=== PATIENT | male | born 1950 | race Caucasian/White ===

== ENCOUNTER 2018-09-15 13:51 | Inpatient (IN) ==
[2018-09-15] MEDS ORDERED: Morphine Inj 4 MG/ML Vial ONE (14:00)
[2018-09-15] MEDS ORDERED: Diphtheria/Tetanus/Pertussis Vaccine Inj 0.5 ML Syringe IM ONE (14:02)
[2018-09-15] MEDS ORDERED: Lidocaine PF 1% Inj 30 ML Vial ONE (14:15)
[2018-09-15 14:16] LABS: Baso # (Auto) 0.1 th/mm3 (0.0-0.2); Baso % (Auto) 1.1 % (0.0-2.0); Eos # (Auto) 1.2 th/mm3 (0.0-0.4); Eos % (Auto) 11.5 % (0.0-4.0); Hematocrit 38.5 % (39.0-51.0); Hemoglobin 13.5 gm/dL (13.0-17.0); Lymph # (Auto) 0.6 th/mm3 (1.0-4.8); Lymph % (Auto) 6.3 % (9.0-44.0); Mean Corpuscular Volume 91.4 fL (80.0-100.0); Mean Platelet Volume 7.5 fL (7.0-11.0); Mono # (Auto) 0.8 th/mm3 (0.0-0.9); Mono % (Auto) 8.4 % (0.0-8.0); Neut # (Auto) 7.3 th/mm3 (1.8-7.7); Neut % (Auto) 72.7 % (16.0-70.0); Platelet Count 218 th/mm3 (150-450); Red Blood Count 4.22 mil/mm3 (4.50-5.90); Red Cell Distribution Width 13.3 % (11.6-17.2); White Blood Count 10.1 th/mm3 (4.0-11.0)
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
[2018-09-15 14:25] LABS: Activated Partial Thrombo Time 28.2 sec (23.4-31.7); Prothrombin Time 10.2 sec (9.8-11.6)
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
[2018-09-15] MEDS ORDERED: fentaNYL Citrate Inj 100 MCG/2 ML Ampul ONE (14:37)
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
--- NOTE | 2018-09-15 14:55 | XR ---
EXAM DATE: 09/15/2018 2:45 PM EST AGE/SEX: 68 years / Male INDICATIONS: Post left chest tube placement CLINICAL DATA: This is the patient's initial encounter. Patient reports that signs and symptoms have been present for 1 day and indicates a pain score of Nonresponsive. MEDICAL/SURGICAL HISTORY: Non-responsive. Non-responsive. COMPARISON: [facility] – [place], CHEST 1V SINGLE AP, 09/15/2018. . FINDINGS: A single AP view of the chest demonstrates interval placement of a left thoracostomy tube. No pneumot horax observed. Pneumomediastinum noted. Extensive subcutaneous emphysema again seen. No effusions. M ild left basilar atelectasis. Heart is normal in size. CONCLUSION: Interval left chest tube placement. No pneumothorax observed. Pneumomediastinum observed. Electronically signed by: River Lunsford MD 09/15/2018 2:54 PM EST
[2018-09-15] MEDS ORDERED: Morphine Sulfate Inj 2 MG/ML Vial IV.PUSH PRN (15:00)
[2018-09-15] MEDS ORDERED: Morphine Inj 4 MG/ML Vial IV.PUSH PRN (15:04)
[2018-09-15] MEDS ORDERED: Sodium Chloride 0.9% 2 ML Flush PRN IV.FLUSH (15:11)
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
--- NOTE | 2018-09-15 15:39 | P.OP ---
Preoperative Diagnosis: Left pneumothorax Postoperative Diagnosis: Left pneumothorax Date of procedure: 09/15/18 Procedure: Patient's left chest was sterilely prepped and draped.5th ICR level-transverse incision performed,blunt dissection was performed to the rib.Pleural space was entered at the upper margin of the rib.A [address] was inserted and secured to skin with 0-silk.CXR confirms good position of the chest tube. Surgeon: Armida Veliz MD
[2018-09-15] MEDS: Sodium Chloride 0.9% 2 ML Flush BID IV.FLUSH SCH (20:19)
[2018-09-15] MEDS: Docusate Sodium 100 MG Capsule PO SCH (21:05)
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
[2018-09-16] MEDS ORDERED: LORazepam 1 MG Tablet PO PRN (00:13)
[2018-09-16] MEDS ORDERED: Dexmedetomidine Inj 200 MCG in Sodium Chlor 0.9% Inj 48 ML IV.CONT PRN (00:35)
--- NOTE | 2018-09-16 00:51 | XR ---
EXAM DATE: 09/16/2018 12:41 AM EST AGE/SEX: 68 years / Male INDICATIONS: Respiratory failure. CLINICAL DATA: This is the patient's subsequent encounter. Patient reports that signs and symptoms h ave been present for 1 day and indicates a pain score of Nonresponsive. MEDICAL/SURGICAL HISTORY: None. Chest tube, left. [place] [facility] [place], [place]/15/2018. . FINDINGS: Single AP view the chest. Left-sided chest tube remains in place. Severe bilateral subcutaneous emphy sema again seen. New lateral left lower lobe consolidation versus loculated pleural effusion. No evid ence of pneumothorax. CONCLUSION: 1. Extensive bilateral subcutaneous emphysema again seen. 2. No pneumothorax identified. 3. New lateral left lung base confluent opacity indicating pulmonary consolidation or loculated pleu ral effusion. Electronically signed by: Jori Xavier MD 09/16/2018 12:49 AM EST
--- NOTE | 2018-09-16 01:39 | XR ---
EXAM DATE: 09/16/2018 1:31 AM EST AGE/SEX: 68 years / Male INDICATIONS: Left chest tube placement. CLINICAL DATA: This is the patient's subsequent encounter. Patient reports that signs and symptoms h ave been present for 1 day and indicates a pain score of Nonresponsive. MEDICAL/SURGICAL HISTORY: Non-responsive. . Chest tube, left. COMPARISON: [facility] [place]ST 1V SINGLE AP, 09/16/2018. . FINDINGS: Single AP view the chest. Endotracheal tube is now in place with the tip approximately 5 cm above the hue. Extensive bilateral subcutaneous emphysema is again seen along with left-sided chest tube. L ateral left lower hemithorax opacity has decreased. Lungs otherwise clear. No pneumothorax identified . Pneumomediastinum is again noted. CONCLUSION: 1. Endotracheal tube in place. 2. Decrease in lateral left lung base opacity. 3. Extensive bilateral subcutaneous emphysema again seen. Electronically signed by: Jori Xavier MD 09/16/2018 1:37 AM EST
[2018-09-16 01:54] LABS: ABG Base Excess -5.7 mmol/L (-2-2); ABG PCO2 57 mmHg (38-42); ABG PO2 394 mmHg (61-120)
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
--- NOTE | 2018-09-16 02:16 | P.PCN ---
Date of procedure: 09/16/18 Procedure: Endotracheal Intubation Diagnosis: Trauma with massive subcutaneous emphysema Indications: Acute hypoxic and hypercarbic respiratory failure secondary to massive subcutaneous emphysema Consent: Emergent Anesthesia: No anesthesia was required Description of the Procedure: The patient was positioned in the sniffing position. Pre-oxygenation was performed using a nonrebreather mask. No anesthesia was required. The patient was obtunded.. A Poole #2 was used for laryngoscopy and a Grade IIb view was obtained. There was significant edema of the hypopharynx and larynx which distorted the anatomy. This is likely secondary to his massive subcutaneous emphysema. A 8.5 cuffed endotracheal tube was inserted atraumatically through the vocal cords. Confirmation of correct endotracheal tube placement was made by equal and bilateral breath sounds and colorimetric CO2 detection. The endotracheal tube was secured at 25 cm at the teeth. There were no immediate complications noted. The patient remained hemodynamically stable throughout the procedure. A chest x-ray has been ordered. I personally performed the procedure.
--- NOTE | 2018-09-16 02:17 | P.PCN ---
Date of procedure: 09/16/18 Procedure: Procedure: Arterial Line Placement Left radial arterial line Diagnosis: Massive subcutaneous emphysema Indications: Need for beat to beat hemodynamic monitoring Consent: Emergent Description of the Procedure: The left wrist was prepped and draped sterilely. 1% lidocaine was used for local anesthesia. The pulse was located and a needle was advanced into the artery. A 20 gauge, 12 cm catheter was advanced into the artery using a modified Seldinger technique. The catheter was sutured to the skin and a sterile dressing was applied. The catheter was connected to a pressure transducer and an arterial waveform was noted. There were no immediate complications noted. There was minimal EBL. I personally performed the procedure.
[2018-09-16] MEDS ORDERED: fentaNYL 10 mcg/mL Premix Drip 2,500 MCG/250 ML BAG IV.SIG PRN (02:18)
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
[2018-09-16] MEDS ORDERED: Albumin Human 5% Inj 500 ML IV.SIG ONE (02:19)
[2018-09-16] MEDS ORDERED: Sod Chloride 0.9% Inj 2,000 ML IV.SIG ONE (02:30)
--- NOTE | 2018-09-16 02:43 | P.EN ---
Called by RN initially for DT-CIWA protocol ordered. Received a second call about 35 min later-indicating that the patient is in respiratory distress requiring 100 NRB-which sounded that patient will need to be intubated At this time I was about to start a laparotomy and asked 's assistance evaluated the patient-he proceeded with orotracheal intubation-he also felt that patient may benefit from a second chest tube on the left-and he proceeded with the procedure patient after intubation dropped BP was resuscitated by Dr.Green Hua's prompt assistance is appreciated by the trauma team
[2018-09-16] MEDS: fentaNYL 10 mcg/mL Premix Drip 2,500 MCG/250 ML BAG IV.SIG PRN (02:54)
[2018-09-16] MEDS ORDERED: Midazolam Inj 5 MG/ML 1 ML Vial ONE (03:17)
[2018-09-16] MEDS ORDERED: Propofol Inj 500 MG/50 ML Vial ONE (03:17)
[2018-09-16] MEDS: Chlorhexidine Gluconate 2% 1 Pack (2 Cloths) TOPICAL SCH (03:52)
[2018-09-16] MEDS ORDERED: Midazolam Inj 5 MG/ML 1 ML Vial IV.PUSH ONE ×2 (04:00→11:45)
[2018-09-16] MEDS ORDERED: Chlorhexidine Gluconate 2% 1 Pack (2 Cloths) TOPICAL PRN ×2 (04:00)
[2018-09-16] MEDS ORDERED: Chlorhexidine Gluconate 2% 1 Pack (2 Cloths) TOPICAL SCH (04:00)
--- NOTE | 2018-09-16 04:26 | XR ---
EXAM DATE: 09/16/2018 4:18 AM EST AGE/SEX: 68 years / Male INDICATIONS: Verify OG placement. Respiratory distress. CLINICAL DATA: This is the patient's subsequent encounter. Patient reports that signs and symptoms h ave been present for 2 days and indicates a pain score of Nonresponsive. MEDICAL/SURGICAL HISTORY: Chronic obstructive pulmonary disease. Chest tube, left. COMPARISON: [facility] – [place], CHEST 1V SINGLE AP, 09/16/2018. . FINDINGS: 2 AP views of the chest. Nasogastric tube is now seen with the tip below the [id number] of the rad iographs. Endotracheal tube remains in place. Left-sided chest tube also remains in place. Extensive bilateral subcutaneous emphysema is again seen. No pneumothorax identified. Mild patchy opa city of the left lung base unchanged. Pneumomediastinum is again seen. CONCLUSION: 1. Nasogastric tube now seen. 2. Extensive bilateral subcutaneous emphysema and pneumomediastinum again noted. 3. No pneumothorax is seen. 4. Mild patchy opacity left lung base unchanged. Electronically signed by: Jori Xavier MD 09/16/2018 4:25 AM EST
[2018-09-16] MEDS: Oral Hygiene Kit OROPHARYNG SCH ×3 (04:40→16:07)
[2018-09-16 06:23] LABS: Baso % (Auto) 0.2 % (0.0-2.0); Eos % (Auto) 0.3 % (0.0-4.0); Hemoglobin 8.5 gm/dL (13.0-17.0); Lymph # (Auto) 0.3 th/mm3 (1.0-4.8); Lymph % (Auto) 1.8 % (9.0-44.0); Mean Corpuscular Hemoglobin 31.2 pg (27.0-34.0); Mean Platelet Volume 7.8 fL (7.0-11.0); Mono # (Auto) 1.2 th/mm3 (0.0-0.9); Mono % (Auto) 8.7 % (0.0-8.0); Neut # (Auto) 12.3 th/mm3 (1.8-7.7); Platelet Count 175 th/mm3 (150-450); Red Blood Count 2.72 mil/mm3 (4.50-5.90); Red Cell Distribution Width 13.3 % (11.6-17.2); White Blood Count 13.8 th/mm3 (4.0-11.0)
[2018-09-16] MEDS ORDERED: Potassium Chloride 25 MEQ Effervescent Tablet PO PRN (06:48)
[2018-09-16] MEDS ORDERED: Magnesium Oxide 400 MG Tablet PO PRN (06:48)
[2018-09-16] MEDS ORDERED: Potassium Chlor 20 mEq Premix 20 MEQ/100 ML PIGGYBACK IV.SIG PRN ×2 (06:48)
[2018-09-16] MEDS ORDERED: Potassium Chlor 40 mEq Premix 40 MEQ/100 ML PIGGYBACK IV.SIG PRN ×2 (06:48)
[2018-09-16] MEDS ORDERED: Potassium Phosphate 500 MG Soluble Tablet PO PRN ×2 (06:48)
[2018-09-16] MEDS ORDERED: Potassium Phosphate Inj 30 MMOL in Sodium Chlor 0.9% Inj 250 ML IV.SIG PRN (06:48)
[2018-09-16] MEDS ORDERED: Magnesium Sulfate Inj 2 GM in Sodium Chlor 0.9% Inj 96 ML IV.SIG PRN (06:48)
[2018-09-16] MEDS ORDERED: Magnesium Sulfate Inj 4 GM in Sodium Chlor 0.9% Inj 92 ML IV.SIG PRN (06:48)
[2018-09-16] MEDS ORDERED: Sodium Phosphate Inj 30 MMOL in Sodium Chlor 0.9% Inj 250 ML IV.SIG PRN (06:48)
[2018-09-16 06:55] LABS: Calcium 7.7 mg/dL (8.5-10.1); Carbon Dioxide 18.8 meq/L (21.0-32.0); Potassium 4.4 meq/L (3.5-5.1)
[2018-09-16] MEDS ORDERED: Sodium Chlor 0.9% Inj 250 ML IV.SIG SCH (09:00)
[2018-09-16 09:32] LABS: ABG Base Excess -5.1 mmol/L (-2-2); ABG PCO2 27 mmHg (38-42); ABG PO2 196 mmHg (61-120)
[2018-09-16] MEDS: Famotidine PF Inj 20 MG/2 ML Vial IV.PUSH SCH ×2 (09:37→21:20)
[2018-09-16] MEDS: Propofol 1000 mg/100 ml Inj 1,000 MG/100 ML BOTTLE IV.CONT PRN ×2 (09:38→17:42)
[2018-09-16] MEDS: Docusate Sodium 100 MG Capsule PO SCH ×2 (09:40→21:19)
[2018-09-16] MEDS: Chlorhexidine 0.12% Oral Kit 15 ML UDC OROPHARYNG SCH ×2 (09:40→21:19)
[2018-09-16] MEDS: Sodium Chloride 0.9% 2 ML Flush BID IV.FLUSH SCH ×2 (09:40→21:20)
--- NOTE | 2018-09-16 11:10 | P.PNVS ---
Subjective Subjective/Hospital Course: intubated overnight Objective Vital Signs / I&O: Vital Signs 09/15/18 14:06 09/15/18 16:00 09/15/18 16:30 Temperature 98.7 F Pulse Rate 80 93 H Respiratory Rate 14 19 Blood Pressure 143/73 H 143/73 H Pulse Oximetry 100 100 100 09/15/18 17:00 09/15/18 17:30 09/15/18 17:51 Temperature Pulse Rate 88 84 97 H Respiratory Rate 19 13 16 Blood Pressure 145/69 H 132/70 Pulse Oximetry 100 100 09/15/18 18:00 09/15/18 19:00 09/15/18 19:30 Temperature Pulse Rate 85 79 78 Respiratory Rate 15 15 15 Blood Pressure 132/64 108/64 110/61 Pulse Oximetry 99 98 97 09/15/18 20:00 09/15/18 20:16 09/15/18 21:00 Temperature 97.8 F Pulse Rate 88 96 H 82 Respiratory Rate 18 17 15 Blood Pressure 119/71 125/70 Pulse Oximetry 100 99 09/15/18 22:00 09/15/18 22:30 09/15/18 23:00 Temperature Pulse Rate 84 85 79 Respiratory Rate 14 15 14 Blood Pressure 106/65 141/70 H 114/69 Pulse Oximetry 92 L 100 97 09/15/18 23:30 09/15/18 23:47 09/16/18 00:00 Temperature Pulse Rate 90 153 H 149 H Respiratory Rate 24 36 H 38 H Blood Pressure 153/99 H 215/125 H 139/87 Pulse Oximetry 100 93 L 99 09/16/18 00:27 09/16/18 00:30 09/16/18 00:35 Temperature Pulse Rate 140 H Respiratory Rate 21 Blood Pressure 145/86 H 140/79 Pulse Oximetry 97 98 98 09/16/18 00:44 09/16/18 00:48 09/16/18 00:58 Temperature Pulse Rate 141 H 137 H 133 H Respiratory Rate 23 Blood Pressure 97/60 L 96/55 L 77/52 L Pulse Oximetry 98 98 99 09/16/18 01:00 09/16/18 01:11 09/16/18 01:14 Temperature Pulse Rate 132 H 119 H 116 H Respiratory Rate 22 31 H 23 Blood Pressure 67/41 L 58/39 L Pulse Oximetry 99 99 09/16/18 01:16 09/16/18 01:18 09/16/18 01:20 Temperature Pulse Rate 116 H 115 H 112 H Respiratory Rate 18 18 Blood Pressure 58/41 L 64/46 L 66/39 L Pulse Oximetry 100 99 99 09/16/18 01:25 09/16/18 01:30 09/16/18 02:00 Temperature Pulse Rate 97 H 95 H 109 H Respiratory Rate 22 18 Blood Pressure 87/55 L 94/56 L 139/88 Pulse Oximetry 100 100 100 09/16/18 03:00 09/16/18 03:24 09/16/18 03:50 Temperature Pulse Rate 101 H 94 H Respiratory Rate 18 14 18 Blood Pressure Pulse Oximetry 100 100 09/16/18 04:00 09/16/18 05:00 09/16/18 06:00 Temperature 96.3 F L Pulse Rate 86 79 91 H Respiratory Rate 18 18 18 Blood Pressure 93/59 L Pulse Oximetry 100 100 100 09/16/18 09:39 Temperature Pulse Rate 79 Respiratory Rate 16 Blood Pressure Pulse Oximetry 100 Intake & Output 09/15/18 09/16/18 09/16/18 18:59 06:59 18:59 Intake Total 100 / 100 3000 / 3000 50 / 50 Output Total 280 / 280 850 / 850 244 / 244 Balance -180 / -180 2150 / 2150 -194 / -194 Weight 64.8 kg Intake: IV 100 / 100 3000 / 3000 50 / 50 Precedex Inj 200 MCG In NS Inj 50 / 50 48 ML @ 0.2 MCG/KG/HR 3.24 mls/ hr IV.CONT TITRATE PRN Rx#: [id number] LR 1000 mL Inj 1,000 ML @ 75 300 / 300 mls/hr IV.CONT .[id number] [facility] Rx# :[id number] Ofirmev Inj 1,000 mg In 100 ml 100 / 100 200 / 200 @ 400 mls/hr IV.SIG Q6H [facility] Rx# :[id number] Alburx 5% Inj 500 ML @ 250 mls/ 500 / 500 hr IV.SIG ONCE ONE Rx#:[id number] NS Inj 2,000 ML @ As Directed 1999 / 1999 IV.SIG .Q0M ONE Rx#:[id number] Output: Urine 250 / 250 350 / 350 Urine Amount (Catheter) 500 / 500 Indwelling Urethral Catheter 500 / 500 Chest Tube Drainage 30 / 30 244 / 244 #1 Left Upper 142 / 142 #2 Left Upper 102 / 102 Other: # Voids 1 Weight On Admission 64.8 kg Physical Exam: Left upper extremity with significant subcutaneous emphysema Palpable left radial pulse, no signs of venous congestion Laboratory Results - last 24 hr 09/15/18 09/15/18 09/15/18 13:59 13:59 13:59 WBC 10.1 RBC 4.22 L Hgb 13.5 POC Hgb (Calc) 13.6 Hct 38.5 L POC Hct 40.0 MCV 91.4 MCH 32.0 MCHC 35.0 RDW 13.3 Plt Count 218 MPV 7.5 Neut % (Auto) 72.7 H Lymph % (Auto) 6.3 L Richardson % (Auto) 8.4 H Eos % (Auto) 11.5 H Baso % (Auto) 1.1 Neut # (Auto) 7.3 Lymph # (Auto) 0.6 L Richardson # (Auto) 0.8 Eos # (Auto) 1.2 H Baso # (Auto) 0.1 WBC Differential . Differential Comment Auto diff final PT 10.2 INR 1.0 APTT 28.2 Puncture Site Patient Temperature O2 Saturation ABG pH ABG pCO2 ABG pO2 ABG HCO3 ABG O2 Content ABG Base Excess ABG Methemoglobin Hemoglobin Carboxyhemoglobin O2 Delivery Device Vent Setting Inspired O2 Critical Value POC Sodium 131 L Sodium POC Potassium 4.3 Potassium POC Chloride 91 L Chloride Carbon Dioxide Anion Gap POC BUN 13 BUN Creatinine POC Creatinine 0.8 Estimated GFR POC Glucose 82 Random Glucose Calcium Nasal Screen MRSA (PCR) Blood Type Antibody Screen MTS Gel Crossmatch 09/15/18 09/15/18 09/16/18 13:59 15:00 01:35 WBC RBC Hgb POC Hgb (Calc) Hct POC Hct MCV MCH MCHC RDW Plt Count MPV Neut % (Auto) Lymph % (Auto) Richardson % (Auto) Eos % (Auto) Baso % (Auto) Neut # (Auto) Lymph # (Auto) Richardson # (Auto) Eos # (Auto) Baso # (Auto) WBC Differential Differential Comment PT INR APTT Puncture Site Radha Patient Temperature 98.6 O2 Saturation 97 ABG pH 7.20 L* ABG pCO2 57 H* ABG pO2 394 H ABG HCO3 21 L ABG O2 Content 13.8 ABG Base Excess -5.7 L ABG Methemoglobin 1.2 Hemoglobin 9.4 L Carboxyhemoglobin 0.0 O2 Delivery Device Ventilator Vent Setting See comment Inspired O2 100 Critical Value Yes POC Sodium Sodium POC Potassium Potassium POC Chloride Chloride Carbon Dioxide Anion Gap POC BUN BUN Creatinine POC Creatinine Estimated GFR POC Glucose Random Glucose Calcium Nasal Screen MRSA (PCR) Not detected Blood Type O Positive Antibody Screen Negative MTS Gel Crossmatch 09/16/18 09/16/18 09/16/18 05:29 05:29 08:54 WBC 13.8 H RBC 2.72 L Hgb 8.5 L D POC Hgb (Calc) Hct 25.0 L POC Hct MCV 92.0 MCH 31.2 MCHC 34.0 RDW 13.3 Plt Count 175 MPV 7.8 Neut % (Auto) 89.0 H Lymph % (Auto) 1.8 L Richardson % (Auto) 8.7 H Eos % (Auto) 0.3 Baso % (Auto) 0.2 Neut # (Auto) 12.3 H Lymph # (Auto) 0.3 L Richardson # (Auto) 1.2 H Eos # (Auto) 0.0 Baso # (Auto) 0.0 WBC Differential . Differential Comment Auto diff final PT INR APTT Puncture Site Patient Temperature O2 Saturation ABG pH ABG pCO2 ABG pO2 ABG HCO3 ABG O2 Content ABG Base Excess ABG Methemoglobin Hemoglobin Carboxyhemoglobin O2 Delivery Device Vent Setting Inspired O2 Critical Value POC Sodium Sodium 134 L POC Potassium Potassium 4.4 POC Chloride Chloride 103 Carbon Dioxide 18.8 L Anion Gap 12 POC BUN BUN 16 Creatinine 1.00 POC Creatinine Estimated GFR 75 L POC Glucose Random Glucose 148 H Calcium 7.7 L Nasal Screen MRSA (PCR) Blood Type Antibody Screen MTS Gel Crossmatch See Detail 09/16/18 09:15 WBC RBC Hgb POC Hgb (Calc) Hct POC Hct MCV MCH MCHC RDW Plt Count MPV Neut % (Auto) Lymph % (Auto) Richardson % (Auto) Eos % (Auto) Baso % (Auto) Neut # (Auto) Lymph # (Auto) Richardson # (Auto) Eos # (Auto) Baso # (Auto) WBC Differential Differential Comment PT INR APTT Puncture Site Art line Patient Temperature 98.6 O2 Saturation 96 ABG pH 7.44 H ABG pCO2 27 L ABG pO2 196 H ABG HCO3 18 L ABG O2 Content 11.2 L ABG Base Excess -5.1 L ABG Methemoglobin 0.8 Hemoglobin 7.9 L* Carboxyhemoglobin 0.1 O2 Delivery Device Ventilator Vent Setting Inspired O2 40 Critical Value Yes POC Sodium Sodium POC Potassium Potassium POC Chloride Chloride Carbon Dioxide Anion Gap POC BUN BUN Creatinine POC Creatinine Estimated GFR POC Glucose Random Glucose Calcium Nasal Screen MRSA (PCR) Blood Type Antibody Screen MTS Gel Crossmatch Impressions Chest X-Ray 09/15/18 00:00 CONCLUSION: Interval left chest tube placement. No pneumothorax observed. Pneumomediastinum observed. Venous Doppler Study 09/15/18 00:00 CONCLUSION: Very limited venous Doppler examination of the left upper extremity. Internal jugular, axillary, and subclavian veins cannot be evaluated. Brachial, basilic, cephalic, radial, and ulnar veins show no evidence of thrombus. Chest X-Ray 09/15/18 13:54 CONCLUSION: 1. Limited study. 2. Subcutaneous air. 3. Possible pneumomediastinum. Pelvis X-Ray 09/15/18 13:54 CONCLUSION: No evidence of displaced fracture. Abdomen/Pelvis CT 09/15/18 14:02 CONCLUSION: 1. Small left pneumothorax, pneumomediastinum and subcutaneous emphysema along the chest wall. 2. Left lower lobe airspace disease. 3. Uncomplicated colonic diverticulosis. 4. No evidence of traumatic injury to the abdominal or pelvic soft tissues. Chest CT 09/15/18 14:02 CONCLUSION: 1. Traumatic injury to the upper left anterior chest wall with fractured first rib 2. Extensive subcutaneous emphysema throughout the neck, anterior chest wall and left lateral chest wall. 3. Pneumomediastinum 4. 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 5. Small left pneumothorax 6. Left lower lobe airspace disease 7. COPD with emphysematous changes Chest X-Ray 09/16/18 00:20 CONCLUSION: 1. Extensive bilateral subcutaneous emphysema again seen. 2. No pneumothorax identified. 3. New lateral left lung base confluent opacity indicating pulmonary consolidation or loculated pleural effusion. Chest X-Ray 09/16/18 01:00 CONCLUSION: 1. Endotracheal tube in place. 2. Decrease in lateral left lung base opacity. 3. Extensive bilateral subcutaneous emphysema again seen. Chest X-Ray 09/16/18 15:02 CONCLUSION: 1. Nasogastric tube now seen. 2. Extensive bilateral subcutaneous emphysema and pneumomediastinum again noted. 3. No pneumothorax is seen. 4. Mild patchy opacity left lung base unchanged. 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 Awaiting left upper extremity venous duplex. Omer Carrasquillo MD [facility] [phone]
[2018-09-16] MEDS: Multivitamin Inj 10 ML, Thiamine Inj 100 MG, Folic Acid Inj 1 MG in Sodium Chlor 0.9% I... IV.SIG SCH (11:17)
--- NOTE | 2018-09-16 11:23 | XR ---
EXAM DATE: 09/16/2018 11:16 AM EST AGE/SEX: 68 years / Male INDICATIONS: Pneumothorax, attempted left line placement. CLINICAL DATA: This is the patient's subsequent encounter. Patient reports that signs and symptoms h ave been present for 2 days and indicates a pain score of Nonresponsive. MEDICAL/SURGICAL HISTORY: Chronic obstructive pulmonary disease. . chest tube COMPARISON: [facility] – [place], CHEST 1V SINGLE AP, 09/16/2018. [facility] [place], CT CHEST W CONTRAST, 09/15/2018. . FINDINGS: The ET tube, NG tube and 2 left chest tubes appear well placed. There is extensive subcutaneous emphy sema seen throughout the neck and chest regions. This is unchanged. A pneumothorax is not clearly see n. This increased density at the left base. The right lung appears clear. CONCLUSION: Extensive subcutaneous emphysema. 2 Left-sided chest tubes in place. A pneumothorax is not clearly seen. Left base consolidation or atelectasis. Electronically signed by: Solo Starkey MD 09/16/2018 11:22 AM EST
--- NOTE | 2018-09-16 11:25 | XR ---
EXAM DATE: 09/16/2018 11:18 AM EST AGE/SEX: 68 years / Male INDICATIONS: LONG-TERM, left elbow swelling. CLINICAL DATA: This is the patient's subsequent encounter. Patient reports that signs and symptoms h ave been present for 2 days and indicates a pain score of Nonresponsive. MEDICAL/SURGICAL HISTORY: None. None. COMPARISON: No prior exams available for comparison. FINDINGS: A fracture is not seen. The elbow joint appears normally aligned. The does appear to be suspected IV tubing seen over the volar aspect of the midforearm. There is extensive subcutaneous emphysema. CONCLUSION: Subcutaneous emphysema. Electronically signed by: Solo Starkey MD 09/16/2018 11:23 AM EST
--- NOTE | 2018-09-16 12:07 | P.PNCC ---
Subjective Brief History: 68-year-old male with severe COPD status post [facility] presented with extensive subcu emphysema bilateral pneumothorax on the left side. Patient in the trauma bay awake alert GCS 15 his neck was cleared according to nexus criteria. I also deferred CT scan of the head as patient's GCS is 15 and I wanted to proceed with a stat CT of the chest to see the source of his subcu emphysema as this not be delineated on the plain chest x-ray. 24 Hour Review/Hospital Course: 09/16 Patient deteriorated overnight he required orotracheal intubation and insertion of a second chest tube He was also resuscitated with crystalloid and colloids, he was started on levophed drip Chest x-ray continues to show bilateral subcu emphysema Patient is on conventional settings Lateral chest tubes have air leak this however is decreasing Urine output is adequate, patient is sedated with propofol and fentanyl He has a left subclavian vein thrombosis vascular surgery has been consulted- duplex is inconclusive Objective Vital Signs / I&O: Vital Signs 09/15/18 14:06 09/15/18 16:00 09/15/18 16:30 Temperature 98.7 F Pulse Rate 80 93 H Respiratory Rate 14 19 Blood Pressure 143/73 H 143/73 H Pulse Oximetry 100 100 100 09/15/18 17:00 09/15/18 17:30 09/15/18 17:51 Temperature Pulse Rate 88 84 97 H Respiratory Rate 19 13 16 Blood Pressure 145/69 H 132/70 Pulse Oximetry 100 100 09/15/18 18:00 09/15/18 19:00 09/15/18 19:30 Temperature Pulse Rate 85 79 78 Respiratory Rate 15 15 15 Blood Pressure 132/64 108/64 110/61 Pulse Oximetry 99 98 97 09/15/18 20:00 09/15/18 20:16 09/15/18 21:00 Temperature 97.8 F Pulse Rate 88 96 H 82 Respiratory Rate 18 17 15 Blood Pressure 119/71 125/70 Pulse Oximetry 100 99 09/15/18 22:00 09/15/18 22:30 09/15/18 23:00 Temperature Pulse Rate 84 85 79 Respiratory Rate 14 15 14 Blood Pressure 106/65 141/70 H 114/69 Pulse Oximetry 92 L 100 97 09/15/18 23:30 09/15/18 23:47 09/16/18 00:00 Temperature Pulse Rate 90 153 H 149 H Respiratory Rate 24 36 H 38 H Blood Pressure 153/99 H 215/125 H 139/87 Pulse Oximetry 100 93 L 99 09/16/18 00:27 09/16/18 00:30 09/16/18 00:35 Temperature Pulse Rate 140 H Respiratory Rate 21 Blood Pressure 145/86 H 140/79 Pulse Oximetry 97 98 98 09/16/18 00:44 09/16/18 00:48 09/16/18 00:58 Temperature Pulse Rate 141 H 137 H 133 H Respiratory Rate 23 Blood Pressure 97/60 L 96/55 L 77/52 L Pulse Oximetry 98 98 99 09/16/18 01:00 09/16/18 01:11 09/16/18 01:14 Temperature Pulse Rate 132 H 119 H 116 H Respiratory Rate 22 31 H 23 Blood Pressure 67/41 L 58/39 L Pulse Oximetry 99 99 09/16/18 01:16 09/16/18 01:18 09/16/18 01:20 Temperature Pulse Rate 116 H 115 H 112 H Respiratory Rate 18 18 Blood Pressure 58/41 L 64/46 L 66/39 L Pulse Oximetry 100 99 99 09/16/18 01:25 09/16/18 01:30 09/16/18 02:00 Temperature Pulse Rate 97 H 95 H 109 H Respiratory Rate 22 18 Blood Pressure 87/55 L 94/56 L 139/88 Pulse Oximetry 100 100 100 09/16/18 03:00 09/16/18 03:24 09/16/18 03:50 Temperature Pulse Rate 101 H 94 H Respiratory Rate 18 14 18 Blood Pressure Pulse Oximetry 100 100 09/16/18 04:00 09/16/18 05:00 09/16/18 06:00 Temperature 96.3 F L Pulse Rate 86 79 91 H Respiratory Rate 18 18 18 Blood Pressure 93/59 L Pulse Oximetry 100 100 100 09/16/18 09:39 Temperature Pulse Rate 79 Respiratory Rate 16 Blood Pressure Pulse Oximetry 100 Intake & Output 09/15/18 09/16/18 09/16/18 18:59 06:59 18:59 Intake Total 100 / 100 3000 / 3000 150 / 150 Output Total 280 / 280 850 / 850 244 / 244 Balance -180 / -180 2150 / 2150 -94 / -94 Weight 64.8 kg Intake: IV 100 / 100 3000 / 3000 150 / 150 Precedex Inj 200 MCG In NS Inj 50 / 50 48 ML @ 0.2 MCG/KG/HR 3.24 mls/ hr IV.CONT TITRATE PRN Rx#: [id number] LR 1000 mL Inj 1,000 ML @ 75 300 / 300 mls/hr IV.CONT .[id number] [facility] Rx# :[id number] Ofirmev Inj 1,000 mg In 100 ml 100 / 100 200 / 200 100 / 100 @ 400 mls/hr IV.SIG Q6H [facility] Rx# :[id number] Alburx 5% Inj 500 ML @ 250 mls/ 500 / 500 hr IV.SIG ONCE ONE Rx#:[id number] NS Inj 2,000 ML @ As Directed 1999 / 1999 IV.SIG .Q0M ONE Rx#:[id number] Output: Urine 250 / 250 350 / 350 Urine Amount (Catheter) 500 / 500 Indwelling Urethral Catheter 500 / 500 Chest Tube Drainage 30 / 30 244 / 244 #1 Left Upper 30 / 30 142 / 142 #2 Left Upper 102 / 102 Other: # Voids 1 Weight On Admission 64.8 kg Result Diagrams: 09/16/18 05:29 09/16/18 05:29 Imaging: Impressions Chest X-Ray 09/15/18 00:00 CONCLUSION: Interval left chest tube placement. No pneumothorax observed. Pneumomediastinum observed. Venous Doppler Study 09/15/18 00:00 CONCLUSION: Very limited venous Doppler examination of the left upper extremity. Internal jugular, axillary, and subclavian veins cannot be evaluated. Brachial, basilic, cephalic, radial, and ulnar veins show no evidence of thrombus. Chest X-Ray 09/15/18 13:54 CONCLUSION: 1. Limited study. 2. Subcutaneous air. 3. Possible pneumomediastinum. Pelvis X-Ray 09/15/18 13:54 CONCLUSION: No evidence of displaced fracture. Abdomen/Pelvis CT 09/15/18 14:02 CONCLUSION: 1. Small left pneumothorax, pneumomediastinum and subcutaneous emphysema along the chest wall. 2. Left lower lobe airspace disease. 3. Uncomplicated colonic diverticulosis. 4. No evidence of traumatic injury to the abdominal or pelvic soft tissues. Chest CT 09/15/18 14:02 CONCLUSION: 1. Traumatic injury to the upper left anterior chest wall with fractured first rib 2. Extensive subcutaneous emphysema throughout the neck, anterior chest wall and left lateral chest wall. 3. Pneumomediastinum 4. 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 5. Small left pneumothorax 6. Left lower lobe airspace disease 7. COPD with emphysematous changes Elbow X-Ray 09/16/18 00:00 CONCLUSION: Subcutaneous emphysema. Chest X-Ray 09/16/18 00:20 CONCLUSION: 1. Extensive bilateral subcutaneous emphysema again seen. 2. No pneumothorax identified. 3. New lateral left lung base confluent opacity indicating pulmonary consolidation or loculated pleural effusion. Chest X-Ray 09/16/18 01:00 CONCLUSION: 1. Endotracheal tube in place. 2. Decrease in lateral left lung base opacity. 3. Extensive bilateral subcutaneous emphysema again seen. Chest X-Ray 09/16/18 10:34 CONCLUSION: Extensive subcutaneous emphysema. 2 Left-sided chest tubes in place. A pneumothorax is not clearly seen. Left base consolidation or atelectasis. Chest X-Ray 09/16/18 15:02 CONCLUSION: 1. Nasogastric tube now seen. 2. Extensive bilateral subcutaneous emphysema and pneumomediastinum again noted. 3. No pneumothorax is seen. 4. Mild patchy opacity left lung base unchanged. - Exam COUNTRY DIRECTOR: Burt Coma Score is 9 t Hemodynamic/Cardiac: She requires levo fed moderate dose to maintain an Map the range of 65-70 Pulmonary/Respiratory: Mechanical ventilation extensive subcu emphysema bilateral torso Abdomen/GI Nutrition: abdomen is soft and benign Hematologic: Globin is 8.5 and patient will require 2 units of blood Assessment and Plan Plan: Continue mechanical ventilation Central line was inserted femoral vein as the left subclavian vein is not accessible and I did not want to use the right side as the patient is high risk for pneumothorax at this site as well When patient more stable we will proceed with a PICC line We will start patient on tube feeds We will continue chest tubes to suction We will wean [facility] proxy was updated at the bed
--- NOTE | 2018-09-16 12:11 | P.PCN ---
Date of procedure: 09/16/18 Pre-op diagnosis: Pneumothorax left Post-op diagnosis: same Procedure: Right femoral area was sterilely prepped and draped using the usual technique. Secondary to massive subcu emphysema procedure is technically difficult After several attempts I was able to cannulate the femoral vein, using modified Seldinger technique a femoral triple-lumen catheter was inserted and secured to skin using 3-0 silk. Patient tolerated procedure well. There is good flush and blood return from the line Surgeon: Armida Veliz Pathology: none sent Condition: stable Disposition: ICU
[2018-09-16] MEDS: Heparin - SQ 10,000 UNITS/ML Vial SQ SCH ×2 (14:58→22:45)
[2018-09-16 17:33] LABS: Hematocrit 30.5 % (39.0-51.0); Hemoglobin 10.9 gm/dL (13.0-17.0)
[2018-09-17 04:21] LABS: Baso % (Auto) 0.5 % (0.0-2.0); Eos # (Auto) 0.6 th/mm3 (0.0-0.4); Eos % (Auto) 6.1 % (0.0-4.0); Hematocrit 28.2 % (39.0-51.0); Hemoglobin 9.8 gm/dL (13.0-17.0); Lymph # (Auto) 0.5 th/mm3 (1.0-4.8); Mean Corpuscular HGB Conc 34.6 % (32.0-36.0); Mean Corpuscular Hemoglobin 30.8 pg (27.0-34.0); Mean Platelet Volume 7.9 fL (7.0-11.0); Mono # (Auto) 1.1 th/mm3 (0.0-0.9); Mono % (Auto) 11.5 % (0.0-8.0); Neut % (Auto) 75.9 % (16.0-70.0); Platelet Count 128 th/mm3 (150-450); Red Blood Count 3.17 mil/mm3 (4.50-5.90); Red Cell Distribution Width 15.2 % (11.6-17.2); White Blood Count 9.2 th/mm3 (4.0-11.0)
--- NOTE | 2018-09-17 04:43 | XR ---
EXAM DATE: 09/17/2018 3:47 AM EST AGE/SEX: 68 years / Male INDICATIONS: Pneumothorax CLINICAL DATA: This is the patient's subsequent encounter. Patient reports that signs and symptoms h ave been present for 3 days and indicates a pain score of Nonresponsive. MEDICAL/SURGICAL HISTORY: . Chronic obstructive pulmonary disease. . Chest tube COMPARISON: [facility] – [place], CHEST 1V SINGLE AP, 09/16/2018. . FINDINGS: Endotracheal tube is in good position. NG enters stomach. Left chest tube without significant pneumot horax. Minimal basilar airspace disease. Extensive subcutaneous air in the chest and neck. CONCLUSION: Stable exam with extensive subcutaneous air. No definite pneumothorax. Left chest tube, endotracheal tube and nasogastric tube unchanged. Electronically signed by: Omar Zambrano MD 09/17/2018 4:42 AM EST
[2018-09-17] MEDS: Chlorhexidine Gluconate 2% 1 Pack (2 Cloths) TOPICAL SCH (04:44)
[2018-09-17] MEDS: Oral Hygiene Kit OROPHARYNG SCH ×4 (04:44→18:00)
[2018-09-17 04:48] LABS: Alanine Aminotransferase 15 U/L (12-78); Albumin 2.8 g/dL (3.4-5.0); Anion Gap 6 meq/L (5-15); Aspartate Aminotransferase 18 U/L (15-37); Blood Urea Nitrogen 14 mg/dL (7-18); Calcium 7.9 mg/dL (8.5-10.1); Chloride 103 meq/L (98-107); Glomerular Filtration Rate Greater Than 89 mL/min (>89); Glucose,Random 118 mg/dL (74-106); Sodium 135 meq/L (136-145)
[2018-09-17 04:50] LABS: Alkaline Phosphatase 46 U/L (45-117); Total Protein 5.2 g/dL (6.4-8.2)
[2018-09-17 05:24] LABS: ABG PCO2 37 mmHg (38-42); ABG PO2 157 mmHg (61-120)
[2018-09-17] MEDS: Heparin - SQ 10,000 UNITS/ML Vial SQ SCH ×3 (06:11→21:50)
[2018-09-17] MEDS: Propofol 1000 mg/100 ml Inj 1,000 MG/100 ML BOTTLE IV.CONT PRN ×3 (06:11→23:25)
[2018-09-17] MEDS: Multivitamin Inj 10 ML, Thiamine Inj 100 MG, Folic Acid Inj 1 MG in Sodium Chlor 0.9% I... IV.SIG SCH (08:17)
[2018-09-17] MEDS: Docusate Sodium 100 MG Capsule PO SCH ×2 (08:19→21:48)
[2018-09-17] MEDS: Sodium Chloride 0.9% 2 ML Flush BID IV.FLUSH SCH ×2 (08:19→21:49)
[2018-09-17] MEDS: Chlorhexidine 0.12% Oral Kit 15 ML UDC OROPHARYNG SCH ×2 (08:20→21:47)
[2018-09-17] MEDS ORDERED: Artificial Tears Opth Drops 15 ML Bottle EACH EYE PRN (10:00)
[2018-09-17] MEDS ORDERED: Albumin Human 5% Inj 500 ML IV.SIG ONE (10:00)
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
--- NOTE | 2018-09-17 11:33 | US ---
EXAM DATE: 09/17/2018 10:52 AM EST AGE/SEX: 68 years / Male INDICATIONS: Possible Left subclavian occlusion seen on CT. CLINICAL DATA: This is the patient's subsequent encounter. Patient reports that signs and symptoms h ave been present for 2 days and indicates a pain score of Nonresponsive. MEDICAL/SURGICAL HISTORY: . Left 1st rib fracture. Pneumothorax. . Left double chest tube. COMPARISON: [facility] – [place], US VENOUS DOPPLER ARM LEFT, 09/15/2018. . FINDINGS: Left jugular, subclavian and axillary veins remain obscured by subcutaneous emphysema. CONCLUSION: 1. Nonvisualization of the left jugular, subclavian and axillary veins. 2. Traumatic occlusion cannot be confirmed. Electronically signed by: Jimi Martinez MD 09/17/2018 11:32 AM EST
[2018-09-17] MEDS: Famotidine PF Inj 20 MG/2 ML Vial IV.PUSH SCH ×2 (13:24→21:50)
[2018-09-17] MEDS: fentaNYL 10 mcg/mL Premix Drip 2,500 MCG/250 ML BAG IV.SIG PRN (23:27)
[2018-09-18] MEDS: Oral Hygiene Kit OROPHARYNG SCH ×4 (00:16→16:41)
[2018-09-18 05:36] LABS: Baso % (Auto) 0.3 % (0.0-2.0); Eos # (Auto) 0.7 th/mm3 (0.0-0.4); Eos % (Auto) 9.6 % (0.0-4.0); Hematocrit 24.3 % (39.0-51.0); Hemoglobin 8.6 gm/dL (13.0-17.0); Lymph # (Auto) 0.6 th/mm3 (1.0-4.8); Mean Corpuscular HGB Conc 35.3 % (32.0-36.0); Mean Corpuscular Hemoglobin 31.1 pg (27.0-34.0); Mean Corpuscular Volume 87.9 fL (80.0-100.0); Mean Platelet Volume 7.4 fL (7.0-11.0); Mono # (Auto) 0.8 th/mm3 (0.0-0.9); Mono % (Auto) 11.4 % (0.0-8.0); Neut # (Auto) 4.9 th/mm3 (1.8-7.7); Neut % (Auto) 70.7 % (16.0-70.0); Platelet Count 119 th/mm3 (150-450); Red Blood Count 2.76 mil/mm3 (4.50-5.90)
[2018-09-18 05:46] LABS: ABG Base Excess 3.1 mmol/L (-2-2); ABG PCO2 46 mmHg (38-42); ABG PO2 123 mmHg (61-120)
[2018-09-18 05:51] LABS: Albumin 2.7 g/dL (3.4-5.0); Anion Gap 5 meq/L (5-15); Aspartate Aminotransferase 19 U/L (15-37); Blood Urea Nitrogen 9 mg/dL (7-18); Calcium 7.9 mg/dL (8.5-10.1); Chloride 103 meq/L (98-107); Glomerular Filtration Rate Greater Than 89 mL/min (>89); Glucose,Random 112 mg/dL (74-106); Sodium 138 meq/L (136-145)
[2018-09-18 05:52] LABS: Alanine Aminotransferase 14 U/L (12-78)
[2018-09-18 05:54] LABS: Alkaline Phosphatase 51 U/L (45-117); Total Protein 5.3 g/dL (6.4-8.2)
[2018-09-18] MEDS: Chlorhexidine Gluconate 2% 1 Pack (2 Cloths) TOPICAL SCH (06:15)
[2018-09-18] MEDS: Heparin - SQ 10,000 UNITS/ML Vial SQ SCH ×3 (06:15→21:39)
--- NOTE | 2018-09-18 06:18 | XR ---
EXAM DATE: 09/18/2018 5:19 AM EST AGE/SEX: 68 years / Male INDICATIONS: Shortness of breath, evaluate pneumothorax CLINICAL DATA: This is the patient's subsequent encounter. Patient reports that signs and symptoms h ave been present for 4 - 6 days and indicates a pain score of Nonresponsive. MEDICAL/SURGICAL HISTORY: Chronic obstructive pulmonary disease. . Chest [place] [facility] [place] S[place]17/[place]. . FINDINGS: A single AP view of the chest demonstrates endotracheal tube and nasogastric tube and left chest tube in good position. Extensive subcutaneous air. Patchy airspace disease in the lungs relatively stable . Heart size normal. CONCLUSION: Support apparatus in good position. No pneumothorax. Extensive subcutaneous air. Stable patchy airspa ce disease. Electronically signed by: Omar Zambrano MD 09/18/2018 6:16 AM EST
[2018-09-18] MEDS: Multivitamin Inj 10 ML, Thiamine Inj 100 MG, Folic Acid Inj 1 MG in Sodium Chlor 0.9% I... IV.SIG SCH (09:40)
[2018-09-18] MEDS ORDERED: Albumin Human 5% Inj 500 ML IV.SIG ONE (09:44)
[2018-09-18] MEDS: Sodium Chloride 0.9% 2 ML Flush BID IV.FLUSH SCH ×2 (09:45→21:40)
[2018-09-18] MEDS: Famotidine PF Inj 20 MG/2 ML Vial IV.PUSH SCH (09:45)
[2018-09-18] MEDS: Docusate Sodium 100 MG Capsule PO SCH (09:45)
[2018-09-18] MEDS ORDERED: Sodium Chlor 0.9% Inj 250 ML IV.SIG SCH (10:00)
[2018-09-18] MEDS: Chlorhexidine 0.12% Oral Kit 15 ML UDC OROPHARYNG SCH ×2 (10:51→21:39)
--- NOTE | 2018-09-18 10:59 | P.PNCC ---
Subjective Brief History: 68-year-old male with severe COPD status post NURSING HOME presented with extensive subcu emphysema bilateral pneumothorax on the left side. Patient in the trauma bay awake alert GCS 15 his neck was cleared according to nexus criteria. I also deferred CT scan of the head as patient's GCS is 15 and I wanted to proceed with a stat CT of the chest to see the source of his subcu emphysema as this not be delineated on the plain chest x-ray. 24 Hour Review/Hospital Course: 09/16 Patient deteriorated overnight he required orotracheal intubation and insertion of a second chest tube He was also resuscitated with crystalloid and colloids, he was started on levophed drip Chest x-ray continues to show bilateral subcu emphysema Patient is on conventional settings Lateral chest tubes have air leak this however is decreasing Urine output is adequate, patient is sedated with propofol and fentanyl He has a left subclavian vein thrombosis vascular surgery has been consulted- duplex is inconclusive 09/17 Patient is doing better today He is only on 2 mics of levophed-his oxygenation also improved he is on basic vent settings Tolerating his tube feeds Continues to have air leak from 1 of the chest tubes X-ray no pneumothorax or large amount of subcutaneous air Vascular surgery will repeat the ultrasound of the subclavian vein We will obtain a PICC line as patient has a femoral line-2 small access options we have She is tolerating his tube feeds 09/18 He-started back on levo fed now is 5 mics an hour ,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 He is making good urine output so I believe he is perfusing adequately he also has no base deficit on the ABG, he is certainly slightly third spacing secondary to Sirs His hemoglobin is 8.5 I will give him 1 unit of blood and also 500 cc of albumin He is following commands not able to open his eyes secondary to severe subcu emphysema He is tolerating his tube feeds Doing actually very well on the ventilator with adequate PF ratio on FiO2 of 35 Continues to have an air leak from chest tube #2, will have chest tube #1 2 waterseal Objective Vital Signs / I&O: Vital Signs 09/17/18 11:00 09/17/18 11:15 09/17/18 11:30 Temperature Pulse Rate 84 89 91 H Respiratory Rate 16 31 H 18 Blood Pressure Pulse Oximetry 100 100 100 09/17/18 11:45 09/17/18 12:00 09/17/18 12:11 Temperature Pulse Rate 92 H 104 H 98 H Respiratory Rate 19 18 19 Blood Pressure Pulse Oximetry 100 100 09/17/18 12:14 09/17/18 12:15 09/17/18 12:30 Temperature Pulse Rate 94 H 90 Respiratory Rate 19 18 19 Blood Pressure Pulse Oximetry 100 100 100 09/17/18 12:45 09/17/18 13:00 09/17/18 13:15 Temperature Pulse Rate 87 86 86 Respiratory Rate 18 16 13 Blood Pressure Pulse Oximetry 100 100 100 09/17/18 13:30 09/17/18 13:45 09/17/18 14:00 Temperature Pulse Rate 86 84 84 Respiratory Rate 17 13 16 Blood Pressure Pulse Oximetry 100 100 100 09/17/18 14:15 09/17/18 14:30 09/17/18 14:45 Temperature Pulse Rate 82 83 82 Respiratory Rate 17 16 16 Blood Pressure Pulse Oximetry 100 100 100 09/17/18 15:00 09/17/18 15:15 09/17/18 15:16 Temperature Pulse Rate 93 H 92 H 89 Respiratory Rate 15 25 H 17 Blood Pressure Pulse Oximetry 100 100 09/17/18 15:17 09/17/18 15:30 09/17/18 15:45 Temperature Pulse Rate 87 88 Respiratory Rate 17 17 15 Blood Pressure Pulse Oximetry 100 100 100 09/17/18 16:00 09/17/18 16:15 09/17/18 16:30 Temperature 98.7 F Pulse Rate 84 84 83 Respiratory Rate 13 12 12 Blood Pressure Pulse Oximetry 100 100 100 09/17/18 16:45 09/17/18 17:00 09/17/18 17:15 Temperature Pulse Rate 83 81 82 Respiratory Rate 13 13 15 Blood Pressure Pulse Oximetry 100 100 100 09/17/18 17:30 09/17/18 17:45 09/17/18 18:00 Temperature Pulse Rate 89 90 90 Respiratory Rate 16 18 18 Blood Pressure Pulse Oximetry 100 100 100 09/17/18 18:15 09/17/18 18:30 09/17/18 18:45 Temperature Pulse Rate 91 H 90 97 H Respiratory Rate 18 17 17 Blood Pressure Pulse Oximetry 100 100 100 09/17/18 19:00 09/17/18 19:15 09/17/18 19:30 Temperature Pulse Rate 88 89 87 Respiratory Rate 16 17 16 Blood Pressure 108/64 Pulse Oximetry 100 100 100 09/17/18 19:45 09/17/18 19:47 09/17/18 19:49 Temperature Pulse Rate 99 H 95 H Respiratory Rate 19 16 18 Blood Pressure Pulse Oximetry 100 100 09/17/18 20:00 09/17/18 20:15 09/17/18 20:30 Temperature Pulse Rate 96 H 100 H 96 H Respiratory Rate 17 16 16 Blood Pressure Pulse Oximetry 100 100 100 09/17/18 20:45 09/17/18 21:00 09/17/18 21:15 Temperature Pulse Rate 95 H 95 H 90 Respiratory Rate 16 16 16 Blood Pressure Pulse Oximetry 100 100 99 09/17/18 21:30 09/17/18 21:45 09/17/18 22:00 Temperature Pulse Rate 90 91 H 89 Respiratory Rate 16 16 16 Blood Pressure Pulse Oximetry 100 100 100 09/17/18 22:15 09/17/18 22:30 09/17/18 22:45 Temperature Pulse Rate 88 90 88 Respiratory Rate 16 16 16 Blood Pressure Pulse Oximetry 100 100 100 09/17/18 23:00 09/17/18 23:15 09/17/18 23:26 Temperature Pulse Rate 90 88 90 Respiratory Rate 16 16 16 Blood Pressure Pulse Oximetry 100 100 09/17/18 23:27 09/17/18 23:30 09/17/18 23:45 Temperature Pulse Rate 90 90 Respiratory Rate 16 16 16 Blood Pressure Pulse Oximetry 100 100 100 09/17/18 23:53 09/18/18 00:00 09/18/18 00:15 Temperature Pulse Rate 90 96 H 86 Respiratory Rate 16 16 16 Blood Pressure 91/50 L Pulse Oximetry 100 100 99 09/18/18 00:30 09/18/18 00:45 09/18/18 01:00 Temperature Pulse Rate 85 84 89 Respiratory Rate 16 16 16 Blood Pressure Pulse Oximetry 100 100 98 09/18/18 01:15 09/18/18 01:30 09/18/18 01:45 Temperature Pulse Rate 81 82 82 Respiratory Rate 16 16 16 Blood Pressure Pulse Oximetry 100 100 100 09/18/18 02:00 09/18/18 02:15 09/18/18 02:30 Temperature Pulse Rate 82 81 83 Respiratory Rate 16 16 16 Blood Pressure Pulse Oximetry 100 100 100 09/18/18 02:45 09/18/18 03:00 09/18/18 03:15 Temperature Pulse Rate 81 81 80 Respiratory Rate 16 16 16 Blood Pressure Pulse Oximetry 100 100 100 09/18/18 03:30 09/18/18 03:45 09/18/18 03:52 Temperature Pulse Rate 82 84 85 Respiratory Rate 16 16 16 Blood Pressure Pulse Oximetry 100 100 100 09/18/18 04:00 09/18/18 04:15 09/18/18 04:30 Temperature Pulse Rate 81 92 H 86 Respiratory Rate 16 16 16 Blood Pressure Pulse Oximetry 100 100 100 09/18/18 04:45 09/18/18 05:00 09/18/18 05:15 Temperature Pulse Rate 84 85 84 Respiratory Rate 16 16 16 Blood Pressure Pulse Oximetry 100 100 100 09/18/18 05:30 09/18/18 05:45 09/18/18 06:00 Temperature 98.4 F Pulse Rate 96 H 86 84 Respiratory Rate 17 16 16 Blood Pressure Pulse Oximetry 100 100 100 09/18/18 06:15 09/18/18 06:30 09/18/18 06:45 Temperature Pulse Rate 85 85 86 Respiratory Rate 16 16 16 Blood Pressure 101/62 Pulse Oximetry 100 100 100 09/18/18 07:00 09/18/18 07:15 09/18/18 07:30 Temperature Pulse Rate 89 86 90 Respiratory Rate 16 16 16 Blood Pressure 97/62 L Pulse Oximetry 100 100 100 09/18/18 07:45 09/18/18 08:00 09/18/18 08:15 Temperature 99.4 F Pulse Rate 84 87 82 Respiratory Rate 16 16 16 Blood Pressure Pulse Oximetry 100 100 100 09/18/18 08:23 09/18/18 08:30 09/18/18 08:35 Temperature Pulse Rate 91 H 77 75 Respiratory Rate 16 16 16 Blood Pressure 94/59 L Pulse Oximetry 100 100 100 09/18/18 08:45 09/18/18 09:00 09/18/18 09:15 Temperature Pulse Rate 60 82 81 Respiratory Rate 16 18 16 Blood Pressure 130/65 102/61 103/62 Pulse Oximetry 99 100 100 09/18/18 09:30 09/18/18 09:45 09/18/18 10:00 Temperature Pulse Rate 81 82 80 Respiratory Rate 16 16 16 Blood Pressure 102/64 100/63 102/64 Pulse Oximetry 100 100 100 09/18/18 10:15 Temperature Pulse Rate 85 Respiratory Rate 16 Blood Pressure 94/66 L Pulse Oximetry 100 Intake & Output 09/17/18 09/18/18 09/18/18 18:59 06:59 18:59 Intake Total 1831.2 / 1831.2 2695 / 2695 Output Total 1215 / 1215 450 / 450 Balance 616.2 / 616.2 2245 / 2245 Weight 72.5 kg Intake: IV 1111.2 / 1111.2 1600 / 1600 LR 1000 mL Inj 1,000 ML @ 50 1000 / 1000 mls/hr IV.CONT .Q20H AUDREY Rx#: [id number] Diprivan 1000 mg/100 ml Inj 1, 100 / 100 100 / 100 000 mg In 100 ml @ 5 MCG/KG/MIN 1.944 mls/hr IV.CONT TITRATE PRN Rx#:[id number] Alburx 5% Inj 500 ML @ 250 mls/ 500 / 500 hr IV.SIG ONCE ONE Rx#:[id number] MVI-12 Inj 10 ML Thiamine Inj 511.2 / 511.2 100 MG Folvite Inj 1 MG In NS Inj 500 ML @ 127.8 mls/hr IV. SIG DAILY AUDREY Rx#:[id number] Levophed-Dextrose 4 mg/250 ml 250 / 250 Drip 4 mg In 250 ml @ 2 MCG/MIN 7.5 mls/hr IV.SIG TITRATE PRN Rx#:[id number] fentaNYL 10 mcg/mL Premix Drip 250 / 250 2,500 mcg In 250 ml @ 50 MCG/HR 5 mls/hr IV.SIG TITRATE PRN Rx #:[id number] Tube Feeding 600 / 600 1065 / 1065 Tube Irrigant 120 / 120 30 / 30 Output: Urine Amount (Catheter) 1175 / 1175 450 / 450 Indwelling Urethral Catheter 1175 / 1175 450 / 450 Chest Tube Drainage 40 / 40 0 / 0 #1 Left Upper 40 / 40 0 / 0 #2 Left Upper 0 / 0 Result Diagrams: 09/18/18 05:15 09/18/18 05:15 Imaging: Impressions Upper Extremity Ultrasound 09/17/18 00:00 CONCLUSION: 1. Nonvisualization of the left jugular, subclavian and axillary veins. 2. Traumatic occlusion cannot be confirmed. Chest X-Ray 09/18/18 06:00 CONCLUSION: Support apparatus in good position. No pneumothorax. Extensive subcutaneous air. Stable patchy airspace disease. 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 T Hemodynamic/Cardiac: Patient is on levo fed at 5 mics per hour to maintain M AP more than 65 Pulmonary/Respiratory: Chest x-ray stable with bilateral subcu emphysema Abdomen/GI Nutrition: Abdomen is soft mildly distended tolerating tube feeds Renal/I&O: BUN to creatinine ratio maintained making good urine Assessment and Plan Plan: Continue mechanical ventilation we will proceed with a PICC line tube feeds We will continue one chest tube to suction, number#2 to water seal We will wean Levophed valproic acid acid to support propofol for alcohol withdrawal 1 unit of blood 500 cc of albumin Echocardiogram
[2018-09-18] MEDS: Propofol 1000 mg/100 ml Inj 1,000 MG/100 ML BOTTLE IV.CONT PRN ×2 (11:00→18:55)
--- NOTE | 2018-09-18 14:37 | P.PNVS ---
Subjective Subjective/Hospital Course: Intubated, sedated Follows commands bilaterally Objective Vital Signs / I&O: Vital Signs 09/17/18 14:45 09/17/18 15:00 09/17/18 15:15 Temperature Pulse Rate 82 93 H 92 H Respiratory Rate 16 15 25 H Blood Pressure Pulse Oximetry 100 100 100 09/17/18 15:16 09/17/18 15:17 09/17/18 15:30 Temperature Pulse Rate 89 87 Respiratory Rate 17 17 17 Blood Pressure Pulse Oximetry 100 100 09/17/18 15:45 09/17/18 16:00 09/17/18 16:15 Temperature 98.7 F Pulse Rate 88 84 84 Respiratory Rate 15 13 12 Blood Pressure Pulse Oximetry 100 100 100 09/17/18 16:30 09/17/18 16:45 09/17/18 17:00 Temperature Pulse Rate 83 83 81 Respiratory Rate 12 13 13 Blood Pressure Pulse Oximetry 100 100 100 09/17/18 17:15 09/17/18 17:30 09/17/18 17:45 Temperature Pulse Rate 82 89 90 Respiratory Rate 15 16 18 Blood Pressure Pulse Oximetry 100 100 100 09/17/18 18:00 09/17/18 18:15 09/17/18 18:30 Temperature Pulse Rate 90 91 H 90 Respiratory Rate 18 18 17 Blood Pressure Pulse Oximetry 100 100 100 09/17/18 18:45 09/17/18 19:00 09/17/18 19:15 Temperature Pulse Rate 97 H 88 89 Respiratory Rate 17 16 17 Blood Pressure Pulse Oximetry 100 100 100 09/17/18 19:30 09/17/18 19:45 09/17/18 19:47 Temperature Pulse Rate 87 99 H 95 H Respiratory Rate 16 19 16 Blood Pressure 108/64 Pulse Oximetry 100 100 09/17/18 19:49 09/17/18 20:00 09/17/18 20:15 Temperature Pulse Rate 96 H 100 H Respiratory Rate 18 17 16 Blood Pressure Pulse Oximetry 100 100 100 09/17/18 20:30 09/17/18 20:45 09/17/18 21:00 Temperature Pulse Rate 96 H 95 H 95 H Respiratory Rate 16 16 16 Blood Pressure Pulse Oximetry 100 100 100 09/17/18 21:15 09/17/18 21:30 09/17/18 21:45 Temperature Pulse Rate 90 90 91 H Respiratory Rate 16 16 16 Blood Pressure Pulse Oximetry 99 100 100 09/17/18 22:00 09/17/18 22:15 09/17/18 22:30 Temperature Pulse Rate 89 88 90 Respiratory Rate 16 16 16 Blood Pressure Pulse Oximetry 100 100 100 09/17/18 22:45 09/17/18 23:00 09/17/18 23:15 Temperature Pulse Rate 88 90 88 Respiratory Rate 16 16 16 Blood Pressure Pulse Oximetry 100 100 100 09/17/18 23:26 09/17/18 23:27 09/17/18 23:30 Temperature Pulse Rate 90 90 Respiratory Rate 16 16 16 Blood Pressure Pulse Oximetry 100 100 09/17/18 23:45 09/17/18 23:53 09/18/18 00:00 Temperature Pulse Rate 90 90 96 H Respiratory Rate 16 16 16 Blood Pressure 91/50 L Pulse Oximetry 100 100 100 09/18/18 00:15 09/18/18 00:30 09/18/18 00:45 Temperature Pulse Rate 86 85 84 Respiratory Rate 16 16 16 Blood Pressure Pulse Oximetry 99 100 100 09/18/18 01:00 09/18/18 01:15 09/18/18 01:30 Temperature Pulse Rate 89 81 82 Respiratory Rate 16 16 16 Blood Pressure Pulse Oximetry 98 100 100 09/18/18 01:45 09/18/18 02:00 09/18/18 02:15 Temperature Pulse Rate 82 82 81 Respiratory Rate 16 16 16 Blood Pressure Pulse Oximetry 100 100 100 09/18/18 02:30 09/18/18 02:45 09/18/18 03:00 Temperature Pulse Rate 83 81 81 Respiratory Rate 16 16 16 Blood Pressure Pulse Oximetry 100 100 100 09/18/18 03:15 09/18/18 03:30 09/18/18 03:45 Temperature Pulse Rate 80 82 84 Respiratory Rate 16 16 16 Blood Pressure Pulse Oximetry 100 100 100 09/18/18 03:52 09/18/18 04:00 09/18/18 04:15 Temperature Pulse Rate 85 81 92 H Respiratory Rate 16 16 16 Blood Pressure Pulse Oximetry 100 100 100 09/18/18 04:30 09/18/18 04:45 09/18/18 05:00 Temperature Pulse Rate 86 84 85 Respiratory Rate 16 16 16 Blood Pressure Pulse Oximetry 100 100 100 09/18/18 05:15 09/18/18 05:30 09/18/18 05:45 Temperature Pulse Rate 84 96 H 86 Respiratory Rate 16 17 16 Blood Pressure Pulse Oximetry 100 100 100 09/18/18 06:00 09/18/18 06:15 09/18/18 06:30 Temperature 98.4 F Pulse Rate 84 85 85 Respiratory Rate 16 16 16 Blood Pressure Pulse Oximetry 100 100 100 09/18/18 06:45 09/18/18 07:00 09/18/18 07:15 Temperature Pulse Rate 86 89 86 Respiratory Rate 16 16 16 Blood Pressure 101/62 97/62 L Pulse Oximetry 100 100 100 09/18/18 07:30 09/18/18 07:45 09/18/18 08:00 Temperature 99.4 F Pulse Rate 90 84 87 Respiratory Rate 16 16 16 Blood Pressure Pulse Oximetry 100 100 100 09/18/18 08:15 09/18/18 08:23 09/18/18 08:30 Temperature Pulse Rate 82 91 H 77 Respiratory Rate 16 16 16 Blood Pressure 94/59 L Pulse Oximetry 100 100 100 09/18/18 08:35 09/18/18 08:45 09/18/18 09:00 Temperature Pulse Rate 75 60 82 Respiratory Rate 16 16 18 Blood Pressure 130/65 102/61 Pulse Oximetry 100 99 100 09/18/18 09:15 09/18/18 09:30 09/18/18 09:45 Temperature Pulse Rate 81 81 82 Respiratory Rate 16 16 16 Blood Pressure 103/62 102/64 100/63 Pulse Oximetry 100 100 100 09/18/18 10:00 09/18/18 10:15 09/18/18 10:30 Temperature Pulse Rate 80 85 80 Respiratory Rate 16 16 16 Blood Pressure 102/64 94/66 L 103/64 Pulse Oximetry 100 100 100 09/18/18 10:45 09/18/18 11:00 09/18/18 11:15 Temperature Pulse Rate 96 H 78 79 Respiratory Rate 21 16 16 Blood Pressure 109/69 108/65 107/65 Pulse Oximetry 97 100 100 09/18/18 11:30 09/18/18 11:45 09/18/18 12:00 Temperature Pulse Rate 94 H 94 H 95 H Respiratory Rate 21 16 16 Blood Pressure 126/68 113/69 117/69 Pulse Oximetry 100 100 100 09/18/18 12:01 09/18/18 12:04 09/18/18 12:15 Temperature 99.7 F H 99.5 F Pulse Rate 93 H 96 H Respiratory Rate 16 16 16 Blood Pressure 112/69 Pulse Oximetry 99 99 99 09/18/18 12:30 09/18/18 12:45 09/18/18 13:00 Temperature Pulse Rate 105 H 104 H 100 H Respiratory Rate 16 16 18 Blood Pressure 131/64 Pulse Oximetry 93 L 98 99 09/18/18 13:08 09/18/18 13:09 Temperature Pulse Rate 96 H Respiratory Rate 17 Blood Pressure 118/63 Pulse Oximetry 99 Intake & Output 09/17/18 09/18/18 09/18/18 18:59 06:59 18:59 Intake Total 1831.2 / 1831.2 2695 / 2695 600 / 600 Output Total 1215 / 1215 450 / 450 Balance 616.2 / 616.2 2245 / 2245 600 / 600 Weight 72.5 kg Intake: IV 1111.2 / 1111.2 1600 / 1600 600 / 600 LR 1000 mL Inj 1,000 ML @ 50 1000 / 1000 mls/hr IV.CONT .Q20H AUDREY Rx#: [id number] Diprivan 1000 mg/100 ml Inj 1, 100 / 100 100 / 100 100 / 100 000 mg In 100 ml @ 5 MCG/KG/MIN 1.944 mls/hr IV.CONT TITRATE PRN Rx#:[id number] Alburx 5% Inj 500 ML @ 250 mls/ 500 / 500 500 / 500 hr IV.SIG ONCE ONE Rx#:[id number] MVI-12 Inj 10 ML Thiamine Inj 511.2 / 511.2 100 MG Folvite Inj 1 MG In NS Inj 500 ML @ 127.8 mls/hr IV. SIG DAILY AUDREY Rx#:[id number] Levophed-Dextrose 4 mg/250 ml 250 / 250 Drip 4 mg In 250 ml @ 2 MCG/MIN 7.5 mls/hr IV.SIG TITRATE PRN Rx#:[id number] fentaNYL 10 mcg/mL Premix Drip 250 / 250 2,500 mcg In 250 ml @ 50 MCG/HR 5 mls/hr IV.SIG TITRATE PRN Rx #:[id number] Tube Feeding 600 / 600 1065 / 1065 Tube Irrigant 120 / 120 30 / 30 Intake (Blood Product) Amt 0 / 0 Rbc As-3 Leukoreduced Unit 0 / 0 [id number] Output: Urine Amount (Catheter) 1175 / 1175 450 / 450 Indwelling Urethral Catheter 1175 / 1175 450 / 450 Chest Tube Drainage 40 / 40 0 / 0 #1 Left Upper 40 / 40 0 / 0 #2 Left Upper 0 / 0 Physical Exam: Persistent left upper extremity subcutaneous emphysema Palpable left upper extremity radial pulse Laboratory Results - last 24 hr 09/16/18 09/18/18 09/18/18 08:54 05:15 05:15 WBC 7.0 RBC 2.76 L Hgb 8.6 L Hct 24.3 L MCV 87.9 MCH 31.1 MCHC 35.3 RDW 15.0 Plt Count 119 L MPV 7.4 Neut % (Auto) 70.7 H Lymph % (Auto) 8.0 L [place] % (Auto) 11.4 H Eos % (Auto) 9.6 H Baso % (Auto) 0.3 Neut # (Auto) 4.9 Lymph # (Auto) 0.6 L [place] # (Auto) 0.8 Eos # (Auto) 0.7 H Baso # (Auto) 0.0 WBC Differential . Differential Comment Auto diff final Puncture Site Patient Temperature O2 Saturation ABG pH ABG pCO2 ABG pO2 ABG HCO3 ABG O2 Content ABG Base Excess ABG Methemoglobin Hemoglobin Carboxyhemoglobin O2 Delivery Device Vent Setting Inspired O2 Critical Value Sodium 138 Potassium 4.0 Chloride 103 Carbon Dioxide 30.0 Anion Gap 5 BUN 9 Creatinine 0.70 Estimated GFR Greater than 89 Random Glucose 112 H Calcium 7.9 L Total Bilirubin 0.7 AST 19 ALT 14 Alkaline Phosphatase 51 Total Protein 5.3 L Albumin 2.7 L Blood Type Antibody Screen MTS Gel Crossmatch See Detail 09/18/18 09/18/18 05:35 10:20 WBC RBC Hgb Hct MCV MCH MCHC RDW Plt Count MPV Neut % (Auto) Lymph % (Auto) [place] % (Auto) Eos % (Auto) Baso % (Auto) Neut # (Auto) Lymph # (Auto) [place] # (Auto) Eos # (Auto) Baso # (Auto) WBC Differential Differential Comment Puncture Site [place] Patient Temperature 98.6 O2 Saturation 96 ABG pH 7.40 ABG pCO2 46 H ABG pO2 123 H ABG HCO3 28 H ABG O2 Content 14.3 ABG Base Excess 3.1 H ABG Methemoglobin 1.4 Hemoglobin 10.4 L Carboxyhemoglobin 1.2 O2 Delivery Device Ventilator Vent Setting See comment Inspired O2 35 Critical Value No Sodium Potassium Chloride Carbon Dioxide Anion Gap BUN Creatinine Estimated GFR Random Glucose Calcium Total Bilirubin AST ALT Alkaline Phosphatase Total Protein Albumin Blood Type O Positive Antibody Screen Negative MTS Gel Crossmatch See Detail Impressions Upper Extremity Ultrasound 09/17/18 00:00 CONCLUSION: 1. Nonvisualization of the left jugular, subclavian and axillary veins. 2. Traumatic occlusion cannot be confirmed. Chest X-Ray 09/17/18 06:00 CONCLUSION: Stable exam with extensive subcutaneous air. No definite pneumothorax. Left chest tube, endotracheal tube and nasogastric tube unchanged. Chest X-Ray 09/18/18 06:00 CONCLUSION: Support apparatus in good position. No pneumothorax. Extensive subcutaneous air. Stable patchy airspace disease. 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 I repeated the left upper extreme duplex. It was very limited due to extensive subcutaneous emphysema. We will hold off anticoagulation since the diagnosis is questionable and not confirmed, patient without signs and symptoms of venous occlusion, and the low risk of pulmonary embolism with upper extremity DVT. We will repeat the left upper extremity duplex when the subcutaneous emphysema resolves. Omer Carrasquillo MD [facility] Hospitalifax [facility] [phone]
--- NOTE | 2018-09-18 16:08 | ECHRPT ---
Indication: SOB, BLUNT CHEST TRAUMA CONCLUSIONS No obvious visible pericardial effusion. The transthoracic study is normal by two-dimensional, color flow imaging and Doppler interrogation however imag quality is limited. BP: / HR: Rhythm: Sinus Technical Quality:Very technically difficult study FINDINGS PERICARDIUM No pericardial effusion. Huan Grey MD, FACC, [id number] (Electronically Signed) Final Date:18 September 2018 16:07
[2018-09-18] MEDS: Famotidine 20 MG Tablet PO SCH (21:39)
[2018-09-18] MEDS: Senna/Docusate Sodium 8.6/50 MG Tablet PO SCH (21:39)
[2018-09-18 22:15] LABS: Hematocrit 28.5 % (39.0-51.0); Hemoglobin 9.8 gm/dL (13.0-17.0)
[2018-09-19] MEDS: Oral Hygiene Kit OROPHARYNG SCH ×4 (00:12→16:25)
[2018-09-19] MEDS: Propofol 1000 mg/100 ml Inj 1,000 MG/100 ML BOTTLE IV.CONT PRN (02:35)
--- NOTE | 2018-09-19 03:40 | XR ---
EXAM DATE: 09/19/2018 3:17 AM EST AGE/SEX: 68 years / Male INDICATIONS: Follow up trauma, worsening shortness of breath. CLINICAL DATA: This is the patient's subsequent encounter. Patient reports that signs and symptoms h ave been present for 4 - 6 days and indicates a pain score of Nonresponsive. MEDICAL/SURGICAL HISTORY: Chronic obstructive pulmonary disease. . Chest tube COMPARISON: [facility], CHEST 1V SINGLE AP, 09/18/2018. . FINDINGS: Endotracheal tube in good position. Left chest tube. Extensive subcutaneous air. NG enters stomach. M ild basilar airspace disease. No significant effusion. No pneumothorax. CONCLUSION: Support apparatus in good position. Mild basilar airspace disease. Extensive subcutaneous air. No sig nificant pneumothorax identified. Electronically signed by: Omar Zambarno MD 09/19/2018 3:39 AM EST
[2018-09-19 03:47] LABS: Baso % (Auto) 0.5 % (0.0-2.0); Eos # (Auto) 0.7 th/mm3 (0.0-0.4); Eos % (Auto) 8.6 % (0.0-4.0); Hematocrit 28.3 % (39.0-51.0); Hemoglobin 9.7 gm/dL (13.0-17.0); Lymph # (Auto) 0.4 th/mm3 (1.0-4.8); Lymph % (Auto) 4.8 % (9.0-44.0); Mean Corpuscular HGB Conc 34.3 % (32.0-36.0); Mean Corpuscular Hemoglobin 30.5 pg (27.0-34.0); Mean Corpuscular Volume 88.8 fL (80.0-100.0); Mean Platelet Volume 7.3 fL (7.0-11.0); Mono # (Auto) 0.9 th/mm3 (0.0-0.9); Mono % (Auto) 10.6 % (0.0-8.0); Neut # (Auto) 6.1 th/mm3 (1.8-7.7); Neut % (Auto) 75.5 % (16.0-70.0); Platelet Count 138 th/mm3 (150-450); Red Blood Count 3.19 mil/mm3 (4.50-5.90); White Blood Count 8.1 th/mm3 (4.0-11.0)
[2018-09-19] MEDS: Chlorhexidine Gluconate 2% 1 Pack (2 Cloths) TOPICAL SCH (04:09)
[2018-09-19 04:10] LABS: Anion Gap 4 meq/L (5-15); Blood Urea Nitrogen 10 mg/dL (7-18); Calcium 7.9 mg/dL (8.5-10.1); Carbon Dioxide 28.8 meq/L (21.0-32.0); Chloride 105 meq/L (98-107); Glomerular Filtration Rate Greater Than 89 mL/min (>89); Glucose,Random 109 mg/dL (74-106); Potassium 4.3 meq/L (3.5-5.1); Sodium 138 meq/L (136-145)
[2018-09-19] MEDS: Heparin - SQ 10,000 UNITS/ML Vial SQ SCH ×3 (05:08→22:04)
[2018-09-19] MEDS: fentaNYL 10 mcg/mL Premix Drip 2,500 MCG/250 ML BAG IV.SIG PRN (05:12)
[2018-09-19 05:44] LABS: ABG Base Excess 4.1 mmol/L (-2-2); ABG PCO2 42 mmHg (38-42); ABG PO2 92 mmHg (61-120)
[2018-09-19] MEDS: Famotidine 20 MG Tablet PO SCH ×2 (08:27→20:00)
[2018-09-19] MEDS: Senna/Docusate Sodium 8.6/50 MG Tablet PO SCH ×2 (08:27→20:01)
[2018-09-19] MEDS: Sodium Chloride 0.9% 2 ML Flush BID IV.FLUSH SCH ×2 (08:27→20:01)
[2018-09-19] MEDS: Chlorhexidine 0.12% Oral Kit 15 ML UDC OROPHARYNG SCH ×2 (08:28→20:00)
[2018-09-19] MEDS: Midazolam 100 MG/100 ML Inj 100 MG/100 ML BAG IV.CONT PRN (10:11)
--- NOTE | 2018-09-19 11:55 | P.PNCC ---
Subjective Brief History: 68-year-old male with severe COPD status post FPC presented with extensive subcu emphysema bilateral pneumothorax on the left side. Patient in the trauma bay awake alert GCS 15 his neck was cleared according to nexus criteria. I also deferred CT scan of the head as patient's GCS is 15 and I wanted to proceed with a stat CT of the chest to see the source of his subcu emphysema as this not be delineated on the plain chest x-ray. 24 Hour Review/Hospital Course: 09/16 Patient deteriorated overnight he required orotracheal intubation and insertion of a second chest tube He was also resuscitated with crystalloid and colloids, he was started on levophed drip Chest x-ray continues to show bilateral subcu emphysema Patient is on conventional settings Lateral chest tubes have air leak this however is decreasing Urine output is adequate, patient is sedated with propofol and fentanyl He has a left subclavian vein thrombosis vascular surgery has been consulted- duplex is inconclusive 09/17 Patient is doing better today He is only on 2 mics of levophed-his oxygenation also improved he is on basic vent settings Tolerating his tube feeds Continues to have air leak from 1 of the chest tubes X-ray no pneumothorax or large amount of subcutaneous air Vascular surgery will repeat the ultrasound of the subclavian vein We will obtain a PICC line as patient has a femoral line-2 small access options we have She is tolerating his tube feeds 09/18 He-started back on levo fed now is 5 mics an hour ,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 He is making good urine output so I believe he is perfusing adequately he also has no base deficit on the ABG, he is certainly slightly third spacing secondary to Sirs His hemoglobin is 8.5 I will give him 1 unit of blood and also 500 cc of albumin He is following commands not able to open his eyes secondary to severe subcu emphysema He is tolerating his tube feeds Doing actually very well on the ventilator with adequate PF ratio on FiO2 of 35 Continues to have an air leak from chest tube #2, will have chest tube #1 2 waterseal 09/19/2018 Patient did not sustain neurologic injury but he remains intubated ventilated in the face of additional injuries On small dose propofol and on fentanyl for pain We will start administering some Roxicodone via the NG tube in order to decrease the fentanyl needs Hemodynamically patient is stable On initial arrival he was on small dose Levophed which in the meantime has been removed and patient maintains his blood pressure Bilateral breath sounds on assist control ventilation with decreasing level of FiO2 and excellent PO2 FiO2 gradient Both lungs are expanded and patient has 2 left-sided chest tubes 1 of which has a small air leak Still significant amount of subcutaneous air I believe patient's lung would get worse before it gets better because of the contusion and possible aspiration at the time of the accident Abdomen soft, enteral feeds tolerated Renal function preserved Plan We will patient's PO2 FiO2 gradient is improving he is by no means ready for extubation Cardiac echo pending Medical history not known and this also may be an obstacle to safe extubation Objective Vital Signs / I&O: Vital Signs 09/18/18 12:00 09/18/18 12:01 09/18/18 12:04 Temperature 99.7 F H Pulse Rate 95 H 93 H Respiratory Rate 16 16 16 Blood Pressure 117/69 Pulse Oximetry 100 99 99 09/18/18 12:15 09/18/18 12:30 09/18/18 12:45 Temperature 99.5 F Pulse Rate 96 H 105 H 104 H Respiratory Rate 16 16 16 Blood Pressure 112/69 Pulse Oximetry 99 93 L 98 09/18/18 13:00 09/18/18 13:08 09/18/18 13:09 Temperature Pulse Rate 100 H 96 H 96 H Respiratory Rate 18 17 16 Blood Pressure 131/64 118/63 Pulse Oximetry 99 99 100 09/18/18 13:15 09/18/18 13:30 09/18/18 13:39 Temperature Pulse Rate 94 H 91 H 93 H Respiratory Rate 16 16 16 Blood Pressure 104/62 Pulse Oximetry 100 100 100 09/18/18 13:45 09/18/18 14:00 09/18/18 14:09 Temperature Pulse Rate 93 H 87 86 Respiratory Rate 16 16 16 Blood Pressure 104/62 102/59 L Pulse Oximetry 100 100 100 09/18/18 14:15 09/18/18 14:30 09/18/18 14:39 Temperature Pulse Rate 85 88 85 Respiratory Rate 16 16 16 Blood Pressure 106/63 Pulse Oximetry 100 100 100 09/18/18 14:45 09/18/18 15:00 09/18/18 15:09 Temperature Pulse Rate 90 84 84 Respiratory Rate 16 16 18 Blood Pressure 108/62 Pulse Oximetry 100 100 99 09/18/18 15:15 09/18/18 15:30 09/18/18 15:39 Temperature Pulse Rate 82 85 81 Respiratory Rate 16 16 16 Blood Pressure 94/57 L Pulse Oximetry 100 100 100 09/18/18 15:45 09/18/18 16:00 09/18/18 16:15 Temperature Pulse Rate 80 77 78 Respiratory Rate 16 16 16 Blood Pressure 106/57 L Pulse Oximetry 100 100 100 09/18/18 16:30 09/18/18 16:39 09/18/18 16:45 Temperature Pulse Rate 77 88 85 Respiratory Rate 16 16 16 Blood Pressure 114/63 112/59 L Pulse Oximetry 100 100 100 09/18/18 17:00 09/18/18 17:11 09/18/18 17:15 Temperature 100.1 F H Pulse Rate 87 90 Respiratory Rate 16 16 16 Blood Pressure 110/58 L Pulse Oximetry 100 100 100 09/18/18 17:22 09/18/18 17:30 09/18/18 17:45 Temperature Pulse Rate 86 86 85 Respiratory Rate 16 16 Blood Pressure 100/58 L Pulse Oximetry 100 100 09/18/18 18:00 09/18/18 18:15 09/18/18 18:30 Temperature Pulse Rate 83 81 81 Respiratory Rate 16 16 16 Blood Pressure 122/64 135/72 Pulse Oximetry 100 100 100 09/18/18 18:45 09/18/18 19:00 09/18/18 19:15 Temperature Pulse Rate 84 103 H 108 H Respiratory Rate 16 16 18 Blood Pressure 135/64 Pulse Oximetry 100 98 98 09/18/18 19:30 09/18/18 19:45 09/18/18 20:00 Temperature 100.8 F H Pulse Rate 105 H 110 H 119 H Respiratory Rate 18 16 20 Blood Pressure 135/72 160/73 H Pulse Oximetry 99 99 98 09/18/18 20:15 09/18/18 20:25 09/18/18 20:30 Temperature Pulse Rate 121 H 116 H 117 H Respiratory Rate 17 17 16 Blood Pressure 134/73 Pulse Oximetry 99 100 100 09/18/18 20:45 09/18/18 21:00 09/18/18 21:15 Temperature Pulse Rate 116 H 110 H 114 H Respiratory Rate 18 17 17 Blood Pressure 129/61 Pulse Oximetry 100 100 100 09/18/18 21:30 09/18/18 21:45 09/18/18 22:00 Temperature Pulse Rate 117 H 112 H 114 H Respiratory Rate 17 17 18 Blood Pressure 130/60 129/63 Pulse Oximetry 99 99 92 L 09/18/18 22:15 09/18/18 22:25 09/18/18 22:30 Temperature Pulse Rate 106 H 101 H 100 H Respiratory Rate 16 16 16 Blood Pressure 110/56 L Pulse Oximetry 99 100 100 09/18/18 22:31 09/18/18 22:41 09/18/18 22:45 Temperature Pulse Rate 100 H 95 H 96 H Respiratory Rate 16 16 16 Blood Pressure 113/61 102/58 L Pulse Oximetry 100 99 99 09/18/18 22:46 09/18/18 22:53 09/18/18 23:00 Temperature Pulse Rate 96 H 89 86 Respiratory Rate 17 16 16 Blood Pressure 100/59 L 101/58 L Pulse Oximetry 99 98 98 09/18/18 23:01 09/18/18 23:15 09/18/18 23:16 Temperature Pulse Rate 84 76 76 Respiratory Rate 16 16 16 Blood Pressure 109/62 121/63 Pulse Oximetry 98 98 98 09/18/18 23:30 09/18/18 23:31 09/18/18 23:37 Temperature Pulse Rate 72 73 71 Respiratory Rate 16 16 16 Blood Pressure 129/70 Pulse Oximetry 98 98 09/18/18 23:45 09/18/18 23:46 09/19/18 00:00 Temperature 99 F Pulse Rate 76 68 74 Respiratory Rate 16 16 16 Blood Pressure 127/68 Pulse Oximetry 100 100 99 09/19/18 00:01 09/19/18 00:15 09/19/18 00:16 Temperature Pulse Rate 73 76 75 Respiratory Rate 16 16 16 Blood Pressure 139/73 136/71 Pulse Oximetry 99 99 99 09/19/18 00:30 09/19/18 00:31 09/19/18 00:45 Temperature Pulse Rate 73 73 80 Respiratory Rate 16 16 16 Blood Pressure 141/72 H Pulse Oximetry 99 99 100 09/19/18 00:46 09/19/18 01:00 09/19/18 01:01 Temperature Pulse Rate 80 79 81 Respiratory Rate 16 16 16 Blood Pressure 130/65 122/66 Pulse Oximetry 100 100 100 09/19/18 01:10 09/19/18 01:15 09/19/18 01:16 Temperature Pulse Rate 80 79 Respiratory Rate 16 16 16 Blood Pressure 122/63 Pulse Oximetry 100 100 100 09/19/18 01:30 09/19/18 01:31 09/19/18 01:40 Temperature Pulse Rate 81 80 79 Respiratory Rate 16 16 16 Blood Pressure 119/69 117/66 Pulse Oximetry 100 100 100 09/19/18 01:45 09/19/18 01:46 09/19/18 02:00 Temperature Pulse Rate 80 78 76 Respiratory Rate 16 16 16 Blood Pressure 116/67 Pulse Oximetry 100 100 100 09/19/18 02:01 09/19/18 02:15 09/19/18 02:16 Temperature Pulse Rate 75 98 H 93 H Respiratory Rate 16 26 H 16 Blood Pressure 120/64 121/72 Pulse Oximetry 100 94 L 94 L 09/19/18 02:30 09/19/18 02:31 09/19/18 02:40 Temperature Pulse Rate 116 H 114 H 124 H Respiratory Rate 37 H 27 H 24 Blood Pressure 119/67 175/81 H Pulse Oximetry 82 L 97 92 L 09/19/18 02:45 09/19/18 02:46 09/19/18 03:00 Temperature Pulse Rate 130 H 130 H 131 H Respiratory Rate 26 H 23 24 Blood Pressure 160/75 H Pulse Oximetry 92 L 100 100 09/19/18 03:01 09/19/18 03:09 09/19/18 03:15 Temperature Pulse Rate 131 H 126 H 117 H Respiratory Rate 25 H 21 18 Blood Pressure 205/72 H 137/67 Pulse Oximetry 100 98 97 09/19/18 03:16 09/19/18 03:23 09/19/18 03:30 Temperature Pulse Rate 116 H 108 H 102 H Respiratory Rate 21 16 16 Blood Pressure 106/62 Pulse Oximetry 97 100 09/19/18 03:31 09/19/18 03:40 09/19/18 03:45 Temperature Pulse Rate 101 H 95 H 93 H Respiratory Rate 16 16 16 Blood Pressure 99/57 L 105/63 Pulse Oximetry 100 100 98 09/19/18 03:46 09/19/18 04:00 09/19/18 04:01 Temperature 99.6 F Pulse Rate 93 H 99 H 96 H Respiratory Rate 16 16 16 Blood Pressure 120/57 L 126/62 Pulse Oximetry 97 96 96 09/19/18 04:03 09/19/18 04:15 09/19/18 04:16 Temperature Pulse Rate 88 88 Respiratory Rate 16 16 16 Blood Pressure 124/64 Pulse Oximetry 98 95 95 09/19/18 04:30 09/19/18 04:31 09/19/18 04:45 Temperature Pulse Rate 82 82 79 Respiratory Rate 16 16 16 Blood Pressure 136/63 Pulse Oximetry 96 97 96 09/19/18 04:46 09/19/18 05:00 09/19/18 05:01 Temperature Pulse Rate 79 75 75 Respiratory Rate 16 16 16 Blood Pressure 132/66 144/70 H Pulse Oximetry 96 97 97 09/19/18 05:15 09/19/18 05:16 09/19/18 05:30 Temperature Pulse Rate 74 74 75 Respiratory Rate 16 16 16 Blood Pressure 134/66 Pulse Oximetry 97 97 97 09/19/18 05:31 09/19/18 05:45 09/19/18 05:46 Temperature Pulse Rate 75 74 73 Respiratory Rate 16 16 16 Blood Pressure 126/64 126/65 Pulse Oximetry 97 97 96 09/19/18 06:00 09/19/18 06:01 09/19/18 06:15 Temperature Pulse Rate 68 68 70 Respiratory Rate 16 16 16 Blood Pressure 135/68 Pulse Oximetry 97 98 98 09/19/18 06:16 09/19/18 06:30 09/19/18 06:31 Temperature Pulse Rate 70 72 72 Respiratory Rate 16 16 16 Blood Pressure 130/66 126/65 Pulse Oximetry 98 98 98 09/19/18 06:45 09/19/18 06:46 09/19/18 07:00 Temperature Pulse Rate 70 69 68 Respiratory Rate 16 16 16 Blood Pressure 123/64 Pulse Oximetry 97 98 99 09/19/18 07:01 09/19/18 07:15 09/19/18 07:16 Temperature Pulse Rate 67 66 66 Respiratory Rate 16 16 16 Blood Pressure 129/67 138/74 Pulse Oximetry 99 100 100 09/19/18 07:30 09/19/18 07:31 09/19/18 07:45 Temperature Pulse Rate 66 67 68 Respiratory Rate 16 16 16 Blood Pressure 130/68 Pulse Oximetry 100 100 100 09/19/18 07:46 09/19/18 08:00 09/19/18 08:01 Temperature 99.0 F Pulse Rate 70 78 79 Respiratory Rate 16 26 H 12 Blood Pressure 143/74 H 128/63 Pulse Oximetry 100 100 100 09/19/18 08:15 09/19/18 08:16 09/19/18 08:30 Temperature Pulse Rate 85 82 81 Respiratory Rate 9 L 16 17 Blood Pressure 118/62 Pulse Oximetry 100 100 100 09/19/18 08:31 09/19/18 08:45 09/19/18 08:46 Temperature 99.0 F Pulse Rate 79 85 85 Respiratory Rate 16 16 16 Blood Pressure 116/68 125/72 Pulse Oximetry 100 100 100 09/19/18 09:00 09/19/18 09:01 09/19/18 09:10 Temperature Pulse Rate 88 86 91 H Respiratory Rate 16 16 20 Blood Pressure 121/65 Pulse Oximetry 100 100 100 09/19/18 09:15 09/19/18 09:16 09/19/18 09:30 Temperature Pulse Rate 93 H 93 H 95 H Respiratory Rate 17 20 18 Blood Pressure 117/65 Pulse Oximetry 100 100 99 09/19/18 09:31 09/19/18 09:45 09/19/18 09:46 Temperature Pulse Rate 94 H 92 H 93 H Respiratory Rate 18 17 16 Blood Pressure 119/63 120/64 Pulse Oximetry 99 98 98 09/19/18 10:00 09/19/18 10:01 09/19/18 10:15 Temperature Pulse Rate 117 H 113 H 106 H Respiratory Rate 16 23 18 Blood Pressure 145/71 H Pulse Oximetry 89 L 100 98 09/19/18 10:16 09/19/18 10:30 09/19/18 10:31 Temperature Pulse Rate 105 H 114 H 110 H Respiratory Rate 18 19 18 Blood Pressure 142/55 H 134/66 Pulse Oximetry 97 97 97 09/19/18 10:45 09/19/18 10:46 09/19/18 11:00 Temperature Pulse Rate 120 H 117 H 110 H Respiratory Rate 19 19 20 Blood Pressure 155/71 H Pulse Oximetry 97 97 98 09/19/18 11:01 09/19/18 11:15 09/19/18 11:16 Temperature Pulse Rate 111 H 111 H 109 H Respiratory Rate 17 20 16 Blood Pressure 144/68 H 128/61 Pulse Oximetry 98 97 96 09/19/18 11:39 Temperature Pulse Rate 112 H Respiratory Rate 18 Blood Pressure Pulse Oximetry 100 Intake & Output 09/18/18 09/19/18 09/19/18 18:59 06:59 18:59 Intake Total 4641.2 / 4641.2 1154 / 1154 865 / 865 Output Total 400 / 400 1265 / 1265 Balance 4241.2 / 4241.2 -111 / -111 865 / 865 Weight 75.7 kg Intake: IV 3461.2 / 3461.2 600 / 600 865 / 865 LR 1000 mL Inj 1,000 ML @ 50 1000 / 1000 800 / 800 mls/hr IV.CONT .Q20H [facility] Rx#: [id number] Diprivan 1000 mg/100 ml Inj 1, 200 / 200 100 / 100 65 / 65 000 mg In 100 ml @ 5 MCG/KG/MIN 1.944 mls/hr IV.CONT TITRATE PRN Rx#:[id number] Alburx 5% Inj 500 ML @ 250 mls/ 500 / 500 hr IV.SIG ONCE ONE Rx#:[id number] LR 1000 mL Inj 1,000 ML @ 999 1000 / 1000 mls/hr IV.SIG .Q1H1M [facility] Rx#: [id number] MVI-12 Inj 10 ML Thiamine Inj 511.2 / 511.2 100 MG Folvite Inj 1 MG In NS Inj 500 ML @ 127.8 mls/hr IV. SIG DAILY [facility] Rx#:[id number] Levophed-Dextrose 4 mg/250 ml 250 / 250 Drip 4 mg In 250 ml @ 2 MCG/MIN 7.5 mls/hr IV.SIG TITRATE PRN Rx#:[id number] NS Inj 250 ML @ 15 mls/hr IV. 250 / 250 SIG ONCE [facility] Rx#:[id number] fentaNYL 10 mcg/mL Premix Drip 250 / 250 2,500 mcg In 250 ml @ 50 MCG/HR 5 mls/hr IV.SIG TITRATE PRN Rx #:[id number] Tube Feeding 600 / 600 554 / 554 Tube Irrigant 180 / 180 Intake (Blood Product) Amt 400 / 400 Rbc As-3 Leukoreduced Unit 400 / 400 [id number] Output: Urine Amount (Catheter) 400 / 400 1225 / 1225 Indwelling Urethral Catheter 400 / 400 1225 / 1225 Chest Tube Drainage 40 / 40 #1 Left Upper 0 / 0 #2 Left Upper 40 / 40 Result Diagrams: 09/19/18 03:35 09/19/18 03:35 Imaging: Impressions Chest X-Ray 09/19/18 00:00 CONCLUSION: Support apparatus in good position. Mild basilar airspace disease. Extensive subcutaneous air. No significant pneumothorax identified. Disinhibition Score: 14.00 Aggression Score: 14.00 Lability Score: 14.00 Agitated Behavior Total Score: 14 - Exam CVT TECH: Patient did not sustain neurologic injury but he remains intubated ventilated in the face of additional injuries On small dose propofol and on fentanyl for pain We will start administering some Roxicodone via the NG tube in order to decrease the fentanyl needs Hemodynamic/Cardiac: Hemodynamically patient is stable On initial arrival he was on small dose Levophed which in the meantime has been removed and patient maintains his blood pressure Pulmonary/Respiratory: Bilateral breath sounds on assist control ventilation with decreasing level of FiO2 and excellent PO2 FiO2 gradient Both lungs are expanded and patient has 2 left-sided chest tubes 1 of which has a small air leak Still significant amount of subcutaneous air I believe patient's lung would get worse before it gets better because of the contusion and possible aspiration at the time of the accident Abdomen/GI Nutrition: Abdomen soft, enteral feeds tolerated Renal/I&O: Renal function preserved Assessment and Plan Plan: Continue mechanical ventilation we will proceed with a PICC line tube feeds We will continue one chest tube to suction, number#2 to water seal We will wean Levophed valproic acid acid to support propofol for alcohol withdrawal 1 unit of blood 500 cc of albumin Echocardiogram Attestation: Plan We will patient's PO2 FiO2 gradient is improving he is by no means ready for extubation Cardiac echo pending Medical history not known and this also may be an obstacle to safe extubation Critical care time 34 minutes
[2018-09-19 18:36] LABS: Hematocrit 27.9 % (39.0-51.0); Hemoglobin 10.1 gm/dL (13.0-17.0)
[2018-09-19] MEDS ORDERED: Albumin Human 5% Inj 500 ML IV.SIG ONE (20:00)
[2018-09-20] MEDS: Oral Hygiene Kit OROPHARYNG SCH ×5 (00:49→23:50)
[2018-09-20] MEDS: Chlorhexidine Gluconate 2% 1 Pack (2 Cloths) TOPICAL SCH (03:27)
[2018-09-20 05:02] LABS: Baso % (Auto) 0.3 % (0.0-2.0); Eos # (Auto) 0.6 th/mm3 (0.0-0.4); Eos % (Auto) 9.6 % (0.0-4.0); Hemoglobin 8.8 gm/dL (13.0-17.0); Lymph # (Auto) 0.3 th/mm3 (1.0-4.8); Lymph % (Auto) 4.5 % (9.0-44.0); Mean Corpuscular Hemoglobin 30.6 pg (27.0-34.0); Mean Corpuscular Volume 90.2 fL (80.0-100.0); Mean Platelet Volume 7.3 fL (7.0-11.0); Mono # (Auto) 1.1 th/mm3 (0.0-0.9); Mono % (Auto) 15.9 % (0.0-8.0); Neut # (Auto) 4.7 th/mm3 (1.8-7.7); Neut % (Auto) 69.7 % (16.0-70.0); Platelet Count 145 th/mm3 (150-450); Red Blood Count 2.89 mil/mm3 (4.50-5.90); Red Cell Distribution Width 14.9 % (11.6-17.2); White Blood Count 6.7 th/mm3 (4.0-11.0)
[2018-09-20 05:14] LABS: Anion Gap 5 meq/L (5-15); Blood Urea Nitrogen 13 mg/dL (7-18); Calcium 7.9 mg/dL (8.5-10.1); Carbon Dioxide 29.9 meq/L (21.0-32.0); Chloride 103 meq/L (98-107); Glomerular Filtration Rate Greater Than 89 mL/min (>89); Glucose,Random 102 mg/dL (74-106); Potassium 4.3 meq/L (3.5-5.1); Sodium 138 meq/L (136-145)
[2018-09-20 05:27] LABS: ABG Base Excess 4.7 mmol/L (-2-2); ABG PCO2 40 mmHg (38-42); ABG PO2 117 mmHg (61-120)
[2018-09-20] MEDS: Heparin - SQ 10,000 UNITS/ML Vial SQ SCH (05:59)
[2018-09-20] MEDS: Famotidine 20 MG Tablet PO SCH ×2 (08:57→20:05)
[2018-09-20] MEDS: Sodium Chloride 0.9% 2 ML Flush BID IV.FLUSH SCH ×2 (08:57→20:06)
[2018-09-20] MEDS: Senna/Docusate Sodium 8.6/50 MG Tablet PO SCH ×2 (08:57→20:05)
[2018-09-20] MEDS: Chlorhexidine 0.12% Oral Kit 15 ML UDC OROPHARYNG SCH ×2 (08:58→20:05)
[2018-09-20] MEDS ORDERED: Albumin Human 5% Inj 500 ML IV.SIG ONE ×2 (13:00→22:00)
--- NOTE | 2018-09-20 13:33 | ECHRPT ---
Indication: BLUNT CHEST TRAUMA CONCLUSIONS Technically difficult study. In limited images, the left ventricular systolic function is hyperdynamic with an estimated ejection fraction in the range of 65-70%. No pericardial effusion. BP: / HR: Rhythm: Sinus MEASUREMENTS (Male / Female) Normal Values Technical Quality:Technically difficult study 2D ECHO LV Diastolic Diameter PLAX 3.8 cm 4.2 - 5.9 / 3.9 - 5.3 cm LV Systolic Diameter PLAX 2.6 cm IVS Diastolic Thickness 0.7 cm 0.6 - 1.0 / 0.6 - 0.9 cm LVPW Diastolic Thickness 0.7 cm 0.6 - 1.0 / 0.6 - 0.9 cm LV Relative Wall Thickness 0.4 RV Internal Dim ED PLAX 1.7 cm DOPPLER AV Peak Velocity 127.0 cm/s AV Peak Gradient 6.5 mmHg AV Mean Gradient 4.0 mmHg AV Velocity Time Integral 21.4 cm LVOT Peak Velocity 129.0 cm/s LVOT Peak Gradient 6.7 mmHg LVOT Velocity Time Integral 24.7 cm Mitral E Point Velocity 72.6 cm/s Mitral A Point Velocity 87.4 cm/s Mitral E to A Ratio 0.8 TR Peak Velocity 187.0 cm/s TR Peak Gradient 14.0 mmHg Right Atrial Pressure 10.0 mmHg Pulmonary Artery Systolic Pressu 24.0 mmHg Right Ventricular Systolic Press 24.0 mmHg PV Peak Velocity 136.0 cm/s PV Peak Gradient 7.4 mmHg FINDINGS LEFT VENTRICLE Normal left ventricular size. Wall thickness is normal. In limited images, the left ventricular systolic function is hyperdynamic with an estimated ejection fraction in the range of 65-70%. RIGHT VENTRICLE Grossly normal LEFT ATRIUM The left atrial size is normal. RIGHT ATRIUM The right atrium is not well visualized. ATRIAL SEPTUM The interatrial septum not well visualized. AORTA The aortic root and proximal ascending aorta are not well visualized. MITRAL VALVE Grossly normal mitral valve. No mitral valve stenosis or regurgitation. AORTIC VALVE Trileaflet aortic valve. No aortic valve stenosis or regurgitation. TRICUSPID VALVE Grossly normal There is trace tricuspid valve regurgitation. PULMONARY VALVE The pulmonary valve is not well visualized. PERICARDIUM No pericardial effusion. Gurmeet Quinteros DO (Electronically Signed) Final Date:20 September 2018 13:32
[2018-09-20] MEDS: Enoxaparin Inj 40 MG/0.4 ML Syringe SQ SCH (14:55)
[2018-09-20] MEDS ORDERED: Sod Chloride 0.9% Inj 1,000 ML IV.SIG SCH (18:00)
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
[2018-09-20] MEDS: Sod Chloride 0.9% Inj 1,000 ML IV.SIG SCH (21:36)
[2018-09-20] MEDS: Midazolam 100 MG/100 ML Inj 100 MG/100 ML BAG IV.CONT PRN (23:32)
[2018-09-21] MEDS: fentaNYL 10 mcg/mL Premix Drip 2,500 MCG/250 ML BAG IV.SIG PRN (01:41)
[2018-09-21] MEDS: Oral Hygiene Kit OROPHARYNG SCH ×3 (04:59→15:50)
[2018-09-21 05:07] LABS: Baso % (Auto) 0.2 % (0.0-2.0); Eos # (Auto) 0.7 th/mm3 (0.0-0.4); Eos % (Auto) 10.1 % (0.0-4.0); Hematocrit 23.4 % (39.0-51.0); Hemoglobin 8.2 gm/dL (13.0-17.0); Lymph # (Auto) 0.2 th/mm3 (1.0-4.8); Lymph % (Auto) 3.5 % (9.0-44.0); Mean Corpuscular Hemoglobin 31.3 pg (27.0-34.0); Mean Corpuscular Volume 89.4 fL (80.0-100.0); Mean Platelet Volume 7.5 fL (7.0-11.0); Mono % (Auto) 15.6 % (0.0-8.0); Neut # (Auto) 4.6 th/mm3 (1.8-7.7); Neut % (Auto) 70.6 % (16.0-70.0); Platelet Count 134 th/mm3 (150-450); Red Blood Count 2.62 mil/mm3 (4.50-5.90); White Blood Count 6.6 th/mm3 (4.0-11.0)
[2018-09-21 05:18] LABS: Anion Gap 6 meq/L (5-15); Blood Urea Nitrogen 20 mg/dL (7-18); Calcium 8.1 mg/dL (8.5-10.1); Carbon Dioxide 26.5 meq/L (21.0-32.0); Chloride 107 meq/L (98-107); Glomerular Filtration Rate Greater Than 89 mL/min (>89); Glucose,Random 103 mg/dL (74-106); Potassium 4.2 meq/L (3.5-5.1); Sodium 139 meq/L (136-145)
[2018-09-21] MEDS: Enoxaparin Inj 40 MG/0.4 ML Syringe SQ SCH (08:41)
[2018-09-21] MEDS: Famotidine 20 MG Tablet PO SCH ×2 (08:43→20:57)
[2018-09-21] MEDS: Sodium Chloride 0.9% 2 ML Flush BID IV.FLUSH SCH ×2 (08:43→20:57)
[2018-09-21] MEDS: Senna/Docusate Sodium 8.6/50 MG Tablet PO SCH ×2 (08:43→20:58)
[2018-09-21] MEDS: Chlorhexidine 0.12% Oral Kit 15 ML UDC OROPHARYNG SCH ×2 (08:44→20:58)
--- NOTE | 2018-09-21 10:55 | XR ---
EXAM DATE: 09/21/2018 10:33 AM EST AGE/SEX: 68 years / Male INDICATIONS: Short of breath. CLINICAL DATA: This is the patient's initial encounter. Patient reports that signs and symptoms have been present for 1 week and indicates a pain score of Nonresponsive. MEDICAL/SURGICAL HISTORY: Chronic obstructive pulmonary disease. . chest tube, intubation COMPARISON: [facility] – [place], CHEST 1V SINGLE AP, 09/19/2018. . FINDINGS: Endotracheal tube tip is present several centimeters above the hue. Nasogastric tube descends into the stomach. Left thoracostomy tube is stable in good position. There is extensive subcutaneous emph ysema throughout grossly unchanged. Mild consolidative change at the left lung base. No definite pneu mothorax appreciated. Cardiac contours are stable. CONCLUSION: Stable chest appearance Electronically signed by: Solo Licona MD 09/21/2018 10:53 AM EST
[2018-09-21] MEDS: Sod Chloride 0.9% Inj 1,000 ML IV.SIG SCH ×2 (11:18→18:12)
[2018-09-21] MEDS ORDERED: Sod Chloride 0.9% Inj 1,000 ML IV.SIG SCH (11:24)
[2018-09-21] MEDS: Artificial Tears Opth Drops 15 ML Bottle EACH EYE SCH ×2 (18:12→20:58)
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
[2018-09-22] MEDS: Artificial Tears Opth Drops 15 ML Bottle EACH EYE SCH ×6 (00:39→21:00)
[2018-09-22] MEDS: Oral Hygiene Kit OROPHARYNG SCH ×4 (00:39→16:57)
[2018-09-22] MEDS: fentaNYL 10 mcg/mL Premix Drip 2,500 MCG/250 ML BAG IV.SIG PRN (03:18)
--- NOTE | 2018-09-22 04:54 | XR ---
EXAM DATE: 09/22/2018 4:47 AM EST AGE/SEX: 68 years / Male INDICATIONS: Shortness of breath. CLINICAL DATA: This is the patient's subsequent encounter. Patient reports that signs and symptoms h ave been present for 1 week and indicates a pain score of Nonresponsive. MEDICAL/SURGICAL HISTORY: Chronic obstructive pulmonary disease. None. COMPARISON: [facility], CHEST 1V SINGLE AP, 09/21/2018. . FINDINGS: Left-sided chest tube without significant pneumothorax. Endotracheal tube and nasogastric tube in goo d position. Extensive subcutaneous air. Mild basilar airspace disease is stable. No pneumothorax iden tified. CONCLUSION: Support apparatus in good position with left chest tube. No pneumothorax. Mild basilar airspace disea se. Electronically signed by: Omar Zambrano MD 09/22/2018 4:53 AM EST
[2018-09-22 05:23] LABS: Baso # (Auto) 0.1 th/mm3 (0.0-0.2); Baso % (Auto) 0.5 % (0.0-2.0); Eos # (Auto) 0.4 th/mm3 (0.0-0.4); Eos % (Auto) 4.4 % (0.0-4.0); Hematocrit 25.1 % (39.0-51.0); Hemoglobin 8.4 gm/dL (13.0-17.0); Lymph # (Auto) 0.1 th/mm3 (1.0-4.8); Mean Corpuscular HGB Conc 33.6 % (32.0-36.0); Mean Corpuscular Hemoglobin 30.8 pg (27.0-34.0); Mean Corpuscular Volume 91.7 fL (80.0-100.0); Mean Platelet Volume 7.2 fL (7.0-11.0); Mono # (Auto) 1.6 th/mm3 (0.0-0.9); Mono % (Auto) 17.4 % (0.0-8.0); Neut # (Auto) 7.3 th/mm3 (1.8-7.7); Neut % (Auto) 76.7 % (16.0-70.0); Platelet Count 184 th/mm3 (150-450); Red Blood Count 2.74 mil/mm3 (4.50-5.90); Red Cell Distribution Width 15.2 % (11.6-17.2); White Blood Count 9.5 th/mm3 (4.0-11.0)
[2018-09-22 05:35] LABS: ABG Base Excess -3.1 mmol/L (-2-2); ABG PCO2 44 mmHg (38-42); ABG PO2 133 mmHg (61-120)
[2018-09-22 05:52] LABS: Blood Urea Nitrogen 28 mg/dL (7-18); Calcium 8.1 mg/dL (8.5-10.1); Carbon Dioxide 24.4 meq/L (21.0-32.0); Glomerular Filtration Rate Greater Than 89 mL/min (>89); Glucose,Random 75 mg/dL (74-106)
[2018-09-22 06:28] LABS: Anion Gap 8 meq/L (5-15); Chloride 110 meq/L (98-107); Potassium 4.5 meq/L (3.5-5.1); Sodium 142 meq/L (136-145)
[2018-09-22] MEDS: Sod Chloride 0.9% Inj 1,000 ML IV.SIG SCH ×2 (06:33→16:56)
[2018-09-22] MEDS: Midazolam 100 MG/100 ML Inj 100 MG/100 ML BAG IV.CONT PRN (06:49)
[2018-09-22] MEDS ORDERED: Sod Chloride 0.9% Inj 1,000 ML IV.SIG ONE (07:00)
[2018-09-22] MEDS: Senna/Docusate Sodium 8.6/50 MG Tablet PO SCH ×2 (09:22→21:00)
[2018-09-22] MEDS: Enoxaparin Inj 40 MG/0.4 ML Syringe SQ SCH (09:22)
[2018-09-22] MEDS: Famotidine 20 MG Tablet PO SCH ×2 (09:22→21:00)
[2018-09-22] MEDS: Chlorhexidine 0.12% Oral Kit 15 ML UDC OROPHARYNG SCH ×2 (09:22→21:00)
[2018-09-22] MEDS: Sodium Chloride 0.9% 2 ML Flush BID IV.FLUSH SCH ×2 (09:23→21:00)
[2018-09-22 10:55] LABS: Sodium,Urine Random 9 meq/L
[2018-09-22 11:03] LABS: Creatinine,Urine Random 153 mg/dL (27-300)
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
[2018-09-22] MEDS ORDERED: Sod Chloride 0.9% Inj 1,000 ML IV.SIG SCH (22:30)
[2018-09-23] MEDS: Oral Hygiene Kit OROPHARYNG SCH ×4 (00:04→15:57)
[2018-09-23] MEDS: Artificial Tears Opth Drops 15 ML Bottle EACH EYE SCH ×6 (00:12→21:04)
[2018-09-23] MEDS: Sod Chloride 0.9% Inj 1,000 ML IV.SIG SCH ×2 (03:00→09:22)
[2018-09-23 06:27] LABS: ABG Base Excess -1.6 mmol/L (-2-2); ABG PCO2 50 mmHg (38-42); ABG PO2 104 mmHg (61-120)
[2018-09-23] MEDS: Chlorhexidine 0.12% Oral Kit 15 ML UDC OROPHARYNG SCH ×2 (09:19→21:03)
[2018-09-23] MEDS: Enoxaparin Inj 40 MG/0.4 ML Syringe SQ SCH (09:20)
[2018-09-23] MEDS: Sodium Chloride 0.9% 2 ML Flush BID IV.FLUSH SCH ×2 (09:20→21:03)
[2018-09-23] MEDS: Senna/Docusate Sodium 8.6/50 MG Tablet PO SCH ×2 (09:20→21:04)
[2018-09-23] MEDS: Famotidine 20 MG Tablet PO SCH ×2 (09:21→21:04)
[2018-09-23] MEDS: Hydrocortisone Sod Succinate 100 MG Vial IV.PUSH SCH ×2 (10:20→15:57)
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
[2018-09-23] MEDS: fentaNYL 10 mcg/mL Premix Drip 2,500 MCG/250 ML BAG IV.SIG PRN (18:36)
[2018-09-24] MEDS: Sod Chloride 0.9% Inj 1,000 ML IV.SIG SCH ×4 (00:30→18:41)
[2018-09-24] MEDS: Hydrocortisone Sod Succinate 100 MG Vial IV.PUSH SCH ×4 (01:31→22:20)
[2018-09-24] MEDS: Oral Hygiene Kit OROPHARYNG SCH ×5 (01:39→23:18)
[2018-09-24] MEDS: Artificial Tears Opth Drops 15 ML Bottle EACH EYE SCH ×6 (01:39→20:30)
--- NOTE | 2018-09-24 04:16 | XR ---
EXAM DATE: 09/24/2018 4:01 AM EST AGE/SEX: 68 years / Male INDICATIONS: Respiratory failure. CLINICAL DATA: This is the patient's subsequent encounter. Patient reports that signs and symptoms h ave been present for 1 week and indicates a pain score of Nonresponsive. MEDICAL/SURGICAL HISTORY: Chronic obstructive pulmonary disease. None. COMPARISON: [facility] – [place], CHEST 1V SINGLE AP, 09/22/2018. . FINDINGS: Portable AP view of the chest demonstrates a normal-sized cardiac silhouette. ETT, nasogastric tube, and left chest tube remain present. No pneumothorax is visualized. There is subtle bibasilar opacity. No pleural effusion or pneumothorax is identified. Bilateral chest wall and supraclavicular subcutan eous emphysema remains. CONCLUSION: No significant interval change is identified. Left chest tube remains present and no pneumothorax is identified. There is likely mild atelectasis versus consolidation at the lung bases. Electronically signed by: Solo Coon MD 09/24/2018 4:15 AM EST
[2018-09-24 05:32] LABS: Baso % (Auto) 0.2 % (0.0-2.0); Hematocrit 27.2 % (39.0-51.0); Hemoglobin 9.1 gm/dL (13.0-17.0); Lymph # (Auto) 0.2 th/mm3 (1.0-4.8); Lymph % (Auto) 1.5 % (9.0-44.0); Mean Corpuscular HGB Conc 33.3 % (32.0-36.0); Mean Corpuscular Hemoglobin 30.2 pg (27.0-34.0); Mean Corpuscular Volume 90.8 fL (80.0-100.0); Mean Platelet Volume 7.4 fL (7.0-11.0); Mono # (Auto) 1.1 th/mm3 (0.0-0.9); Mono % (Auto) 9.4 % (0.0-8.0); Neut % (Auto) 88.9 % (16.0-70.0); Platelet Count 297 th/mm3 (150-450); White Blood Count 11.2 th/mm3 (4.0-11.0)
[2018-09-24 06:00] LABS: Anion Gap 8 meq/L (5-15); Blood Urea Nitrogen 33 mg/dL (7-18); Calcium 8.6 mg/dL (8.5-10.1); Carbon Dioxide 25.4 meq/L (21.0-32.0); Chloride 113 meq/L (98-107); Glomerular Filtration Rate Greater Than 89 mL/min (>89); Glucose,Random 127 mg/dL (74-106); Potassium 4.6 meq/L (3.5-5.1); Sodium 146 meq/L (136-145)
[2018-09-24] MEDS: Chlorhexidine 0.12% Oral Kit 15 ML UDC OROPHARYNG SCH ×2 (07:37→20:29)
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
[2018-09-24] MEDS: Enoxaparin Inj 40 MG/0.4 ML Syringe SQ SCH (08:32)
[2018-09-24] MEDS: Famotidine 20 MG Tablet PO SCH ×2 (08:35→20:29)
[2018-09-24] MEDS: Senna/Docusate Sodium 8.6/50 MG Tablet PO SCH ×2 (08:35→20:29)
[2018-09-24] MEDS: Sodium Chloride 0.9% 2 ML Flush BID IV.FLUSH SCH ×2 (08:35→20:29)
[2018-09-24] MEDS ORDERED: RASS Change Order OTHER ONE (09:00)
[2018-09-24] MEDS: Dexmedetomidine Inj 200 MCG in Sodium Chlor 0.9% Inj 48 ML IV.CONT PRN ×3 (09:15→22:26)
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
[2018-09-24] MEDS: fentaNYL 10 mcg/mL Premix Drip 2,500 MCG/250 ML BAG IV.SIG PRN (20:31)
[2018-09-25] MEDS: Artificial Tears Opth Drops 15 ML Bottle EACH EYE SCH ×6 (00:21→20:33)
[2018-09-25] MEDS: Dexmedetomidine Inj 200 MCG in Sodium Chlor 0.9% Inj 48 ML IV.CONT PRN ×4 (02:11→19:09)
[2018-09-25] MEDS: Oral Hygiene Kit OROPHARYNG SCH ×3 (03:48→16:43)
--- NOTE | 2018-09-25 04:01 | XR ---
EXAM DATE: 09/25/2018 3:55 AM EST AGE/SEX: 68 years / Male INDICATIONS: Respiratory failure. CLINICAL DATA: This is the patient's subsequent encounter. Patient reports that signs and symptoms h ave been present for 1 week and indicates a pain score of Nonresponsive. MEDICAL/SURGICAL HISTORY: Chronic obstructive pulmonary disease. Non-responsive. COMPARISON: [facility] – [place], CHEST 1V SINGLE AP, 09/24/2018. [facility] – [place] CHEST 1V SINGLE AP, 09/22/2018. . FINDINGS: Portable AP view of the chest demonstrates a normal-sized cardiac silhouette. ETT and nasogastric tub e remain present. Left chest tube is in place with the tubing kinked at the mediastinum and distal ti p overlying the apex of the left hemithorax. No pneumothorax is identified. There is stable mild biba silar pleural-parenchymal opacity. Bilateral chest wall and supraclavicular subcutaneous emphysema re nessa. CONCLUSION: 1. Left chest tube remains present and is kinked similar to the prior examinations. No pneumothorax is visualized. 2. Stable bibasilar pleural-parenchymal opacities. Electronically signed by: Solo oCon MD 09/25/2018 4:00 AM EST
[2018-09-25] MEDS: Sod Chloride 0.9% Inj 1,000 ML IV.SIG SCH ×3 (04:24→14:57)
[2018-09-25 05:48] LABS: ABG Base Excess -0.3 mmol/L (-2-2); ABG PCO2 35 mmHg (38-42); ABG PO2 136 mmHg (61-120)
[2018-09-25] MEDS: Hydrocortisone Sod Succinate 100 MG Vial IV.PUSH SCH ×2 (06:16→20:33)
[2018-09-25 08:59] LABS: Baso # (Auto) 0.1 th/mm3 (0.0-0.2); Baso % (Auto) 0.5 % (0.0-2.0); Hematocrit 29.4 % (39.0-51.0); Hemoglobin 9.7 gm/dL (13.0-17.0); Lymph # (Auto) 0.1 th/mm3 (1.0-4.8); Mean Corpuscular HGB Conc 32.9 % (32.0-36.0); Mean Corpuscular Hemoglobin 29.9 pg (27.0-34.0); Mean Corpuscular Volume 90.9 fL (80.0-100.0); Mono # (Auto) 1.1 th/mm3 (0.0-0.9); Mono % (Auto) 8.2 % (0.0-8.0); Neut # (Auto) 11.9 th/mm3 (1.8-7.7); Neut % (Auto) 90.3 % (16.0-70.0); Platelet Count 298 th/mm3 (150-450); Red Blood Count 3.23 mil/mm3 (4.50-5.90); Red Cell Distribution Width 15.1 % (11.6-17.2); White Blood Count 13.2 th/mm3 (4.0-11.0)
[2018-09-25 09:23] LABS: Anion Gap 6 meq/L (5-15); Blood Urea Nitrogen 31 mg/dL (7-18); Calcium 8.7 mg/dL (8.5-10.1); Carbon Dioxide 23.6 meq/L (21.0-32.0); Chloride 116 meq/L (98-107); Glomerular Filtration Rate Greater Than 89 mL/min (>89); Glucose,Random 151 mg/dL (74-106); Potassium 4.3 meq/L (3.5-5.1); Sodium 146 meq/L (136-145)
[2018-09-25] MEDS: Chlorhexidine 0.12% Oral Kit 15 ML UDC OROPHARYNG SCH ×2 (09:41→19:53)
[2018-09-25] MEDS: Famotidine 20 MG Tablet PO SCH ×2 (09:41→20:32)
[2018-09-25] MEDS: Sodium Chloride 0.9% 2 ML Flush BID IV.FLUSH SCH ×2 (09:41→20:32)
[2018-09-25] MEDS: Senna/Docusate Sodium 8.6/50 MG Tablet PO SCH ×2 (09:41→20:32)
[2018-09-25] MEDS: Enoxaparin Inj 40 MG/0.4 ML Syringe SQ SCH (09:41)
[2018-09-25] MEDS ORDERED: Midazolam Inj 5 MG/ML 1 ML Vial ONE (11:52)
[2018-09-25] MEDS ORDERED: Midazolam Inj 5 MG/ML 1 ML Vial IV.PUSH ONE (13:00)
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
[2018-09-25] MEDS: Midazolam 100 MG/100 ML Inj 100 MG/100 ML BAG IV.CONT PRN (19:44)
[2018-09-26] MEDS: Sod Chloride 0.9% Inj 1,000 ML IV.SIG SCH (00:04)
[2018-09-26] MEDS: Artificial Tears Opth Drops 15 ML Bottle EACH EYE SCH ×6 (00:05→21:19)
[2018-09-26] MEDS: Oral Hygiene Kit OROPHARYNG SCH ×4 (00:05→16:11)
[2018-09-26 05:38] LABS: Hematocrit 30.5 % (39.0-51.0); Lymph # (Auto) 0.3 th/mm3 (1.0-4.8); Lymph % (Auto) 1.5 % (9.0-44.0); Mean Corpuscular HGB Conc 32.6 % (32.0-36.0); Mean Corpuscular Volume 91.8 fL (80.0-100.0); Mono # (Auto) 1.9 th/mm3 (0.0-0.9); Mono % (Auto) 10.4 % (0.0-8.0); Neut # (Auto) 16.4 th/mm3 (1.8-7.7); Neut % (Auto) 88.1 % (16.0-70.0); Platelet Count 404 th/mm3 (150-450); Red Blood Count 3.32 mil/mm3 (4.50-5.90); White Blood Count 18.6 th/mm3 (4.0-11.0)
[2018-09-26 06:07] LABS: Alanine Aminotransferase 18 U/L (12-78); Albumin 2.3 g/dL (3.4-5.0); Anion Gap 5 meq/L (5-15); Aspartate Aminotransferase 18 U/L (15-37); Blood Urea Nitrogen 32 mg/dL (7-18); Calcium 7.9 mg/dL (8.5-10.1); Carbon Dioxide 29.4 meq/L (21.0-32.0); Chloride 116 meq/L (98-107); Glomerular Filtration Rate 89 mL/min (>89); Glucose,Random 146 mg/dL (74-106); Potassium 4.1 meq/L (3.5-5.1); Sodium 150 meq/L (136-145)
[2018-09-26 06:10] LABS: Alkaline Phosphatase 112 U/L (45-117); Total Protein 5.8 g/dL (6.4-8.2)
[2018-09-26 06:10] LABS: ABG Base Excess 3.6 mmol/L (-2-2); ABG PCO2 49 mmHg (38-42); ABG PO2 98 mmHg (61-120)
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
[2018-09-26] MEDS: Famotidine 20 MG Tablet PO SCH ×2 (09:07→21:18)
[2018-09-26] MEDS: Chlorhexidine 0.12% Oral Kit 15 ML UDC OROPHARYNG SCH ×2 (09:07→21:17)
[2018-09-26] MEDS: Hydrocortisone Sod Succinate 100 MG Vial IV.PUSH SCH ×2 (09:07→23:13)
[2018-09-26] MEDS: Senna/Docusate Sodium 8.6/50 MG Tablet PO SCH ×2 (09:07→21:18)
[2018-09-26] MEDS: Enoxaparin Inj 40 MG/0.4 ML Syringe SQ SCH (09:08)
[2018-09-26] MEDS: Sodium Chloride 0.9% 2 ML Flush BID IV.FLUSH SCH ×2 (09:08→21:19)
--- NOTE | 2018-09-26 12:21 | XR ---
EXAM DATE: 09/26/2018 12:17 PM EST AGE/SEX: 68 years / Male INDICATIONS: Post left chest tube removal CLINICAL DATA: This is the patient's subsequent encounter. Patient reports that signs and symptoms h ave been present for 3 days and indicates a pain score of Nonresponsive. MEDICAL/SURGICAL HISTORY: . Chronic obstructive pulmonary disease. Non-responsive. COMPARISON: C, CHEST 1V SINGLE AP, 09/26/2018. . FINDINGS: The endotracheal tube and NG tube remain in place. The lung arevalo remain well aerated bilaterally. T here is no evidence of pneumothorax. There is a left-sided central line in place. The previously note d left-sided chest tube has been removed. The heart size is within normal limits and stable. There co ntinues to be some subcutaneous emphysema along both chest ferraro. CONCLUSION: 1. Left-sided chest tube removed. 2. No evidence of pneumothorax. Electronically signed by: Everton Carlson MD 09/26/2018 12:19 PM EST
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
[2018-09-26] MEDS: Midazolam 100 MG/100 ML Inj 100 MG/100 ML BAG IV.CONT PRN (16:47)
[2018-09-26 21:02] LABS: ABG Base Excess 4.9 mmol/L (-2-2); ABG PCO2 57 mmHg (38-42); ABG PO2 108 mmHg (61-120)
--- NOTE | 2018-09-26 21:12 | XR ---
EXAM DATE: 09/26/2018 9:08 PM EST AGE/SEX: 68 years / Male INDICATIONS: S/P chest tube removal. CLINICAL DATA: This is the patient's subsequent encounter. Patient reports that signs and symptoms h ave been present for 1 day and indicates a pain score of Nonresponsive. MEDICAL/SURGICAL HISTORY: . Chronic obstructive pulmonary disease. Non-responsive. COMPARISON: [facility], CHEST 1V SINGLE AP, 09/26/2018. . FINDINGS: There is a stable ETT and NGT. Stable subcutaneous emphysema in the lower cervical soft tissues and b ilateral chest ferraro. No significant pneumothorax. Cardiomediastinal contours are within normal limit s. Remainder of exam is unchanged. CONCLUSION: 1. Stable ETT and NGT. 2. No significant pneumothorax with stable subcutaneous emphysema. Electronically signed by: Boy Hays MD 09/26/2018 9:11 PM EST
[2018-09-27] MEDS: Oral Hygiene Kit OROPHARYNG SCH ×4 (01:37→16:30)
[2018-09-27] MEDS: Artificial Tears Opth Drops 15 ML Bottle EACH EYE SCH ×6 (01:37→20:58)
--- NOTE | 2018-09-27 03:37 | XR ---
EXAM DATE: 09/27/2018 3:18 AM EST AGE/SEX: 68 years / Male INDICATIONS: Evaluate for pneumothorax. CLINICAL DATA: This is the patient's subsequent encounter. Patient reports that signs and symptoms h ave been present for 2 weeks and indicates a pain score of Nonresponsive. MEDICAL/SURGICAL HISTORY: Chronic obstructive pulmonary disease. None. COMPARISON: [facility], CHEST 1V SINGLE AP, 09/26/2018. . FINDINGS: Portable frontal views of the chest show an endotracheal tube with the tip 3 cm from the hue. Naso gastric tube tip courses off the inferior margin of the film. Left subclavian central line. Subcutane ous air overlying the base of the neck bilaterally. No pneumothorax. Lungs are clear. Heart is normal in size. No effusions. CONCLUSION: No pneumothorax. Electronically signed by: River Lunsford MD 09/27/2018 3:36 AM EST
[2018-09-27 05:54] LABS: Baso % (Auto) 0.1 % (0.0-2.0); Hematocrit 28.9 % (39.0-51.0); Hemoglobin 9.5 gm/dL (13.0-17.0); Lymph # (Auto) 0.2 th/mm3 (1.0-4.8); Lymph % (Auto) 0.9 % (9.0-44.0); Mean Corpuscular HGB Conc 32.9 % (32.0-36.0); Mean Corpuscular Volume 91.3 fL (80.0-100.0); Mean Platelet Volume 7.6 fL (7.0-11.0); Mono # (Auto) 1.7 th/mm3 (0.0-0.9); Mono % (Auto) 9.2 % (0.0-8.0); Neut # (Auto) 16.2 th/mm3 (1.8-7.7); Neut % (Auto) 89.8 % (16.0-70.0); Platelet Count 324 th/mm3 (150-450); Red Blood Count 3.17 mil/mm3 (4.50-5.90); Red Cell Distribution Width 15.3 % (11.6-17.2)
[2018-09-27 06:16] LABS: ABG Base Excess 6.7 mmol/L (-2-2); ABG PCO2 59 mmHg (38-42); ABG PO2 102 mmHg (61-120)
[2018-09-27 06:21] LABS: Albumin 2.3 g/dL (3.4-5.0); Anion Gap 4 meq/L (5-15); Aspartate Aminotransferase 13 U/L (15-37); Blood Urea Nitrogen 30 mg/dL (7-18); Calcium 8.5 mg/dL (8.5-10.1); Carbon Dioxide 31.4 meq/L (21.0-32.0); Chloride 116 meq/L (98-107); Glomerular Filtration Rate Greater Than 89 mL/min (>89); Glucose,Random 164 mg/dL (74-106); Potassium 4.2 meq/L (3.5-5.1); Sodium 151 meq/L (136-145)
[2018-09-27 06:22] LABS: Alanine Aminotransferase 21 U/L (12-78)
[2018-09-27 06:24] LABS: Alkaline Phosphatase 105 U/L (45-117); Total Protein 5.8 g/dL (6.4-8.2)
[2018-09-27] MEDS: Chlorhexidine 0.12% Oral Kit 15 ML UDC OROPHARYNG SCH ×2 (08:32→20:56)
[2018-09-27] MEDS: Hydrocortisone Sod Succinate 100 MG Vial IV.PUSH SCH ×2 (08:32→20:57)
[2018-09-27] MEDS: Enoxaparin Inj 40 MG/0.4 ML Syringe SQ SCH (08:33)
[2018-09-27] MEDS: Famotidine 20 MG Tablet PO SCH ×2 (08:33→20:55)
[2018-09-27] MEDS: Senna/Docusate Sodium 8.6/50 MG Tablet PO SCH ×2 (08:33→20:56)
[2018-09-27] MEDS: Sodium Chloride 0.9% 2 ML Flush BID IV.FLUSH SCH ×2 (08:34→20:56)
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
[2018-09-27] MEDS: Midazolam 100 MG/100 ML Inj 100 MG/100 ML BAG IV.CONT PRN (14:52)
--- NOTE | 2018-09-27 18:46 | XR ---
EXAM DATE: 09/27/2018 6:40 PM EST AGE/SEX: 68 years / Male INDICATIONS: Evaluate for left sided pneumothorax. CLINICAL DATA: This is the patient's subsequent encounter. Patient reports that signs and symptoms h ave been present for 2 weeks and indicates a pain score of Nonresponsive. MEDICAL/SURGICAL HISTORY: . Chronic obstructive pulmonary disease. None. [place] [facility] [place]. [facility] [place]. . FINDINGS: Patchy, mostly peripheral parenchymal opacities are again demonstrated of both lungs. No pleural effu blanca demonstrated. No pneumothorax. Left chest wall emphysema again seen but decreased. Endotracheal tube tip is approximately 4 cm above the hue. Nasogastric tube courses into the stoma ch. There is a left subclavian central venous catheter with tip in superior vena cava. CONCLUSION: 1. No significant change mild patchy parenchymal consolidation of both lungs. 2. No pneumothorax. 3. Decreasing chest wall emphysema. Electronically signed by: Solo Pinto MD 09/27/2018 6:45 PM EST
[2018-09-28] MEDS: Midazolam 100 MG/100 ML Inj 100 MG/100 ML BAG IV.CONT PRN ×2 (00:20→18:24)
[2018-09-28] MEDS: Oral Hygiene Kit OROPHARYNG SCH ×4 (00:21→15:13)
[2018-09-28] MEDS: Artificial Tears Opth Drops 15 ML Bottle EACH EYE SCH ×6 (00:21→20:43)
[2018-09-28] MEDS: Morphine Inj 4 MG/ML Vial IV.PUSH PRN ×2 (00:27→10:17)
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
[2018-09-28 05:28] LABS: Baso % (Auto) 0.1 % (0.0-2.0); Hemoglobin 8.4 gm/dL (13.0-17.0); Lymph # (Auto) 0.3 th/mm3 (1.0-4.8); Mean Corpuscular HGB Conc 33.5 % (32.0-36.0); Mean Corpuscular Hemoglobin 30.5 pg (27.0-34.0); Mean Platelet Volume 7.9 fL (7.0-11.0); Mono # (Auto) 1.3 th/mm3 (0.0-0.9); Mono % (Auto) 8.7 % (0.0-8.0); Neut % (Auto) 89.2 % (16.0-70.0); Platelet Count 304 th/mm3 (150-450); Red Blood Count 2.75 mil/mm3 (4.50-5.90); Red Cell Distribution Width 15.2 % (11.6-17.2); White Blood Count 14.6 th/mm3 (4.0-11.0)
[2018-09-28 05:37] LABS: ABG Base Excess 8.7 mmol/L (-2-2); ABG PCO2 46 mmHg (38-42); ABG PO2 113 mmHg (61-120)
--- NOTE | 2018-09-28 05:38 | CT ---
EXAM DATE: 09/28/2018 4:47 AM EST AGE/SEX: 68 years / Male INDICATIONS: Shortness of breath, possible bronchial fistula. CLINICAL DATA: This is the patient's subsequent encounter. Patient reports that signs and symptoms h ave been present for 4 - 6 days and indicates a pain score of Nonresponsive. MEDICAL/SURGICAL HISTORY: Chronic obstructive pulmonary disease. . Left side chest tubes. RADIATION DOSE: 12.80 CTDI (mGy) COMPARISON: No prior exams available for comparison. TECHNIQUE: Multiple contiguous axial images were obtained through the chest without contrast. Image s were obtained in suspended respiration using multiple row detector helical technique. Using automa gigi exposure control and adjustment of the mA and/or kV according to patient size, radiation dose was kept as low as reasonably achievable to obtain optimal diagnostic quality images. DICOM format imag e data is available electronically for review and comparison. FINDINGS: Lungs: Diffuse emphysematous changes most pronounced within the apices. 3 nodular densities are seen involving the right lung. Within the right upper lobe this measures 15 mm and two 9 mm nodules withi n the right lower lobe. Groundglass consolidation involving the left lower lobe. Mediastinum: Tiny pericardial effusion. Heart is normal in size. Coronary artery and aortic atherosc lerotic calcifications. Pulmonary arteries are normal in caliber. No mass or adenopathy. Endotracheal tube within the trachea.. Pleurae: Tiny pneumothorax anteriorly involving the left chest. A tiny loculated effusion seen invol ving the left hemithorax. A small freely flowing right-sided pleural effusion. Calcified pleural plaq ue involving the right hemithorax.. Axillae: Unremarkable. Bony Structures: Unremarkable. Miscellaneous: Subcutaneous air overlies the chest bilaterally.. CONCLUSION: 1. Extensive subcutaneous air involving the chest wall with a tiny left anterior pneumothorax. 2. 3 pulmonary nodules seen involving the right lung in this patient with underlying emphysematous c hange. The largest measures 15 mm within the right upper lobe. Consideration could be made to a 2-3 m onth follow-up CT of the thorax versus further assessment with PET/CT. 3. Coronary artery atherosclerotic calcifications. 4. Tiny bilateral pleural effusions. 5. Calcified pleural plaque without mass. This can be seen in asbestos exposure. Electronically signed by: River Lunsford MD 09/28/2018 5:36 AM EST
[2018-09-28 05:59] LABS: Alanine Aminotransferase 22 U/L (12-78); Albumin 2.1 g/dL (3.4-5.0); Anion Gap 3 meq/L (5-15); Aspartate Aminotransferase 15 U/L (15-37); Blood Urea Nitrogen 31 mg/dL (7-18); Calcium 8.3 mg/dL (8.5-10.1); Chloride 115 meq/L (98-107); Glomerular Filtration Rate Greater Than 89 mL/min (>89); Glucose,Random 122 mg/dL (74-106); Potassium 4.4 meq/L (3.5-5.1); Sodium 153 meq/L (136-145)
[2018-09-28 06:01] LABS: Alkaline Phosphatase 103 U/L (45-117); Total Protein 5.6 g/dL (6.4-8.2)
[2018-09-28 07:08] LABS: Lymphocytes 1 % (9-44); Monocytes 3 % (0-8)
[2018-09-28 07:09] LABS: Platelet Estimate Normal (Normal); Platelet Morphology Normal (Normal)
[2018-09-28] MEDS: Sod Chloride 0.9% Inj 1,000 ML IV.SIG SCH (09:40)
[2018-09-28] MEDS ORDERED: Vancomycin Consult Pharmacy 1 EACH OTHER PRN (10:15)
[2018-09-28] MEDS ORDERED: fentaNYL 10 mcg/mL Premix Drip 2,500 MCG/250 ML BAG IV.SIG PRN (10:20)
[2018-09-28] MEDS: Enoxaparin Inj 40 MG/0.4 ML Syringe SQ SCH (10:29)
[2018-09-28] MEDS: Sodium Chloride 0.9% 2 ML Flush BID IV.FLUSH SCH ×2 (10:29→20:42)
[2018-09-28] MEDS: Chlorhexidine 0.12% Oral Kit 15 ML UDC OROPHARYNG SCH ×2 (10:29→20:41)
[2018-09-28] MEDS: Hydrocortisone Sod Succinate 100 MG Vial IV.PUSH SCH ×2 (10:30→20:42)
[2018-09-28] MEDS: Famotidine 20 MG Tablet PO SCH ×2 (10:30→20:41)
[2018-09-28] MEDS: Senna/Docusate Sodium 8.6/50 MG Tablet PO SCH ×2 (10:31→20:42)
[2018-09-28] MEDS ORDERED: Vancomycin Inj 1,000 MG in Sodium Chlor 0.9% Inj 250 ML IV.SIG SCH (11:00)
[2018-09-28] MEDS: Piperacil/Tazo 4.5 GM Premix 4.5 GM/100 ML BAG IV.SIG SCH ×2 (12:15→17:33)
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
[2018-09-28] MEDS ORDERED: Vancomycin Inj 1,250 MG in Sodium Chlor 0.9% Inj 250 ML IV.SIG SCH (14:00)
[2018-09-28 14:33] VITALS: O2SAT 100
--- NOTE | 2018-09-28 14:49 | P.PNVS ---
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 He would be best served by endobronchial closure of the fistula by either 1 of the [employer] products or silver nitrate injection into the bronchial segments CT scan of the chest performed yesterday does not reveal empyema or collapse of the lung Lung is expanded and obviously stuck to the chest wall Will call [facility] and try to schedule the patient for transbronchial intervention by Dr. Blancas. Objective Vital Signs / I&O: Vital Signs 09/27/18 15:00 09/27/18 15:30 09/27/18 15:58 Temperature Pulse Rate 94 H 93 H Respiratory Rate 25 H 24 26 H Blood Pressure 138/79 129/58 L Pulse Oximetry 99 96 99 09/27/18 16:00 09/27/18 16:32 09/27/18 17:00 Temperature 98.6 F Pulse Rate 99 H 100 H 100 H Respiratory Rate 27 H 26 H 26 H Blood Pressure 115/70 142/71 H 152/88 H Pulse Oximetry 97 98 98 09/27/18 17:30 09/27/18 18:00 09/27/18 18:09 Temperature Pulse Rate 99 H 104 H 108 H Respiratory Rate 26 H 28 H 27 H Blood Pressure 130/60 131/87 Pulse Oximetry 99 99 09/27/18 18:30 09/27/18 19:00 09/27/18 19:26 Temperature Pulse Rate 110 H 107 H Respiratory Rate 21 28 H 27 H Blood Pressure 121/78 116/71 Pulse Oximetry 100 100 100 09/27/18 19:30 09/27/18 20:00 09/27/18 20:38 Temperature 98.7 F Pulse Rate 96 H 94 H 93 H Respiratory Rate 26 H 27 H 25 H Blood Pressure 113/53 L 114/53 L 137/60 Pulse Oximetry 100 99 98 09/27/18 21:00 09/27/18 21:30 09/27/18 22:00 Temperature Pulse Rate 95 H 109 H 118 H Respiratory Rate 25 H 25 H 25 H Blood Pressure 107/69 142/64 H 119/70 Pulse Oximetry 98 99 99 09/27/18 22:30 09/27/18 23:00 09/27/18 23:30 Temperature Pulse Rate 109 H 105 H 120 H Respiratory Rate 25 H 25 H 25 H Blood Pressure 109/55 L 107/64 101/64 Pulse Oximetry 97 95 100 09/28/18 00:00 09/28/18 00:01 09/28/18 00:30 Temperature 99.6 F Pulse Rate 117 H 118 H 119 H Respiratory Rate 24 25 H 25 H Blood Pressure 127/93 H 127/93 H 105/73 Pulse Oximetry 98 98 99 09/28/18 01:00 09/28/18 01:11 09/28/18 01:30 Temperature Pulse Rate 113 H 94 H Respiratory Rate 24 27 H 30 H Blood Pressure 107/52 L 100/53 L Pulse Oximetry 100 96 97 09/28/18 02:00 09/28/18 02:30 09/28/18 03:00 Temperature Pulse Rate 93 H 89 88 Respiratory Rate 31 H 31 H 29 H Blood Pressure 112/52 L 106/53 L 107/51 L Pulse Oximetry 98 99 99 09/28/18 03:30 09/28/18 03:47 09/28/18 04:00 Temperature 99.1 F Pulse Rate 87 117 H Respiratory Rate 26 H 26 H 26 H Blood Pressure 111/53 L 115/58 L Pulse Oximetry 99 96 98 09/28/18 04:15 09/28/18 04:32 09/28/18 05:00 Temperature Pulse Rate 111 H 97 H Respiratory Rate 41 H 24 Blood Pressure 147/67 H Pulse Oximetry 100 100 99 09/28/18 05:03 09/28/18 05:30 09/28/18 06:00 Temperature Pulse Rate 99 H 89 88 Respiratory Rate 0 L 8 L 5 L Blood Pressure 118/52 L 101/66 90/63 L Pulse Oximetry 98 98 98 09/28/18 06:51 09/28/18 06:53 09/28/18 06:54 Temperature Pulse Rate 87 87 93 H Respiratory Rate 23 18 31 H Blood Pressure 80/38 L 79/40 L 117/57 L Pulse Oximetry 99 98 97 09/28/18 07:00 09/28/18 07:30 09/28/18 07:40 Temperature Pulse Rate 87 88 88 Respiratory Rate 26 H 28 H 37 H Blood Pressure 105/53 L 115/50 L 109/74 Pulse Oximetry 99 98 98 09/28/18 07:47 09/28/18 07:58 09/28/18 08:00 Temperature 98.7 F Pulse Rate 90 89 89 Respiratory Rate 31 H 28 H 30 H Blood Pressure 118/58 L 122/53 L 130/64 Pulse Oximetry 98 98 98 09/28/18 08:30 09/28/18 09:00 09/28/18 09:30 Temperature Pulse Rate 88 88 88 Respiratory Rate 28 H 27 H 29 H Blood Pressure 109/56 L 102/55 L 95/42 L Pulse Oximetry 99 99 99 09/28/18 09:59 09/28/18 10:00 09/28/18 10:26 Temperature Pulse Rate 91 H 92 H 96 H Respiratory Rate 33 H 29 H 30 H Blood Pressure 104/45 L 124/58 L 127/76 Pulse Oximetry 99 99 97 09/28/18 10:30 09/28/18 11:00 09/28/18 11:30 Temperature Pulse Rate 98 H 93 H 90 Respiratory Rate 0 L 0 L 0 L Blood Pressure 129/68 105/68 108/47 L Pulse Oximetry 100 100 100 09/28/18 12:00 09/28/18 12:30 09/28/18 12:56 Temperature 98.3 F Pulse Rate 89 85 92 H Respiratory Rate 0 L 0 L 28 H Blood Pressure 113/56 L 110/49 L 124/49 L Pulse Oximetry 100 100 100 09/28/18 13:00 09/28/18 13:30 09/28/18 14:00 Temperature Pulse Rate 84 82 83 Respiratory Rate 32 H 33 H 28 H Blood Pressure 135/61 112/51 L 105/52 L Pulse Oximetry 100 100 100 09/28/18 14:29 09/28/18 14:30 Temperature Pulse Rate 81 Respiratory Rate 33 H Blood Pressure 110/42 L Pulse Oximetry 100 Intake & Output 09/27/18 09/28/18 09/28/18 18:59 06:59 18:59 Intake Total 100 / 100 100 / 100 100 / 100 Output Total 850 / 850 380 / 380 Balance -750 / -750 -280 / -280 100 / 100 Weight 87.2 kg Intake: IV 100 / 100 100 / 100 100 / 100 Versed Inj 100 mg In 100 ml @ 5 100 / 100 100 / 100 MG/HR 5 mls/hr IV.CONT TITRATE PRN Rx#:[id number] Zosyn 4.5 GM Premix 4.5 gm In 100 / 100 100 ml @ 200 mls/hr IV.SIG Q6H AUDREY Rx#:[id number] Output: Stool 300 / 300 Urine Amount (Catheter) 550 / 550 380 / 380 Indwelling Urethral Catheter 550 / 550 380 / 380 Other: Date of Last Bowel Movement 09/27/18 09/27/18 Laboratory Results - last 24 hr 09/28/18 09/28/18 09/28/18 05:11 05:11 05:28 WBC 14.6 H RBC 2.75 L Hgb 8.4 L Hct 25.0 L MCV 91.0 MCH 30.5 MCHC 33.5 RDW 15.2 Plt Count 304 MPV 7.9 Prelim Diff (Auto) Slide review pending Neut % (Auto) 89.2 H Lymph % (Auto) 2.0 L [place] % (Auto) 8.7 H Eos % (Auto) 0.0 Baso % (Auto) 0.1 Neut # (Auto) 13.0 H Lymph # (Auto) 0.3 L [place] # (Auto) 1.3 H Eos # (Auto) 0.0 Baso # (Auto) 0.0 WBC Differential Manual diff final Seg Neuts % (Manual) 86 H Band Neuts % (Manual) 10 H Lymphocytes % (Manual) 1 L Monocytes % (Manual) 3 Abs Neuts (Manual) 14.0 H Differential Comment . Platelet Estimate Normal Platelet Morphology Normal Puncture Site Right radial Patient Temperature 98.6 O2 Saturation 96 ABG pH 7.47 H ABG pCO2 46 H ABG pO2 113 ABG HCO3 33 H ABG O2 Content 11.8 L ABG Base Excess 8.7 H ABG Methemoglobin 1.2 Shon Test Present Hemoglobin 8.6 L Carboxyhemoglobin 1.3 O2 Delivery Device Ventilator Vent Setting Pc/ac Inspired O2 35 Critical Value No Sodium 153 H Potassium 4.4 Chloride 115 H Carbon Dioxide 35.0 H Anion Gap 3 L BUN 31 H Creatinine 0.81 Estimated GFR Greater than 89 Random Glucose 122 H Calcium 8.3 L Total Bilirubin 0.5 AST 15 ALT 22 Alkaline Phosphatase 103 Total Protein 5.6 L Albumin 2.1 L Impressions Chest X-Ray 09/26/18 20:36 CONCLUSION: 1. Stable ETT and NGT. 2. No significant pneumothorax with stable subcutaneous emphysema. Chest X-Ray 09/27/18 06:00 CONCLUSION: No pneumothorax. Chest X-Ray 09/27/18 18:15 CONCLUSION: 1. No significant change mild patchy parenchymal consolidation of both lungs. 2. No pneumothorax. 3. Decreasing chest wall emphysema. Chest CT 09/28/18 00:00 CONCLUSION: 1. Extensive subcutaneous air involving the chest wall with a tiny left anterior pneumothorax. 2. 3 pulmonary nodules seen involving the right lung in this patient with underlying emphysematous change. The largest measures 15 mm within the right upper lobe. Consideration could be made to a 2-3 month follow-up CT of the thorax versus further assessment with PET/CT. 3. Coronary artery atherosclerotic calcifications. 4. Tiny bilateral pleural effusions. 5. Calcified pleural plaque without mass. This can be seen in asbestos exposure. Chest X-Ray 09/28/18 06:00 CONCLUSION: Stable small areas of parenchymal consolidation involving both upper lobes. Subcutaneous air without discernible pneumothorax. 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 I repeated the left upper extreme duplex. It was very limited due to extensive subcutaneous emphysema. We will hold off anticoagulation since the diagnosis is questionable and not confirmed, patient without signs and symptoms of venous occlusion, and the low risk of pulmonary embolism with upper extremity DVT. We will repeat the left upper extremity duplex when the subcutaneous emphysema resolves. Omer Carrasquillo MD [facility] [phone]
[2018-09-28 21:37] VITALS: TEMP 97.9
[2018-09-28 22:00] VITALS: BP 116/69
[2018-09-28 22:03] VITALS: PULSE 67; RESP 27
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
[2018-09-30] MEDS ORDERED: Pharmacy Ordered Lab Info OTHER ONE (01:45)
== END 2018-09-28 23:45 | disposition short-term general hospital (02) ==
LOC: NEPI 13:51 → N03 14:40
PROVIDERS: ADMIT Surgery Trauma Surgery; ATTEND Surgery Trauma Surgery

== ENCOUNTER 2018-10-04 17:42 | Inpatient (IN) ==
[2018-10-04] MEDS: Dexmedetomidine Inj 200 MCG in Sodium Chlor 0.9% Inj 48 ML IV.CONT PRN (22:35)
[2018-10-04] MEDS: Sod Chloride 0.9% Inj 1,000 ML IV.SIG SCH (22:35)
[2018-10-05 00:42] LABS: ABG Base Excess 8.8 mmol/L (-2-2); ABG PCO2 52 mmHg (38-42); ABG PO2 203 mmHg (61-120)
[2018-10-05] MEDS: Dexmedetomidine Inj 200 MCG in Sodium Chlor 0.9% Inj 48 ML IV.CONT PRN ×3 (00:56→13:13)
[2018-10-05 06:37] LABS: ABG Base Excess 8.9 mmol/L (-2-2); ABG PCO2 58 mmHg (38-42); ABG PO2 156 mmHg (61-120)
[2018-10-05] MEDS: Pantoprazole Inj 40 MG Vial IV.PUSH SCH (09:08)
[2018-10-05] MEDS: Chlorhexidine 0.12% Oral Kit 15 ML UDC OROPHARYNG SCH ×2 (09:08→21:06)
[2018-10-05] MEDS: QUEtiapine 100 MG Tablet PO SCH ×2 (09:09→21:06)
--- NOTE | 2018-10-05 10:00 | XR ---
EXAM DATE: 10/05/2018 9:37 AM EST AGE/SEX: 68 years / Male INDICATIONS: COPD. CLINICAL DATA: This is the patient's initial encounter. Patient reports that signs and symptoms have been present for 2 weeks and indicates a pain score of Nonresponsive. MEDICAL/SURGICAL HISTORY: . Chronic obstructive pulmonary disease. . Left side chest tubes. COMPARISON: C, CHEST 1V SINGLE AP, 09/28/2018. . FINDINGS: 2 AP erect portable views of the chest were obtained and demonstrate interval extubation and placemen t of tracheostomy tube. The nasogastric tube remains in place and is seen coursing through the esopha aelk into the stomach. Mild hazy perihilar and bibasilar opacities remain with no focal consolidation. There is no effusion. The heart size remains within normal limits. Atherosclerotic changes are prese nt in the aorta. There are multiple overlying electrocardiogram leads. Previously noted subcutaneous emphysema has resolved. There is no pneumothorax. The left subclavian central venous line has been re moved. CONCLUSION: 1. Interval extubation and placement of tracheostomy tube. 2. Hazy opacity in both lungs with no focal consolidation. 3. Interval removal of previously noted left subclavian central venous catheter. 4. Interval resolution of subcutaneous emphysema with no pneumothorax. Electronically signed by: Omer Lucio MD 10/05/2018 9:58 AM EST
--- NOTE | 2018-10-05 10:51 | P.PNCC ---
Subjective 24 Hour Review/Hospital Course: 10/05/2018 Neurologically patient is awake alert but disoriented sometimes follows commands sometimes does not Quite agitated requiring neuro behavioral modification Precedex Haldol Ativan as needed Hemodynamically patient is stable Bilateral breath sounds patient is tracheostomy on assist control ventilation ABGs consistent with hypercapnia and compensated respiratory acidemia. Patient has severe COPD and is CO2 retainer so this is probably where he normally would be left chest wound measuring about 3 inches in diameter going down to the rib cage will place wound VAC Will start on CPAP trials Abdomen soft will start enteral feeds Renal function preserved laboratory studies pending Patient will be transferred to LTAC for further care Objective Vital Signs / I&O: Vital Signs 10/04/18 20:29 10/04/18 20:30 10/04/18 21:00 Temperature 98.6 F Pulse Rate 90 84 Respiratory Rate 20 19 18 Blood Pressure 151/104 H 141/63 H Pulse Oximetry 96 99 98 10/04/18 22:00 10/04/18 23:00 10/04/18 23:41 Temperature Pulse Rate 102 H 84 Respiratory Rate 25 H 14 15 Blood Pressure 155/66 H 120/60 Pulse Oximetry 97 97 96 10/04/18 23:46 10/05/18 00:11 10/05/18 00:30 Temperature 99.0 F 98.8 F Pulse Rate 87 71 76 Respiratory Rate 16 14 15 Blood Pressure 162/62 H Pulse Oximetry 96 96 10/05/18 01:00 10/05/18 01:30 10/05/18 02:00 Temperature 98.8 F 98.8 F 99.0 F Pulse Rate 70 69 68 Respiratory Rate 15 14 14 Blood Pressure 132/62 115/66 Pulse Oximetry 97 94 L 100 10/05/18 02:30 10/05/18 03:00 10/05/18 03:30 Temperature 99.0 F 99.0 F 98.8 F Pulse Rate 66 65 112 H Respiratory Rate 14 14 37 H Blood Pressure 107/53 L Pulse Oximetry 100 100 99 10/05/18 03:40 10/05/18 04:00 10/05/18 04:08 Temperature 98.8 F Pulse Rate 101 H 79 Respiratory Rate 21 14 15 Blood Pressure 102/56 L Pulse Oximetry 99 98 10/05/18 04:30 10/05/18 05:00 10/05/18 05:30 Temperature 98.6 F 98.8 F 98.8 F Pulse Rate 89 81 78 Respiratory Rate 16 14 14 Blood Pressure 107/46 L Pulse Oximetry 97 97 96 10/05/18 06:00 10/05/18 07:00 10/05/18 07:57 Temperature 98.8 F Pulse Rate 72 81 Respiratory Rate 14 14 14 Blood Pressure 155/70 H Pulse Oximetry 95 97 Intake & Output 10/04/18 10/05/18 10/05/18 18:59 06:59 18:59 Intake Total 220 / 220 Output Total 850 / 850 Balance -630 / -630 Weight 80.8 kg Intake: IV 100 / 100 Precedex Inj 200 MCG In NS Inj 100 / 100 48 ML @ 0.2 MCG/KG/HR 4.04 mls/ hr IV.CONT TITRATE PRN Rx#: [id number] Tube Irrigant 120 / 120 Output: Urine Amount (Catheter) 700 / 700 Indwelling Temp Sensing 700 / 700 Catheter Gastric Drainage 150 / 150 Left Nare Nasogastric Tube 150 / 150 Other: Weight On Admission 80.8 kg Imaging: Impressions Chest X-Ray 10/05/18 07:00 CONCLUSION: 1. Interval extubation and placement of tracheostomy tube. 2. Hazy opacity in both lungs with no focal consolidation. 3. Interval removal of previously noted left subclavian central venous catheter. 4. Interval resolution of subcutaneous emphysema with no pneumothorax. Disinhibition Score: 17.50 Aggression Score: 14.00 Lability Score: 14.00 Agitated Behavior Total Score: 16 Assessment and Plan Attestation: Critical care 34-minutes
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
[2018-10-05 11:02] LABS: Hematocrit 30.5 % (39.0-51.0); Hemoglobin 9.9 gm/dL (13.0-17.0); Mean Corpuscular HGB Conc 32.4 % (32.0-36.0); Mean Corpuscular Hemoglobin 30.3 pg (27.0-34.0); Mean Corpuscular Volume 93.4 fL (80.0-100.0); Mean Platelet Volume 8.3 fL (7.0-11.0); Platelet Count 354 th/mm3 (150-450); Red Blood Count 3.27 mil/mm3 (4.50-5.90); Red Cell Distribution Width 15.1 % (11.6-17.2); White Blood Count 17.9 th/mm3 (4.0-11.0)
[2018-10-05 11:27] LABS: Anion Gap 3 meq/L (5-15); Blood Urea Nitrogen 39 mg/dL (7-18); Calcium 8.2 mg/dL (8.5-10.1); Carbon Dioxide 33.9 meq/L (21.0-32.0); Chloride 107 meq/L (98-107); Glomerular Filtration Rate Greater Than 89 mL/min (>89); Glucose,Random 74 mg/dL (74-106); Potassium 3.8 meq/L (3.5-5.1); Sodium 144 meq/L (136-145)
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
--- NOTE | 2018-10-05 11:59 | US ---
EXAM DATE: 10/05/2018 11:53 AM EST AGE/SEX: 68 years / Male INDICATIONS: Bilateral leg pain and swelling. CLINICAL DATA: This is the patient's initial encounter. Patient reports that signs and symptoms have been present for 1 day and indicates a pain score of 2/10. MEDICAL/SURGICAL HISTORY: . Bilateral leg swelling. . Chest tube. COMPARISON: No prior exams available for comparison. TECHNIQUE: Venous ultrasound of both lower extremities was performed from the inguinal ligament to t he proximal calf. Real-time, color Doppler and spectral tracing, compression and augmentation techni ques were used. FINDINGS: Right Leg: Normal compression of the deep venous system from the inguinal region to the proximal kim f. No echogenic clot is seen. Normal response of the venous system to augmentation and respiration. Left Leg: Normal compression of the deep venous system from the inguinal region to the proximal calf . No echogenic clot is seen. Normal response of the venous system to augmentation and respiration. Other: Edema is present bilaterally. CONCLUSION: 1. Negative examination with no evidence of deep venous thrombosis. Electronically signed by: Omer Lucio MD 10/05/2018 11:57 AM EST
[2018-10-05] MEDS: Sod Chloride 0.9% Inj 1,000 ML IV.SIG SCH (12:42)
[2018-10-05] MEDS: predniSONE 20 MG Tablet PO SCH (12:46)
[2018-10-05] MEDS: Oral Hygiene Kit OROPHARYNG SCH ×2 (12:49→16:55)
[2018-10-05] MEDS: Heparin - SQ 10,000 UNITS/ML Vial SQ SCH ×2 (13:09→21:06)
[2018-10-05] MEDS: Artificial Tears Opth Drops 15 ML Bottle EACH EYE SCH ×3 (13:10→21:06)
--- NOTE | 2018-10-05 13:42 | P.DIET ---
Nutritional Evaluation Type of nutrition evaluation: initial Nutrition consult regarding: Tube Feeding Screening comments: Returned from [facility] Objective - Diagnosis pneumothorax, r/o - Objective % IBW: 103 (IBW = 172#) Body Weight Used for Calculations: Actual (80.8 kg) Energy Needs - Lower Range (kCal/kg): 28 Energy Needs - Upper Range (kCal/kg): 32 Lower Limit kCal/kg (kCals): 2,262 Upper Limit kCal/kg (kCals): 2,586 Lower Limit Protein Factor (Grams per Kg): 1.2 Upper Limit Protein Factor (Grams per Kg): 1.6 Lower Protein Needs (Protein): 97 Upper Protein Needs (Protein): 129 Dietitian Reviewed in Medical Record: Curent medications, Intake & Output, Labs , Medical history, Tube feeding, Wound/DTI Diet Order: NPO Objective Comments: [facility] [place] Assessment Assessment: Pt returned form [facility] with a packed wound of the L chest. Pt is dependent on TF and order is for Vital 1.5 @ 55 mls/hr. To better meet needs, recommend increase rate to 65 mls/hr to provide 240 kcals, 105 gms prtoein and 1192 mls of free water. Recommendations: Vital 1.5 @ 65 mls/hr goal Dietitian to Monitor: Lab values, Intake & Output, Tube feeding tolerance, Weight change, Medical course
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
[2018-10-06] MEDS: Sod Chloride 0.9% Inj 1,000 ML IV.SIG SCH ×2 (02:36→12:52)
[2018-10-06] MEDS: Oral Hygiene Kit OROPHARYNG SCH ×4 (02:37→16:51)
[2018-10-06] MEDS: Artificial Tears Opth Drops 15 ML Bottle EACH EYE SCH ×6 (02:37→22:30)
[2018-10-06] MEDS ORDERED: Chlorhexidine Gluconate 2% 1 Pack (2 Cloths) TOPICAL PRN (04:00)
[2018-10-06] MEDS: Heparin - SQ 10,000 UNITS/ML Vial SQ SCH ×3 (05:35→22:26)
[2018-10-06] MEDS: Chlorhexidine Gluconate 2% 1 Pack (2 Cloths) TOPICAL SCH (05:36)
[2018-10-06 05:44] LABS: ABG Base Excess 8.9 mmol/L (-2-2); ABG PCO2 56 mmHg (38-42); ABG PO2 96 mmHg (61-120)
[2018-10-06 06:38] LABS: Baso % (Auto) 0.2 % (0.0-2.0); Eos % (Auto) 0.3 % (0.0-4.0); Hematocrit 28.6 % (39.0-51.0); Hemoglobin 9.5 gm/dL (13.0-17.0); Lymph # (Auto) 0.6 th/mm3 (1.0-4.8); Lymph % (Auto) 3.5 % (9.0-44.0); Mean Corpuscular HGB Conc 33.3 % (32.0-36.0); Mean Corpuscular Volume 90.1 fL (80.0-100.0); Mean Platelet Volume 8.5 fL (7.0-11.0); Mono # (Auto) 1.3 th/mm3 (0.0-0.9); Mono % (Auto) 7.4 % (0.0-8.0); Neut # (Auto) 15.7 th/mm3 (1.8-7.7); Neut % (Auto) 88.6 % (16.0-70.0); Platelet Count 382 th/mm3 (150-450); Red Blood Count 3.17 mil/mm3 (4.50-5.90); Red Cell Distribution Width 15.1 % (11.6-17.2); White Blood Count 17.7 th/mm3 (4.0-11.0)
[2018-10-06 06:58] LABS: Anion Gap 5 meq/L (5-15); Blood Urea Nitrogen 40 mg/dL (7-18); Carbon Dioxide 35.3 meq/L (21.0-32.0); Chloride 106 meq/L (98-107); Glomerular Filtration Rate Greater Than 89 mL/min (>89); Glucose,Random 97 mg/dL (74-106); Potassium 3.8 meq/L (3.5-5.1); Sodium 146 meq/L (136-145)
[2018-10-06 07:53] LABS: Lymphocytes 6 % (9-44); Monocytes 5 % (0-8); Myelocytes 3 % (0-0); Platelet Estimate Normal (Normal); Platelet Morphology Normal (Normal)
[2018-10-06] MEDS: Pantoprazole Inj 40 MG Vial IV.PUSH SCH (08:50)
[2018-10-06] MEDS: predniSONE 20 MG Tablet PO SCH (08:51)
[2018-10-06] MEDS: QUEtiapine 100 MG Tablet PO SCH ×2 (08:51→20:22)
[2018-10-06] MEDS: Chlorhexidine 0.12% Oral Kit 15 ML UDC OROPHARYNG SCH ×2 (08:51→20:22)
[2018-10-06] MEDS: Haloperidol Inj 5 MG/ML Ampul IM PRN ×2 (13:11→22:57)
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
[2018-10-06] MEDS: Senna/Docusate Sodium 8.6/50 MG Tablet PO SCH (20:22)
[2018-10-07] MEDS: Sod Chloride 0.9% Inj 1,000 ML IV.SIG SCH (02:21)
[2018-10-07] MEDS: Oral Hygiene Kit OROPHARYNG SCH ×4 (02:24→17:49)
[2018-10-07] MEDS: Artificial Tears Opth Drops 15 ML Bottle EACH EYE SCH ×6 (02:24→20:35)
[2018-10-07] MEDS: Chlorhexidine Gluconate 2% 1 Pack (2 Cloths) TOPICAL SCH (04:53)
--- NOTE | 2018-10-07 05:10 | XR ---
EXAM DATE: 10/07/2018 5:04 AM EST AGE/SEX: 68 years / Male INDICATIONS: Shortness of breath. CLINICAL DATA: This is the patient's subsequent encounter. Patient reports that signs and symptoms h ave been present for 2 weeks and indicates a pain score of Nonresponsive. MEDICAL/SURGICAL HISTORY: Chronic obstructive pulmonary disease. . Left chest tubes COMPARISON: [facility] [place], CHEST 1V SINGLE AP, 10/05/2018. . FINDINGS: 2 AP views the chest. Feeding tube and tracheostomy tube remain in place. Mild fatty bilateral pulmon casey opacity. No significant interval change. No evidence of pleural effusion or pneumothorax. Cardiom ediastinal silhouette unchanged. CONCLUSION: No significant interval change with persistent patchy bilateral pulmonary opacity. Electronically signed by: Jori Xavier MD 10/07/2018 5:09 AM EST
[2018-10-07] MEDS: Heparin - SQ 10,000 UNITS/ML Vial SQ SCH ×3 (06:35→22:18)
[2018-10-07 07:23] LABS: Calcium 7.6 mg/dL (8.5-10.1); Carbon Dioxide 31.7 meq/L (21.0-32.0); Potassium 4.1 meq/L (3.5-5.1)
[2018-10-07 07:31] LABS: Baso % (Auto) 0.2 % (0.0-2.0); Eos % (Auto) 0.4 % (0.0-4.0); Hematocrit 25.7 % (39.0-51.0); Hemoglobin 8.1 gm/dL (13.0-17.0); Lymph # (Auto) 0.7 th/mm3 (1.0-4.8); Lymph % (Auto) 5.8 % (9.0-44.0); Mean Corpuscular HGB Conc 31.7 % (32.0-36.0); Mean Corpuscular Hemoglobin 29.5 pg (27.0-34.0); Mean Corpuscular Volume 93.2 fL (80.0-100.0); Mean Platelet Volume 8.8 fL (7.0-11.0); Mono # (Auto) 1.1 th/mm3 (0.0-0.9); Mono % (Auto) 9.5 % (0.0-8.0); Neut % (Auto) 84.1 % (16.0-70.0); Platelet Count 268 th/mm3 (150-450); Red Blood Count 2.75 mil/mm3 (4.50-5.90); Red Cell Distribution Width 15.4 % (11.6-17.2); White Blood Count 11.9 th/mm3 (4.0-11.0)
--- NOTE | 2018-10-07 08:12 | P.PNNPSY ---
- Behavior Mild: Impulsive/agitated - Progress Notes/Response to Treatment Contents of Sessions: Adjustment, Level of consciousness Time with Patient: 30 minutes Premorbid Psychological Status: Premorbid Cognitive, Emotional and Behavioral Status: Unstable. The patient has high school years of education and a sporadic work history prior to this injury. The patient has presumed prior psychiatric difficulties, as described above. Substance abuse history is significant for ETOH. Behavioral Reactions of Patient and Family/Support System: Tenuous. The patients family is experiencing ongoing issues of adjustment given the nature of the injury, and this aspect of recovery will require ongoing monitoring. Emotional/Behavioral Status of Patient and Family/Support System: Tenuous. Pertinent issues, if appropriate to this patients clinical care, are described in detail above. Maximizing Acute Care Outcome: It is recommended that the patient be monitored for emergent behavioral impulsivity as the medical condition evolves. At this point in the recovery process, the patient does not have cognitive capacity as the patient is unable to understand a situation and its likely consequences, nor is the patient able to manipulate information rationally. Cognitive capacity will be assessed throughout the recovery process. Anticipated Problems: Ongoing areas of concern will include behavioral impulsivity, lack of insight and judgment, which is expected to improve with time and treatment. Treatment Plan: This clinician will continue to follow with you throughout the course of this patients critical care treatment, and I will be available to meet with the patients family/support system to facilitate their understanding and the ongoing care of their family member. The goals of neuropsychological intervention shall be both educational and supportive to the family/support system as is deemed clinically appropriate. [place] COG Scale: Level V Disinhibition Score: 19.25 Aggression Score: 14.00 Lability Score: 14.00 Agitated Behavior Total Score: 17 Impression: 68 year old man with multiple medical challenges resulting in major neurocognitive disorder. Progress Note Narrative: Day 3 of ISC stay. The patient has been intermittently agitated at times. ABS was 17 (19.3,14,14), and it is noted that he received PRN Haldol yesterday at 2257. He is also managed on Seroquel 100 BID. He is improving Rancho IV, possibly V at this point. I will follow. - Diagnosis (1) Major neurocognitive disorder due to multiple etiologies Status: Acute
[2018-10-07 08:32] LABS: Lymphocytes 5 % (9-44); Metamyelocytes 1 % (0-1); Monocytes 8 % (0-8); Myelocytes 1 % (0-0); Platelet Estimate Normal (Normal); Platelet Morphology Normal (Normal)
[2018-10-07] MEDS: Chlorhexidine 0.12% Oral Kit 15 ML UDC OROPHARYNG SCH ×2 (09:21→20:36)
[2018-10-07] MEDS: Pantoprazole Inj 40 MG Vial IV.PUSH SCH (09:22)
[2018-10-07] MEDS: Senna/Docusate Sodium 8.6/50 MG Tablet PO SCH ×2 (09:22→20:34)
[2018-10-07] MEDS: predniSONE 20 MG Tablet PO SCH (09:22)
[2018-10-07] MEDS: QUEtiapine 100 MG Tablet PO SCH ×2 (09:22→20:34)
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
[2018-10-07] MEDS: Haloperidol Inj 5 MG/ML Ampul IM PRN (22:29)
[2018-10-08] MEDS: Artificial Tears Opth Drops 15 ML Bottle EACH EYE SCH ×6 (00:12→20:15)
[2018-10-08] MEDS: Oral Hygiene Kit OROPHARYNG SCH ×4 (00:13→15:22)
[2018-10-08] MEDS: Haloperidol Inj 5 MG/ML Ampul IM PRN ×5 (03:26→22:26)
[2018-10-08] MEDS: Chlorhexidine Gluconate 2% 1 Pack (2 Cloths) TOPICAL SCH (03:59)
[2018-10-08] MEDS: fentaNYL Citrate Inj 100 MCG/2 ML Ampul IV.PUSH PRN ×2 (04:02→07:40)
[2018-10-08 04:20] LABS: Baso # (Auto) 0.1 th/mm3 (0.0-0.2); Baso % (Auto) 0.5 % (0.0-2.0); Eos # (Auto) 0.1 th/mm3 (0.0-0.4); Eos % (Auto) 0.3 % (0.0-4.0); Hematocrit 29.7 % (39.0-51.0); Hemoglobin 9.8 gm/dL (13.0-17.0); Lymph # (Auto) 1.1 th/mm3 (1.0-4.8); Lymph % (Auto) 5.9 % (9.0-44.0); Mean Platelet Volume 8.7 fL (7.0-11.0); Mono # (Auto) 1.7 th/mm3 (0.0-0.9); Mono % (Auto) 9.5 % (0.0-8.0); Neut # (Auto) 15.2 th/mm3 (1.8-7.7); Neut % (Auto) 83.8 % (16.0-70.0); Platelet Count 365 th/mm3 (150-450); Red Blood Count 3.27 mil/mm3 (4.50-5.90); Red Cell Distribution Width 15.7 % (11.6-17.2); White Blood Count 18.1 th/mm3 (4.0-11.0)
[2018-10-08 04:40] LABS: Alanine Aminotransferase 26 U/L (12-78); Albumin 2.5 g/dL (3.4-5.0); Anion Gap 3 meq/L (5-15); Aspartate Aminotransferase 21 U/L (15-37); Blood Urea Nitrogen 51 mg/dL (7-18); Calcium 7.9 mg/dL (8.5-10.1); Carbon Dioxide 33.6 meq/L (21.0-32.0); Chloride 109 meq/L (98-107); Glomerular Filtration Rate 80 mL/min (>89); Glucose,Random 115 mg/dL (74-106); Potassium 4.4 meq/L (3.5-5.1); Sodium 146 meq/L (136-145)
[2018-10-08 04:42] LABS: Alkaline Phosphatase 174 U/L (45-117); Total Protein 7.5 g/dL (6.4-8.2)
[2018-10-08] MEDS: Heparin - SQ 10,000 UNITS/ML Vial SQ SCH ×3 (05:10→22:24)
[2018-10-08 06:58] LABS: Lymphocytes 6 % (9-44); Metamyelocytes 1 % (0-1); Monocytes 7 % (0-8); Platelet Estimate Normal (Normal); Platelet Morphology Normal (Normal); RBC Morphology Normal (Normal)
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
[2018-10-08] MEDS: predniSONE 20 MG Tablet PO SCH (08:26)
[2018-10-08] MEDS: QUEtiapine 100 MG Tablet PO SCH ×2 (08:26→20:16)
[2018-10-08] MEDS: Senna/Docusate Sodium 8.6/50 MG Tablet PO SCH ×2 (08:26→20:15)
[2018-10-08] MEDS: Pantoprazole Inj 40 MG Vial IV.PUSH SCH (08:27)
[2018-10-08] MEDS: Chlorhexidine 0.12% Oral Kit 15 ML UDC OROPHARYNG SCH ×2 (08:27→20:15)
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
[2018-10-09] MEDS: Artificial Tears Opth Drops 15 ML Bottle EACH EYE SCH ×7 (00:37→23:13)
[2018-10-09] MEDS: Oral Hygiene Kit OROPHARYNG SCH ×5 (00:37→23:13)
[2018-10-09] MEDS: Haloperidol Inj 5 MG/ML Ampul IM PRN ×4 (02:31→15:35)
[2018-10-09] MEDS: Chlorhexidine Gluconate 2% 1 Pack (2 Cloths) TOPICAL SCH (03:52)
[2018-10-09] MEDS: Heparin - SQ 10,000 UNITS/ML Vial SQ SCH ×3 (05:13→21:12)
--- NOTE | 2018-10-09 05:20 | XR ---
EXAM DATE: 10/09/2018 5:13 AM EST AGE/SEX: 68 years / Male INDICATIONS: Respiratory disease. CLINICAL DATA: This is the patient's subsequent encounter. Patient reports that signs and symptoms h ave been present for 2 weeks and indicates a pain score of Nonresponsive. MEDICAL/SURGICAL HISTORY: . Chronic obstructive pulmonary disease. . Left chest tubes COMPARISON: [facility] [place] CHEST 1V SINGLE AP, 10/07/2018. . FINDINGS: There is tracheostomy tube in place. The heart size is normal. The lungs appear hyperinflated. There is increased interstitial markings seen at the bases. There is some blunting of the right costophreni c angle. CONCLUSION: Hyperinflated lungs likely from COPD. Interstitial disease at the bases. Minimal blunting of the right costophrenic angle which may represent small effusion. Electronically signed by: Solo Starkey MD Board Certified Radiologist 10/09/2018 5:19 AM EST
[2018-10-09 05:47] LABS: Baso % (Auto) 0.2 % (0.0-2.0); Eos # (Auto) 0.1 th/mm3 (0.0-0.4); Eos % (Auto) 0.5 % (0.0-4.0); Hematocrit 24.1 % (39.0-51.0); Lymph # (Auto) 0.5 th/mm3 (1.0-4.8); Lymph % (Auto) 3.4 % (9.0-44.0); Mean Corpuscular HGB Conc 33.1 % (32.0-36.0); Mean Corpuscular Hemoglobin 30.2 pg (27.0-34.0); Mean Corpuscular Volume 91.2 fL (80.0-100.0); Mean Platelet Volume 8.9 fL (7.0-11.0); Mono # (Auto) 1.1 th/mm3 (0.0-0.9); Mono % (Auto) 7.1 % (0.0-8.0); Neut # (Auto) 13.2 th/mm3 (1.8-7.7); Neut % (Auto) 88.8 % (16.0-70.0); Platelet Count 278 th/mm3 (150-450); Red Blood Count 2.65 mil/mm3 (4.50-5.90); Red Cell Distribution Width 15.3 % (11.6-17.2); White Blood Count 14.9 th/mm3 (4.0-11.0)
[2018-10-09 06:08] LABS: Alanine Aminotransferase 22 U/L (12-78); Albumin 2.1 g/dL (3.4-5.0); Anion Gap 4 meq/L (5-15); Aspartate Aminotransferase 20 U/L (15-37); Blood Urea Nitrogen 56 mg/dL (7-18); Calcium 7.5 mg/dL (8.5-10.1); Carbon Dioxide 32.6 meq/L (21.0-32.0); Chloride 109 meq/L (98-107); Glomerular Filtration Rate 78 mL/min (>89); Glucose,Random 126 mg/dL (74-106); Potassium 4.6 meq/L (3.5-5.1); Sodium 146 meq/L (136-145)
[2018-10-09 06:10] LABS: Alkaline Phosphatase 154 U/L (45-117); Total Protein 6.6 g/dL (6.4-8.2)
[2018-10-09] MEDS: predniSONE 20 MG Tablet PO SCH (08:14)
[2018-10-09] MEDS: QUEtiapine 100 MG Tablet PO SCH ×4 (08:15→20:06)
[2018-10-09] MEDS: Senna/Docusate Sodium 8.6/50 MG Tablet PO SCH ×2 (08:15→20:08)
[2018-10-09] MEDS: Chlorhexidine 0.12% Oral Kit 15 ML UDC OROPHARYNG SCH ×2 (08:15→20:07)
[2018-10-09] MEDS: Pantoprazole Inj 40 MG Vial IV.PUSH SCH (08:15)
[2018-10-09] MEDS ORDERED: Sodium Chloride 0.9% 2 ML Flush PRN IV.FLUSH (10:42)
[2018-10-09] MEDS ORDERED: Morphine Sulfate Inj 2 MG/ML Vial IV.PUSH ONE (10:45)
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
[2018-10-09] MEDS: Sodium Chloride 0.9% 2 ML Flush BID IV.FLUSH SCH (20:08)
[2018-10-10] MEDS: Haloperidol Inj 5 MG/ML Ampul IM PRN ×2 (03:04→07:08)
[2018-10-10] MEDS: Oral Hygiene Kit OROPHARYNG SCH ×3 (03:14→16:08)
[2018-10-10] MEDS: Chlorhexidine Gluconate 2% 1 Pack (2 Cloths) TOPICAL SCH (03:14)
[2018-10-10] MEDS: Artificial Tears Opth Drops 15 ML Bottle EACH EYE SCH ×5 (03:14→22:23)
[2018-10-10] MEDS: Heparin - SQ 10,000 UNITS/ML Vial SQ SCH ×3 (05:56→21:48)
[2018-10-10 06:07] LABS: Baso # (Auto) 0.1 th/mm3 (0.0-0.2); Baso % (Auto) 0.4 % (0.0-2.0); Eos # (Auto) 0.1 th/mm3 (0.0-0.4); Eos % (Auto) 0.5 % (0.0-4.0); Hematocrit 25.7 % (39.0-51.0); Hemoglobin 8.2 gm/dL (13.0-17.0); Lymph # (Auto) 0.4 th/mm3 (1.0-4.8); Lymph % (Auto) 1.8 % (9.0-44.0); Mean Corpuscular HGB Conc 31.8 % (32.0-36.0); Mean Corpuscular Hemoglobin 29.7 pg (27.0-34.0); Mean Corpuscular Volume 93.4 fL (80.0-100.0); Mean Platelet Volume 8.6 fL (7.0-11.0); Mono # (Auto) 1.6 th/mm3 (0.0-0.9); Mono % (Auto) 7.1 % (0.0-8.0); Neut # (Auto) 20.6 th/mm3 (1.8-7.7); Neut % (Auto) 90.2 % (16.0-70.0); Platelet Count 279 th/mm3 (150-450); Red Blood Count 2.75 mil/mm3 (4.50-5.90); Red Cell Distribution Width 15.6 % (11.6-17.2); White Blood Count 22.8 th/mm3 (4.0-11.0)
[2018-10-10 06:17] LABS: Albumin 2.3 g/dL (3.4-5.0); Anion Gap 6 meq/L (5-15); Aspartate Aminotransferase 19 U/L (15-37); Blood Urea Nitrogen 58 mg/dL (7-18); Carbon Dioxide 30.3 meq/L (21.0-32.0); Chloride 109 meq/L (98-107); Glomerular Filtration Rate 72 mL/min (>89); Glucose,Random 147 mg/dL (74-106); Potassium 5.1 meq/L (3.5-5.1); Sodium 145 meq/L (136-145)
[2018-10-10 06:21] LABS: Alanine Aminotransferase 24 U/L (12-78); Alkaline Phosphatase 178 U/L (45-117); Total Protein 7.1 g/dL (6.4-8.2)
[2018-10-10] MEDS: Chlorhexidine 0.12% Oral Kit 15 ML UDC OROPHARYNG SCH ×2 (07:55→21:49)
[2018-10-10] MEDS: Dexmedetomidine Inj 200 MCG in Sodium Chlor 0.9% Inj 48 ML IV.CONT PRN ×2 (07:55→16:29)
[2018-10-10] MEDS: predniSONE 20 MG Tablet PO SCH (08:00)
[2018-10-10] MEDS: Pantoprazole Inj 40 MG Vial IV.PUSH SCH (08:00)
[2018-10-10] MEDS: QUEtiapine 100 MG Tablet PO SCH ×3 (08:00→17:46)
[2018-10-10] MEDS: Sodium Chloride 0.9% 2 ML Flush BID IV.FLUSH SCH ×2 (08:00→21:50)
[2018-10-10] MEDS: Senna/Docusate Sodium 8.6/50 MG Tablet PO SCH ×2 (08:01→21:49)
--- NOTE | 2018-10-10 09:56 | XR ---
EXAM DATE: 10/10/2018 9:34 AM EST AGE/SEX: 68 years / Male INDICATIONS: Tracheostomy exchange. CLINICAL DATA: This is the patient's initial encounter. Patient reports that signs and symptoms have been present for 1 day and indicates a pain score of Nonresponsive. MEDICAL/SURGICAL HISTORY: . Chronic obstructive pulmonary disease. . Left chest tubes . COMPARISON: [facility], CHEST 1V SINGLE AP, 10/09/2018. . FINDINGS: Lungs are hyperinflated but clear. Tracheostomy tube present. Heart size is normal. Pulmonary vascula ture appears normal in caliber. Multiple overlying leads are present. CONCLUSION: Hyperinflation of the lungs without evidence of acute cardiopulmonary disease. Electronically signed by: Jessy Harrison MD Board Certified Radiologist 10/10/2018 9:54 AM SARAH Tucker
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
[2018-10-10 16:26] LABS: Bilirubin,Urine Negative (Negative); Clarity,Urine Hazy (Clear); Color,Urine Amber (Yellw/Straw); Glucose,Urine (UA) Negative (Negative); Leukocyte Esterase,Urine Moderate (Negative); Mucus,Urine Few /lpf (Occasional); Nitrite,Urine Negative (Negative); Specific Gravity,Urine 1.015 (1.002-1.035)
[2018-10-10] MEDS ORDERED: Sod Chloride 0.9% Inj 1,000 ML IV.SIG ONE (17:30)
[2018-10-10] MEDS: Sod Chloride 0.9% Inj 1,000 ML IV.SIG SCH (17:48)
[2018-10-11] MEDS: Haloperidol Inj 5 MG/ML Ampul IM PRN ×2 (00:48→08:30)
[2018-10-11] MEDS: Dexmedetomidine Inj 200 MCG in Sodium Chlor 0.9% Inj 48 ML IV.CONT PRN ×7 (00:48→14:12)
[2018-10-11] MEDS: Oral Hygiene Kit OROPHARYNG SCH ×4 (00:49→16:00)
[2018-10-11] MEDS: Artificial Tears Opth Drops 15 ML Bottle EACH EYE SCH ×6 (00:49→20:03)
--- NOTE | 2018-10-11 03:56 | XR ---
EXAM DATE: 10/11/2018 3:40 AM EST AGE/SEX: 68 years / Male INDICATIONS: Evaluate for pneumothorax. CLINICAL DATA: This is the patient's subsequent encounter. Patient reports that signs and symptoms h ave been present for 4 - 6 days and indicates a pain score of Nonresponsive. MEDICAL/SURGICAL HISTORY: Hypertension. Chronic obstructive pulmonary disease. Smoker. Chest tube, left. Tracheostomy. COMPARISON: [facility] [place], CHEST 1V SINGLE AP, 10/10/2018. . FINDINGS: A single AP view of the chest demonstrates the lungs to be symmetrically hyperaerated without evidenc e of mass, infiltrate or effusion. The cardiomediastinal contours are unremarkable. Osseous structu res are intact. CONCLUSION: No evidence of pneumothorax. Stable appearance to bilateral hyperaerated lungs. Electronically signed by: River Epstein MD Board Certified Radiologist 10/11/2018 3:54 AM EST
[2018-10-11 04:12] LABS: Baso % (Auto) 0.1 % (0.0-2.0); Eos # (Auto) 0.1 th/mm3 (0.0-0.4); Eos % (Auto) 0.4 % (0.0-4.0); Hematocrit 23.1 % (39.0-51.0); Hemoglobin 7.3 gm/dL (13.0-17.0); Lymph # (Auto) 0.5 th/mm3 (1.0-4.8); Lymph % (Auto) 3.3 % (9.0-44.0); Mean Corpuscular HGB Conc 31.8 % (32.0-36.0); Mean Corpuscular Hemoglobin 29.6 pg (27.0-34.0); Mean Platelet Volume 8.7 fL (7.0-11.0); Mono # (Auto) 0.9 th/mm3 (0.0-0.9); Mono % (Auto) 6.4 % (0.0-8.0); Neut # (Auto) 12.2 th/mm3 (1.8-7.7); Neut % (Auto) 89.8 % (16.0-70.0); Platelet Count 191 th/mm3 (150-450); Red Blood Count 2.48 mil/mm3 (4.50-5.90); Red Cell Distribution Width 15.7 % (11.6-17.2); White Blood Count 13.6 th/mm3 (4.0-11.0)
[2018-10-11 04:41] LABS: Alanine Aminotransferase 21 U/L (12-78); Albumin 2.1 g/dL (3.4-5.0); Alkaline Phosphatase 157 U/L (45-117); Anion Gap 5 meq/L (5-15); Aspartate Aminotransferase 15 U/L (15-37); Blood Urea Nitrogen 70 mg/dL (7-18); Carbon Dioxide 29.5 meq/L (21.0-32.0); Chloride 112 meq/L (98-107); Glomerular Filtration Rate 55 mL/min (>89); Glucose,Random 123 mg/dL (74-106); Potassium 5.7 meq/L (3.5-5.1); Sodium 146 meq/L (136-145); Total Protein 6.7 g/dL (6.4-8.2)
[2018-10-11] MEDS: Heparin - SQ 10,000 UNITS/ML Vial SQ SCH ×3 (05:21→21:34)
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
[2018-10-11] MEDS: Senna/Docusate Sodium 8.6/50 MG Tablet PO SCH ×2 (08:30→20:04)
[2018-10-11] MEDS: Pantoprazole Inj 40 MG Vial IV.PUSH SCH (08:30)
[2018-10-11] MEDS: QUEtiapine 100 MG Tablet PO SCH ×3 (08:30→17:26)
[2018-10-11] MEDS: predniSONE 20 MG Tablet PO SCH (08:31)
[2018-10-11] MEDS: Chlorhexidine 0.12% Oral Kit 15 ML UDC OROPHARYNG SCH ×2 (08:32→20:03)
[2018-10-11] MEDS: Sodium Polystyrene Sulfonate/Sorbitol Liq 15 GM/60 ML UDC NG/OG SCH ×3 (08:32→20:07)
[2018-10-11] MEDS: Sod Chloride 0.9% Inj 1,000 ML IV.SIG SCH ×2 (08:32→21:33)
[2018-10-11] MEDS: Sodium Chloride 0.9% 2 ML Flush BID IV.FLUSH SCH ×2 (08:33→20:04)
[2018-10-11] MEDS ORDERED: Sod Chloride 0.9% Inj 1,000 ML IV.SIG ONE (09:30)
[2018-10-11] MEDS ORDERED: Sodium Chlor 0.9% Inj 250 ML IV.SIG SCH (10:00)
[2018-10-11 12:24] LABS: Creatinine,Urine Random 277 mg/dL (27-300); Sodium,Urine Random 17 meq/L
--- NOTE | 2018-10-11 13:26 | P.DIET ---
Nutritional Evaluation Type of nutrition evaluation: follow-up Nutrition consult regarding: Tube Feeding Screening comments: Returned from [facility] Objective - Diagnosis pneumothorax, r/o - Objective % IBW: 103 (IBW = 172#) Body Weight Used for Calculations: Actual (80.8 kg) Energy Needs - Lower Range (kCal/kg): 28 Energy Needs - Upper Range (kCal/kg): 32 Lower Limit kCal/kg (kCals): 2,262 Upper Limit kCal/kg (kCals): 2,586 Lower Limit Protein Factor (Grams per Kg): 1.2 Upper Limit Protein Factor (Grams per Kg): 1.6 Lower Protein Needs (Protein): 97 Upper Protein Needs (Protein): 129 Dietitian Reviewed in Medical Record: Curent medications, Intake & Output, Labs , Medical history, Tube feeding, Wound/DTI Diet Order: NPO Objective Comments: [facility] [place] 09/15/2018 Assessment Assessment: Pt returned form [facility] with a packed wound of the L chest. Pt is dependent and he is currently receiving Vital 1.5 @ 65 mls/hr to provide 2340 kcals, 105 gms prtoein and 1192 mls of free water. Labs, wts and clinical course reviewed. Recommendations: Continue Vital 1.5 @ 65 mls/hr goal Dietitian to Monitor: Lab values, Intake & Output, Tube feeding tolerance, Weight change, Medical course
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
[2018-10-11] MEDS: Dexmedetomidine Inj 1,000 MCG in Sodium Chlor 0.9% Inj 240 ML IV.CONT PRN (15:55)
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
[2018-10-11] MEDS: Albumin Human 5% Inj 500 ML IV.SIG SCH (17:26)
--- NOTE | 2018-10-11 19:58 | US ---
EXAM DATE: 10/11/2018 7:53 PM EST AGE/SEX: 68 years / Male INDICATIONS: Increased BUN/Creatinine. CLINICAL DATA: This is the patient's initial encounter. Patient reports that signs and symptoms have been present for 1 day and indicates a pain score of 0/10. MEDICAL/SURGICAL HISTORY: . Bronchopleural fistula. . Wound debridement. Tracheostomy. Vacuum drainage catheter. COMPARISON: No prior exams available for comparison. MEASUREMENTS: Right Kidney:__11.4 x 3.8 x 5.1 cm Left Kidney:__11.2 x 5.1 x 6.2 cm FINDINGS: Right Kidney: Normal echogenicity and cortical thickness. No mass or hydronephrosis. Left Kidney: Normal echogenicity and cortical thickness. No mass or hydronephrosis. Bladder: Anthony catheter is present. Bladder decompressed. Other: Minimal ascites is noted along the liver edge. CONCLUSION: 1. Unremarkable kidneys bilaterally. 2. Unremarkable urinary bladder which contains a Anthony catheter. 3. Minimal ascites. Electronically signed by: Jason Crouch MD Board Certified Radiologist 10/11/2018 7:57 PM EST
[2018-10-12] MEDS: Dexmedetomidine Inj 1,000 MCG in Sodium Chlor 0.9% Inj 240 ML IV.CONT PRN ×3 (00:04→16:35)
[2018-10-12] MEDS: Artificial Tears Opth Drops 15 ML Bottle EACH EYE SCH ×7 (00:46→23:56)
[2018-10-12] MEDS: Oral Hygiene Kit OROPHARYNG SCH ×5 (00:46→23:55)
[2018-10-12] MEDS: Haloperidol Inj 5 MG/ML Ampul IM PRN ×3 (00:47→22:16)
[2018-10-12 03:42] LABS: Baso # (Auto) 0.2 th/mm3 (0.0-0.2); Baso % (Auto) 1.1 % (0.0-2.0); Eos % (Auto) 0.2 % (0.0-4.0); Hematocrit 26.6 % (39.0-51.0); Hemoglobin 8.4 gm/dL (13.0-17.0); Lymph # (Auto) 0.6 th/mm3 (1.0-4.8); Lymph % (Auto) 3.7 % (9.0-44.0); Mean Corpuscular HGB Conc 31.6 % (32.0-36.0); Mean Corpuscular Volume 92.1 fL (80.0-100.0); Mean Platelet Volume 9.6 fL (7.0-11.0); Mono % (Auto) 6.3 % (0.0-8.0); Neut # (Auto) 14.3 th/mm3 (1.8-7.7); Neut % (Auto) 88.7 % (16.0-70.0); Platelet Count 192 th/mm3 (150-450); Red Blood Count 2.89 mil/mm3 (4.50-5.90); White Blood Count 16.2 th/mm3 (4.0-11.0)
[2018-10-12] MEDS: Albumin Human 5% Inj 500 ML IV.SIG SCH ×2 (03:44→15:34)
[2018-10-12 03:52] LABS: Alanine Aminotransferase 20 U/L (12-78); Albumin 2.4 g/dL (3.4-5.0); Anion Gap 7 meq/L (5-15); Aspartate Aminotransferase 13 U/L (15-37); Blood Urea Nitrogen 79 mg/dL (7-18); Calcium 7.8 mg/dL (8.5-10.1); Carbon Dioxide 28.2 meq/L (21.0-32.0); Chloride 113 meq/L (98-107); Glomerular Filtration Rate 46 mL/min (>89); Glucose,Random 129 mg/dL (74-106); Iron 46 mcg/dL (65-175); Potassium 5.5 meq/L (3.5-5.1); Sodium 148 meq/L (136-145)
[2018-10-12 03:55] LABS: % Iron Saturation 29.9 % (20-50); Alkaline Phosphatase 169 U/L (45-117); Ferritin 960 ng/mL (26-388); Phosphorus 5.2 mg/dL (2.5-4.9); Total Iron Binding Capacity 154 mcg/dL (250-450); Total Protein 7.4 g/dL (6.4-8.2)
[2018-10-12 04:33] LABS: Platelet Estimate Normal (Normal); Platelet Morphology Normal (Normal)
[2018-10-12] MEDS: Heparin - SQ 10,000 UNITS/ML Vial SQ SCH ×3 (05:08→21:13)
[2018-10-12] MEDS: Chlorhexidine 0.12% Oral Kit 15 ML UDC OROPHARYNG SCH ×2 (07:45→20:23)
[2018-10-12] MEDS: Senna/Docusate Sodium 8.6/50 MG Tablet PO SCH ×2 (08:09→20:22)
[2018-10-12] MEDS: predniSONE 20 MG Tablet PO SCH (08:09)
[2018-10-12] MEDS: QUEtiapine 100 MG Tablet PO SCH ×2 (08:09→16:36)
[2018-10-12] MEDS: Pantoprazole Inj 40 MG Vial IV.PUSH SCH (08:10)
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
[2018-10-12] MEDS: Sodium Chloride 0.9% 2 ML Flush BID IV.FLUSH SCH ×2 (09:00→20:23)
[2018-10-12] MEDS: Sod Chloride 0.9% Inj 1,000 ML IV.SIG SCH (12:15)
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
[2018-10-12] MEDS: levoFLOXacin 500 MG Tablet PO SCH (13:46)
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
--- NOTE | 2018-10-12 15:25 | ECG ---
Date Performed: 10/12/2018 Time Performed: 11:01:56 PTAGE: 68 years EKG: Sinus rhythm LOW QRS VOLTAGE ABNORMAL ECG NO PREVIOUS TRACING DOCTOR: Huan Grey Interpretating Date/Time 10/12/2018 15:20:33
[2018-10-12] MEDS: Bumetanide Inj 25 MG/100 ML BAG IV.CONT SCH (16:34)
--- NOTE | 2018-10-12 16:41 | P.PNNP ---
Subjective Interval history: Condition unchanged. Patient is sleeping and difficult to arouse. Creatinine is slightly higher at 1.52 with poor urinary output. <Tabitha Lockwood - Last Filed: 10/12/18 16:35> Physical Exam Vital signs: Vital Signs 10/11/18 17:00 10/11/18 18:00 10/11/18 19:00 Temperature Pulse Rate 63 61 57 L Respiratory Rate 17 15 19 Blood Pressure 127/66 119/59 L 123/66 Pulse Oximetry 100 100 100 10/11/18 19:20 10/11/18 20:00 10/11/18 21:00 Temperature 97.9 F Pulse Rate 60 62 Respiratory Rate 14 19 15 Blood Pressure 120/73 158/77 H Pulse Oximetry 100 100 100 10/11/18 22:00 10/11/18 22:34 10/11/18 23:00 Temperature Pulse Rate 58 L 59 L Respiratory Rate 14 14 16 Blood Pressure 148/66 H 143/67 H Pulse Oximetry 100 100 100 10/12/18 00:00 10/12/18 00:09 10/12/18 01:00 Temperature 98.4 F Pulse Rate 100 H 81 88 Respiratory Rate 18 20 22 Blood Pressure 177/78 H 144/63 H Pulse Oximetry 100 100 100 10/12/18 02:00 10/12/18 03:00 10/12/18 04:00 Temperature 97.8 F Pulse Rate 66 89 70 Respiratory Rate 14 17 18 Blood Pressure 131/63 132/63 122/63 Pulse Oximetry 100 100 100 10/12/18 04:02 10/12/18 05:00 10/12/18 06:00 Temperature Pulse Rate 74 73 Respiratory Rate 14 18 24 Blood Pressure 150/67 H 133/70 Pulse Oximetry 100 100 100 10/12/18 07:00 10/12/18 07:38 10/12/18 08:00 Temperature 99.1 F Pulse Rate 71 119 H Respiratory Rate 24 16 24 Blood Pressure 117/58 L 151/70 H Pulse Oximetry 100 94 L 100 10/12/18 09:00 10/12/18 10:00 10/12/18 11:00 Temperature Pulse Rate 76 79 72 Respiratory Rate 15 15 14 Blood Pressure 109/65 153/91 H 140/80 Pulse Oximetry 100 97 98 10/12/18 11:26 10/12/18 12:00 10/12/18 13:00 Temperature 98.7 F Pulse Rate 71 70 Respiratory Rate 15 20 16 Blood Pressure 144/68 H 153/85 H Pulse Oximetry 97 98 98 10/12/18 14:00 10/12/18 15:00 10/12/18 15:08 Temperature Pulse Rate 68 80 Respiratory Rate 22 17 14 Blood Pressure 151/72 H 125/60 Pulse Oximetry 99 100 97 Intake & Output 10/11/18 10/12/18 10/12/18 18:59 06:59 18:59 Intake Total 3346 / 3346 3018 / 3018 1250 / 1250 Output Total 150 / 150 310 / 310 Balance 3196 / 3196 2708 / 2708 1250 / 1250 Weight 89.9 kg Intake: IV 1700 / 1700 2450 / 2450 1250 / 1250 Precedex Inj 1,000 MCG In NS 250 / 250 250 / 250 Inj 240 ML @ 0.2 MCG/KG/HR 4.13 mls/hr IV.CONT TITRATE PRN Rx# :[id number] Precedex Inj 200 MCG In NS Inj 250 / 250 48 ML @ 0.2 MCG/KG/HR 4.13 mls/ hr IV.CONT TITRATE PRN Rx#: [id number] Alburx 5% Inj 500 ML @ 250 mls/ 1000 / 1000 hr IV.SIG Q12H AUDREY Rx#:[id number] Maxipime Inj 2,000 MG In NS Inj 200 / 200 200 / 200 100 ML @ 200 mls/hr IV.SIG Q8HR AUDREY Rx#:[id number] NS Inj 1,000 ML @ 40 mls/hr IV. 1000 / 1000 1000 / 1000 1000 / 1000 SIG .Q24H AUDREY Rx#:[id number] NS Inj 250 ML @ 15 mls/hr IV. 250 / 250 SIG ONCE AUDREY Rx#:[id number] Tube Feeding 756 / 756 568 / 568 Other 490 / 490 Rbc As-3 Leukoreduced Unit 250 / 250 [id number] Intake (Blood Product) Amt 400 / 400 Rbc As-3 Leukoreduced Unit 400 / 400 [id number] Output: Urine Amount (Catheter) 150 / 150 300 / 300 Indwelling Urethral Catheter 150 / 150 300 / 300 Wound Vac Amount 0 / 0 10 / 10 Left Flank 0 / 0 10 / 10 Other: Mode Setting Left Flank Continuous Continuous Continuous Date of Last Bowel Movement 10/09/18 10/12/18 10/12/18 # Incontinent Bowel Movements 1 Narrative: GENERAL: No obvious signs of distress. SKIN: Warm and dry. NECK: Supple, trachea midline. No JVD. Tracheotomy CARDIOVASCULAR: Regular rate and rhythm without murmurs, gallops, or rubs. RESPIRATORY: Breath sounds equal bilaterally. No accessory muscle use. GASTROINTESTINAL: Abdomen soft, non-tender, nondistended. + BS. GENITOURINARY: Indwelling Anthony catheter MUSCULOSKELETAL: No cyanosis, generalized pitting edema. - Urinary Catheter Management Indwelling Temp Sensing Catheter Cath placed during this visit: yes, but has since been removed by the nurse Reason for continuing: Decision to DC catheter Removal date: 10/08/18 Removal time: 16:20 Condom Cath placed during this visit: no Indwelling Urethral Catheter Cath placed during this visit: yes Reason for continuing: Other continuation reason Insertion date: 10/10/18 Insertion time: 09:35 <Tabitha Lockwood - Last Filed: 10/12/18 16:35> Vital signs: Vital Signs 10/11/18 22:00 10/11/18 22:34 10/11/18 23:00 Temperature Pulse Rate 58 L 59 L Respiratory Rate 14 14 16 Blood Pressure 148/66 H 143/67 H Pulse Oximetry 100 100 100 10/12/18 00:00 10/12/18 00:09 10/12/18 01:00 Temperature 98.4 F Pulse Rate 100 H 81 88 Respiratory Rate 18 20 22 Blood Pressure 177/78 H 144/63 H Pulse Oximetry 100 100 100 10/12/18 02:00 10/12/18 03:00 10/12/18 04:00 Temperature 97.8 F Pulse Rate 66 89 70 Respiratory Rate 14 17 18 Blood Pressure 131/63 132/63 122/63 Pulse Oximetry 100 100 100 10/12/18 04:02 10/12/18 05:00 10/12/18 06:00 Temperature Pulse Rate 74 73 Respiratory Rate 14 18 24 Blood Pressure 150/67 H 133/70 Pulse Oximetry 100 100 100 10/12/18 07:00 10/12/18 07:38 10/12/18 08:00 Temperature 99.1 F Pulse Rate 71 119 H Respiratory Rate 24 16 24 Blood Pressure 117/58 L 151/70 H Pulse Oximetry 100 94 L 100 10/12/18 09:00 10/12/18 10:00 10/12/18 11:00 Temperature Pulse Rate 76 79 72 Respiratory Rate 15 15 14 Blood Pressure 109/65 153/91 H 140/80 Pulse Oximetry 100 97 98 10/12/18 11:26 10/12/18 12:00 10/12/18 13:00 Temperature 98.7 F Pulse Rate 71 70 Respiratory Rate 15 20 16 Blood Pressure 144/68 H 153/85 H Pulse Oximetry 97 98 98 10/12/18 14:00 10/12/18 15:00 10/12/18 15:08 Temperature Pulse Rate 68 80 Respiratory Rate 22 17 14 Blood Pressure 151/72 H 125/60 Pulse Oximetry 99 100 97 10/12/18 16:00 10/12/18 17:00 10/12/18 18:00 Temperature 97.9 F Pulse Rate 61 57 L 56 L Respiratory Rate 14 14 14 Blood Pressure 121/58 L 125/59 L 127/63 Pulse Oximetry 100 100 100 10/12/18 19:44 Temperature Pulse Rate Respiratory Rate 14 Blood Pressure Pulse Oximetry 100 Intake & Output 10/12/18 10/12/18 10/13/18 06:59 18:59 06:59 Intake Total 3018 / 3018 2768 / 2768 Output Total 310 / 310 175 / 175 Balance 2708 / 2708 2593 / 2593 Weight 89.9 kg Intake: IV 2450 / 2450 2000 / 1999 Precedex Inj 1,000 MCG In NS 250 / 250 500 / 500 Inj 240 ML @ 0.2 MCG/KG/HR 4.13 mls/hr IV.CONT TITRATE PRN Rx# :[id number] Alburx 5% Inj 500 ML @ 250 mls/ 1000 / 1000 500 / 500 hr IV.SIG Q12H AUDREY Rx#:[id number] Maxipime Inj 2,000 MG In NS Inj 200 / 200 100 ML @ 200 mls/hr IV.SIG Q8HR AUDREY Rx#:[id number] NS Inj 1,000 ML @ 40 mls/hr IV. 1000 / 1000 1000 / 1000 SIG .Q24H AUDREY Rx#:[id number] Tube Feeding 568 / 568 648 / 648 Other 120 / 120 Output: Urine Amount (Catheter) 300 / 300 175 / 175 Indwelling Urethral Catheter 300 / 300 175 / 175 Wound Vac Amount 10 0 / 0 Left Flank 0 / 0 Other: Mode Setting Left Flank Continuous Continuous Date of Last Bowel Movement 10/12/18 10/12/18 # Incontinent Bowel Movements 1 3 - Urinary Catheter Management Indwelling Temp Sensing Catheter Cath placed during this visit: no Condom Cath placed during this visit: no Indwelling Urethral Catheter Cath placed during this visit: no <Karmen Brito - Last Filed: 10/12/18 21:38> Assessment and Plan - Assessment (1) Acute kidney injury Code(s): N17.9 - Acute kidney failure, unspecified Status: Acute Plan: Acute kidney injury with a creatinine of 1.30 which has increased 0.73 FeNa at 0.5 % suggestive of prerenal azotemia possibly from third spacing. Avoid nephrotoxins including NSAIDS, IV contrast, and aminoglycosides. Patient with anasarca and poor urinary output. Has been on Lasix with poor response. Will discontinue and add bumex gtt 1 mg/hr. Continue albumin. Hyperkalemia slightly better at 5.5, repeat ordered for 1800, will treat if increased. Will follow urinary output and BMP, SPEP pending. Labs in AM (2) Leukocytosis Code(s): D72.829 - Elevated white blood cell count, unspecified Status: Acute Plan: On cefepime and Diflucan per ID (3) Anemia Code(s): D64.9 - Anemia, unspecified Status: Acute Plan: HGB improved. Iron stores adequate. <Tabitha Lockwood - Last Filed: 10/12/18 16:35> - Assessment (1) Acute kidney injury Code(s): N17.9 - Acute kidney failure, unspecified Status: Acute Plan: Patient seen and examined, agree with above. K is better, has more edema, start Bumex gtt. If not better, may need Dialysis. (2) Leukocytosis Code(s): D72.829 - Elevated white blood cell count, unspecified Status: Acute (3) Anemia Code(s): D64.9 - Anemia, unspecified Status: Acute <Karmen Brito - Last Filed: 10/12/18 21:38>
[2018-10-12] MEDS ORDERED: Sodium Polystyrene Sulfonate Powder 15 GM Bottle NG/OG ONE (21:30)
[2018-10-12] MEDS: hydrALAZINE HCl Inj 20 MG/ML Vial IV.PUSH PRN (22:03)
[2018-10-13] MEDS: QUEtiapine 100 MG Tablet PO SCH ×3 (00:37→16:03)
[2018-10-13] MEDS: Dexmedetomidine Inj 1,000 MCG in Sodium Chlor 0.9% Inj 240 ML IV.CONT PRN ×3 (01:21→14:44)
[2018-10-13] MEDS: Albumin Human 5% Inj 500 ML IV.SIG SCH ×2 (03:58→16:04)
[2018-10-13] MEDS: Artificial Tears Opth Drops 15 ML Bottle EACH EYE SCH ×6 (03:59→23:54)
[2018-10-13] MEDS: Oral Hygiene Kit OROPHARYNG SCH ×4 (03:59→23:53)
--- NOTE | 2018-10-13 04:23 | XR ---
EXAM DATE: 10/13/2018 4:07 AM EST AGE/SEX: 68 years / Male INDICATIONS: Respiratory distress. CLINICAL DATA: This is the patient's subsequent encounter. Patient reports that signs and symptoms h ave been present for 1 week and indicates a pain score of Nonresponsive. MEDICAL/SURGICAL HISTORY: Hypertension. Chronic obstructive pulmonary disease. Smoker. Chest tube, left. Tracheostomy. COMPARISON: [facility] [place], CHEST 1V SINGLE AP, 10/11/2018. . FINDINGS: A single AP view of the chest demonstrates hyperinflation with interstitial densities more prominent in the right lung. Tracheostomy tube is stable. There appears to be a nasogastric tube with tip in st omach The cardiomediastinal contours are unremarkable. Osseous structures are intact. CONCLUSION: Hyperinflation with interstitial densities Electronically signed by: Gabriel Welsh MD Board Certified Radiologist 10/13/2018 4:21 AM EST
[2018-10-13] MEDS: Sod Chloride 0.9% Inj 1,000 ML IV.SIG SCH ×2 (05:04→09:23)
[2018-10-13 05:12] LABS: Baso # (Auto) 0.1 th/mm3 (0.0-0.2); Baso % (Auto) 0.4 % (0.0-2.0); Eos # (Auto) 0.1 th/mm3 (0.0-0.4); Eos % (Auto) 0.6 % (0.0-4.0); Hematocrit 25.8 % (39.0-51.0); Hemoglobin 8.3 gm/dL (13.0-17.0); Lymph # (Auto) 0.5 th/mm3 (1.0-4.8); Lymph % (Auto) 3.7 % (9.0-44.0); Mean Corpuscular HGB Conc 32.2 % (32.0-36.0); Mean Corpuscular Hemoglobin 29.9 pg (27.0-34.0); Mean Corpuscular Volume 92.8 fL (80.0-100.0); Mean Platelet Volume 9.5 fL (7.0-11.0); Mono # (Auto) 1.1 th/mm3 (0.0-0.9); Mono % (Auto) 8.2 % (0.0-8.0); Neut # (Auto) 11.9 th/mm3 (1.8-7.7); Neut % (Auto) 87.1 % (16.0-70.0); Platelet Count 161 th/mm3 (150-450); Red Blood Count 2.78 mil/mm3 (4.50-5.90); White Blood Count 13.6 th/mm3 (4.0-11.0)
[2018-10-13 05:43] LABS: Alanine Aminotransferase 20 U/L (12-78); Albumin 2.7 g/dL (3.4-5.0); Anion Gap 7 meq/L (5-15); Aspartate Aminotransferase 15 U/L (15-37); Blood Urea Nitrogen 83 mg/dL (7-18); Calcium 8.2 mg/dL (8.5-10.1); Carbon Dioxide 28.7 meq/L (21.0-32.0); Chloride 112 meq/L (98-107); Glomerular Filtration Rate 34 mL/min (>89); Glucose,Random 149 mg/dL (74-106); Potassium 5.4 meq/L (3.5-5.1); Sodium 148 meq/L (136-145)
[2018-10-13 05:45] LABS: Alkaline Phosphatase 180 U/L (45-117); Total Protein 7.5 g/dL (6.4-8.2)
[2018-10-13] MEDS: Heparin - SQ 10,000 UNITS/ML Vial SQ SCH ×3 (05:45→21:20)
[2018-10-13 06:21] LABS: ABG Base Excess 1.8 mmol/L (-2-2); ABG PCO2 56 mmHg (38-42); ABG PO2 244 mmHg (61-120)
--- NOTE | 2018-10-13 08:13 | P.PNNPSY ---
- Behavior Moderate: Impulsive/agitated - Progress Notes/Response to Treatment Contents of Sessions: Adjustment, Level of consciousness Time with Patient: 30 minutes Premorbid Psychological Status: Premorbid Cognitive, Emotional and Behavioral Status: Unstable. The patient has high school years of education and a sporadic work history prior to this injury. The patient has presumed prior psychiatric difficulties, as described above. Substance abuse history is significant for ETOH. Behavioral Reactions of Patient and Family/Support System: Tenuous. The patients family is experiencing ongoing issues of adjustment given the nature of the injury, and this aspect of recovery will require ongoing monitoring. Emotional/Behavioral Status of Patient and Family/Support System: Tenuous. Pertinent issues, if appropriate to this patients clinical care, are described in detail above. Maximizing Acute Care Outcome: It is recommended that the patient be monitored for emergent behavioral impulsivity as the medical condition evolves. At this point in the recovery process, the patient does not have cognitive capacity as the patient is unable to understand a situation and its likely consequences, nor is the patient able to manipulate information rationally. Cognitive capacity will be assessed throughout the recovery process. Anticipated Problems: Ongoing areas of concern will include behavioral impulsivity, lack of insight and judgment, which is expected to improve with time and treatment. Treatment Plan: This clinician will continue to follow with you throughout the course of this patients critical care treatment, and I will be available to meet with the patients family/support system to facilitate their understanding and the ongoing care of their family member. The goals of neuropsychological intervention shall be both educational and supportive to the family/support system as is deemed clinically appropriate. Disinhibition Score: 31.50 Aggression Score: 24.50 Lability Score: 18.66 Agitated Behavior Total Score: 26 Impression: 68 year old man with multiple medical challenges resulting in major neurocognitive disorder. Progress Note Narrative: Day 9 of hospitalization. Agitation continues to be a problem, as he received PRN Haldol last night at 2216. Also on board is Seroquel 100 q8H and VPA 250 BID. EKG performed showing low QRS voltage and interpreted as abnormal. Recent ABS is 26 (31.5,24.5,18.7). Multiple medical issues on top of these findings. I will follow. - Diagnosis (1) Major neurocognitive disorder due to multiple etiologies Status: Acute
[2018-10-13] MEDS: Pantoprazole Inj 40 MG Vial IV.PUSH SCH (08:27)
[2018-10-13] MEDS: Sodium Chloride 0.9% 2 ML Flush BID IV.FLUSH SCH ×2 (08:28→20:06)
[2018-10-13] MEDS: predniSONE 20 MG Tablet PO SCH (08:28)
[2018-10-13] MEDS: levoFLOXacin 500 MG Tablet PO SCH (08:28)
[2018-10-13] MEDS: Haloperidol Inj 5 MG/ML Ampul IM PRN (08:38)
[2018-10-13] MEDS: Chlorhexidine 0.12% Oral Kit 15 ML UDC OROPHARYNG SCH ×2 (09:23→20:10)
[2018-10-13] MEDS: Senna/Docusate Sodium 8.6/50 MG Tablet PO SCH ×2 (09:24→20:07)
--- NOTE | 2018-10-13 10:47 | P.PNNP ---
Subjective Interval history: Patient seen in morning. Breathing pattern is abnormal. Creatinine increasing at 1.97 on bumex gtt. Urinary output remains low at 550 ml/24 hours. <Tabitha Lockwood - Last Filed: 10/13/18 14:22> Physical Exam Vital signs: Vital Signs 10/12/18 11:00 10/12/18 11:26 10/12/18 12:00 Temperature 98.7 F Pulse Rate 72 71 Respiratory Rate 14 15 20 Blood Pressure 140/80 144/68 H Pulse Oximetry 98 97 98 10/12/18 13:00 10/12/18 14:00 10/12/18 15:00 Temperature Pulse Rate 70 68 80 Respiratory Rate 16 22 17 Blood Pressure 153/85 H 151/72 H 125/60 Pulse Oximetry 98 99 100 10/12/18 15:08 10/12/18 16:00 10/12/18 17:00 Temperature 97.9 F Pulse Rate 61 57 L Respiratory Rate 14 14 14 Blood Pressure 121/58 L 125/59 L Pulse Oximetry 97 100 100 10/12/18 18:00 10/12/18 19:00 10/12/18 19:44 Temperature Pulse Rate 56 L 55 L Respiratory Rate 14 14 14 Blood Pressure 127/63 128/61 Pulse Oximetry 100 100 100 10/12/18 20:00 10/12/18 20:20 10/12/18 21:00 Temperature 97.8 F Pulse Rate 55 L 55 L 53 L Respiratory Rate 14 14 14 Blood Pressure 183/79 H 155/70 H 145/67 H Pulse Oximetry 100 100 100 10/12/18 22:00 10/12/18 22:03 10/12/18 22:17 Temperature Pulse Rate 53 L 54 L 95 H Respiratory Rate 14 14 18 Blood Pressure 172/79 H 206/93 H Pulse Oximetry 100 100 98 10/12/18 22:35 10/12/18 23:00 10/12/18 23:05 Temperature Pulse Rate 124 H 125 H 126 H Respiratory Rate 20 16 16 Blood Pressure 172/72 H 152/75 H Pulse Oximetry 99 98 98 10/12/18 23:20 10/12/18 23:35 10/13/18 00:00 Temperature Pulse Rate 110 H 117 H Respiratory Rate 16 16 22 Blood Pressure 143/77 H Pulse Oximetry 100 100 99 10/13/18 00:05 10/13/18 00:35 10/13/18 01:00 Temperature Pulse Rate 115 H 98 H 90 Respiratory Rate 16 16 14 Blood Pressure 128/93 H 122/63 Pulse Oximetry 100 100 99 10/13/18 01:05 10/13/18 01:35 10/13/18 02:00 Temperature Pulse Rate 116 H 90 79 Respiratory Rate 14 18 17 Blood Pressure 157/78 H 134/65 Pulse Oximetry 98 99 99 10/13/18 02:05 10/13/18 02:35 10/13/18 03:00 Temperature Pulse Rate 75 66 66 Respiratory Rate 12 14 14 Blood Pressure 120/59 L 114/62 Pulse Oximetry 99 98 98 10/13/18 03:05 10/13/18 03:35 10/13/18 03:44 Temperature Pulse Rate 65 117 H Respiratory Rate 14 18 17 Blood Pressure 114/60 183/92 H Pulse Oximetry 98 98 100 10/13/18 03:57 10/13/18 04:00 10/13/18 04:05 Temperature 98.0 F Pulse Rate 107 H 103 H 122 H Respiratory Rate 18 16 18 Blood Pressure 150/80 H 144/70 H Pulse Oximetry 98 98 98 10/13/18 04:35 10/13/18 05:00 10/13/18 05:05 Temperature Pulse Rate 68 83 75 Respiratory Rate 14 21 21 Blood Pressure 122/62 112/57 L Pulse Oximetry 99 99 99 10/13/18 05:35 10/13/18 06:00 10/13/18 06:05 Temperature Pulse Rate 116 H 70 68 Respiratory Rate 18 14 14 Blood Pressure 158/74 H 133/67 Pulse Oximetry 98 99 99 10/13/18 06:35 10/13/18 07:00 10/13/18 07:05 Temperature Pulse Rate 66 70 106 H Respiratory Rate 14 44 H 32 H Blood Pressure 123/67 191/93 H Pulse Oximetry 98 99 97 10/13/18 07:17 10/13/18 07:35 10/13/18 07:41 Temperature Pulse Rate 99 H 119 H 120 H Respiratory Rate 29 H 31 H 31 H Blood Pressure 188/83 H 185/76 H 162/63 H Pulse Oximetry 99 98 98 10/13/18 08:00 10/13/18 08:05 10/13/18 08:35 Temperature 97.6 F Pulse Rate 115 H 122 H 117 H Respiratory Rate 35 H 32 H 39 H Blood Pressure 141/79 H 138/65 Pulse Oximetry 97 98 98 10/13/18 08:40 10/13/18 09:00 10/13/18 09:05 Temperature Pulse Rate 111 H 83 78 Respiratory Rate 16 8 L 8 L Blood Pressure 97/54 L Pulse Oximetry 99 99 99 Intake & Output 10/12/18 10/13/18 10/13/18 18:59 06:59 18:59 Intake Total 2768 / 2768 1258 / 1258 1250 / 1250 Output Total 175 / 175 390 / 390 Balance 2593 / 2593 868 / 868 1250 / 1250 Weight 92.3 kg Intake: IV 1999 / 1999 700 / 700 1250 / 1250 Precedex Inj 1,000 MCG In NS 500 / 500 200 / 200 250 / 250 Inj 240 ML @ 0.2 MCG/KG/HR 4.13 mls/hr IV.CONT TITRATE PRN Rx# :[id number] Alburx 5% Inj 500 ML @ 250 mls/ 500 / 500 500 / 500 hr IV.SIG Q12H [facility] Rx#:[id number] NS Inj 1,000 ML @ 40 mls/hr IV. 1000 / 1000 1000 / 1000 SIG .Q24H [facility] Rx#:[id number] Tube Feeding 648 / 648 558 / 558 Other 120 / 120 Output: Urine Amount (Catheter) 175 / 175 375 / 375 Indwelling Urethral Catheter 175 / 175 375 / 375 Wound Vac Amount 0 / 0 15 / 15 Left Flank 0 / 0 15 / 15 Other: Mode Setting Left Flank Continuous Continuous Continuous Date of Last Bowel Movement 10/12/18 10/13/18 10/13/18 # Incontinent Bowel Movements 3 3 Narrative: GENERAL: Eyes open not responding to commands. SKIN: Warm and dry. NECK: Supple, trachea midline. No JVD. Tracheotomy CARDIOVASCULAR: Regular rate and rhythm without murmurs, gallops, or rubs. RESPIRATORY: Breath sounds rhonchi bilaterally. Opening mouth wider at each breath. GASTROINTESTINAL: Abdomen soft, non-tender, nondistended. + BS. GENITOURINARY: Indwelling Anthony catheter, dark colored urine. MUSCULOSKELETAL: No cyanosis, generalized pitting edema. - Urinary Catheter Management Indwelling Temp Sensing Catheter Cath placed during this visit: yes, but has since been removed by the nurse Reason for continuing: Decision to DC catheter Removal date: 10/08/18 Removal time: 16:20 Condom Cath placed during this visit: no Indwelling Urethral Catheter Cath placed during this visit: yes Reason for continuing: Other continuation reason Insertion date: 10/10/18 Insertion time: 09:35 <Tabitha Lockwood - Last Filed: 10/13/18 14:22> Vital signs: Vital Signs 10/12/18 23:00 10/12/18 23:05 10/12/18 23:20 Temperature Pulse Rate 125 H 126 H Respiratory Rate 16 16 16 Blood Pressure 152/75 H Pulse Oximetry 98 98 100 10/12/18 23:35 10/13/18 00:00 10/13/18 00:05 Temperature Pulse Rate 110 H 117 H 115 H Respiratory Rate 16 22 16 Blood Pressure 143/77 H 128/93 H Pulse Oximetry 100 99 100 10/13/18 00:35 10/13/18 01:00 10/13/18 01:05 Temperature Pulse Rate 98 H 90 116 H Respiratory Rate 16 14 14 Blood Pressure 122/63 157/78 H Pulse Oximetry 100 99 98 10/13/18 01:35 10/13/18 02:00 10/13/18 02:05 Temperature Pulse Rate 90 79 75 Respiratory Rate 18 17 12 Blood Pressure 134/65 120/59 L Pulse Oximetry 99 99 99 10/13/18 02:35 10/13/18 03:00 10/13/18 03:05 Temperature Pulse Rate 66 66 65 Respiratory Rate 14 14 14 Blood Pressure 114/62 114/60 Pulse Oximetry 98 98 98 10/13/18 03:35 10/13/18 03:44 10/13/18 03:57 Temperature Pulse Rate 117 H 107 H Respiratory Rate 18 17 18 Blood Pressure 183/92 H 150/80 H Pulse Oximetry 98 100 98 10/13/18 04:00 10/13/18 04:05 10/13/18 04:35 Temperature 98.0 F Pulse Rate 103 H 122 H 68 Respiratory Rate 16 18 14 Blood Pressure 144/70 H 122/62 Pulse Oximetry 98 98 99 10/13/18 05:00 10/13/18 05:05 10/13/18 05:35 Temperature Pulse Rate 83 75 116 H Respiratory Rate 21 21 18 Blood Pressure 112/57 L 158/74 H Pulse Oximetry 99 99 98 10/13/18 06:00 10/13/18 06:05 10/13/18 06:35 Temperature Pulse Rate 70 68 66 Respiratory Rate 14 14 14 Blood Pressure 133/67 123/67 Pulse Oximetry 99 99 98 10/13/18 07:00 10/13/18 07:05 10/13/18 07:17 Temperature Pulse Rate 70 106 H 99 H Respiratory Rate 44 H 32 H 29 H Blood Pressure 191/93 H 188/83 H Pulse Oximetry 99 97 99 10/13/18 07:35 10/13/18 07:41 10/13/18 08:00 Temperature 97.6 F Pulse Rate 119 H 120 H 115 H Respiratory Rate 31 H 31 H 35 H Blood Pressure 185/76 H 162/63 H Pulse Oximetry 98 98 97 10/13/18 08:05 10/13/18 08:35 10/13/18 08:40 Temperature Pulse Rate 122 H 117 H 111 H Respiratory Rate 32 H 39 H 16 Blood Pressure 141/79 H 138/65 Pulse Oximetry 98 98 99 10/13/18 09:00 10/13/18 09:05 10/13/18 10:00 Temperature Pulse Rate 83 78 115 H Respiratory Rate 8 L 8 L 24 Blood Pressure 97/54 L Pulse Oximetry 99 99 98 10/13/18 10:05 10/13/18 10:35 10/13/18 11:00 Temperature Pulse Rate 114 H 93 H 77 Respiratory Rate 22 18 18 Blood Pressure 121/69 115/66 Pulse Oximetry 98 99 98 10/13/18 11:05 10/13/18 11:35 10/13/18 12:00 Temperature 97.6 F Pulse Rate 75 80 93 H Respiratory Rate 12 18 18 Blood Pressure 168/83 H 141/63 H Pulse Oximetry 98 99 99 10/13/18 12:05 10/13/18 12:35 10/13/18 12:49 Temperature Pulse Rate 81 67 Respiratory Rate 18 18 18 Blood Pressure 131/60 133/63 Pulse Oximetry 99 98 98 10/13/18 13:00 10/13/18 13:05 10/13/18 13:35 Temperature Pulse Rate 66 66 107 H Respiratory Rate 18 18 33 H Blood Pressure 136/65 197/103 H Pulse Oximetry 99 99 98 10/13/18 13:40 10/13/18 14:00 10/13/18 14:05 Temperature Pulse Rate 108 H 119 H 118 H Respiratory Rate 42 H 45 H Blood Pressure 170/73 H 148/89 H Pulse Oximetry 99 100 100 10/13/18 14:30 10/13/18 14:35 10/13/18 15:00 Temperature Pulse Rate 122 H 123 H 117 H Respiratory Rate 26 H 24 29 H Blood Pressure 138/74 Pulse Oximetry 99 96 10/13/18 15:05 10/13/18 15:35 10/13/18 16:00 Temperature 97.7 F Pulse Rate 116 H 80 110 H Respiratory Rate 30 H 8 L 30 H Blood Pressure 133/80 109/58 L Pulse Oximetry 96 97 95 10/13/18 16:05 10/13/18 16:34 10/13/18 16:35 Temperature Pulse Rate 115 H 89 Respiratory Rate 29 H 23 14 Blood Pressure 145/71 H 108/70 Pulse Oximetry 95 98 99 10/13/18 17:00 10/13/18 17:05 10/13/18 17:35 Temperature Pulse Rate 79 81 98 H Respiratory Rate 14 12 23 Blood Pressure 105/59 L 177/81 H Pulse Oximetry 98 98 95 10/13/18 18:00 10/13/18 18:05 10/13/18 18:35 Temperature Pulse Rate 107 H 109 H 112 H Respiratory Rate 21 17 25 H Blood Pressure 175/70 H 165/76 H Pulse Oximetry 98 98 98 10/13/18 19:00 10/13/18 19:46 10/13/18 20:00 Temperature 97.4 F L Pulse Rate 106 H 109 H 95 H Respiratory Rate 20 20 16 Blood Pressure 154/70 H 129/77 Pulse Oximetry 99 100 100 10/13/18 20:05 10/13/18 21:00 10/13/18 21:35 Temperature Pulse Rate 109 H 83 105 H Respiratory Rate 26 H 13 27 H Blood Pressure 136/63 123/76 Pulse Oximetry 100 100 97 Intake & Output 10/13/18 10/13/18 10/14/18 06:59 18:59 06:59 Intake Total 1258 / 1258 2182 / 2182 Output Total 390 / 390 450 / 450 Balance 868 / 868 1732 / 1732 Weight 92.3 kg Intake: IV 700 / 700 1600 / 1600 Bumex Inj 25 mg In 100 ml @ 1 100 / 100 MG/HR 4 mls/hr IV.CONT .Q24H [facility] Rx#:[id number] Precedex Inj 1,000 MCG In NS 200 / 200 500 / 500 Inj 240 ML @ 0.2 MCG/KG/HR 4.13 mls/hr IV.CONT TITRATE PRN Rx# :[id number] Alburx 5% Inj 500 ML @ 250 mls/ 500 / 500 hr IV.SIG Q12H [facility] Rx#:[id number] NS Inj 1,000 ML @ 40 mls/hr IV. 1000 / 1000 SIG .Q24H [facility] Rx#:[id number] Tube Feeding 558 / 558 462 / 462 Tube Irrigant 120 / 120 Output: Urine Amount (Catheter) 375 / 375 400 / 400 Indwelling Urethral Catheter 375 / 375 400 / 400 Wound Vac Amount 15 50 / 50 Left Flank 15 50 / 50 Other: Mode Setting Left Flank Continuous Continuous Continuous Date of Last Bowel Movement 10/13/18 10/13/18 10/13/18 # Bowel Movements 1 # Incontinent Bowel Movements 3 - Urinary Catheter Management Indwelling Temp Sensing Catheter Cath placed during this visit: no Condom Cath placed during this visit: no Indwelling Urethral Catheter Cath placed during this visit: no <Yao Brito Q - Last Filed: 10/13/18 22:37> Assessment and Plan - Assessment (1) Acute kidney injury Code(s): N17.9 - Acute kidney failure, unspecified Status: Acute Plan: Acute kidney injury with a creatinine of 1.30 which has increased 0.73 FeNa at 0.5 % suggestive of prerenal azotemia possibly from third spacing. Avoid nephrotoxins including NSAIDS, IV contrast, and aminoglycosides. Creatinine increasing at 1.9 but with continued edema recommend to continue bumex and albumin. Urinary output remains on lower side at 550 ml/24 hours, has indwelling Anthony catheter. Potassium level at 5.4 will treat with Kayexalate. Abdominal CT results reviewed. Will continue to monitor Urinary output and BMP. May need HD if does not improve. (2) Leukocytosis Code(s): D72.829 - Elevated white blood cell count, unspecified Status: Acute Plan: On cefepime and Diflucan per ID (3) Anemia Code(s): D64.9 - Anemia, unspecified Status: Acute Plan: HGB stable at 8.3. Iron stores adequate. <Tabitha Lockwood - Last Filed: 10/13/18 14:22> - Assessment (1) Acute kidney injury Code(s): N17.9 - Acute kidney failure, unspecified Status: Acute Plan: Patient seen and examined, agree with above. Urine out put is low, continue diuretics, May need HD if not better. (2) Leukocytosis Code(s): D72.829 - Elevated white blood cell count, unspecified Status: Acute (3) Anemia Code(s): D64.9 - Anemia, unspecified Status: Acute <Karmen Brito - Last Filed: 10/13/18 22:37>
[2018-10-13 12:17] LABS: Thyroid Stimulating Hormone 1.61 uIU/mL (0.358-3.740)
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
--- NOTE | 2018-10-13 14:10 | CT ---
EXAM DATE: 10/13/2018 2:06 PM EST AGE/SEX: 68 years / Male INDICATIONS: Altered mental status. CLINICAL DATA: This is the patient's subsequent encounter. Patient reports that signs and symptoms h ave been present for 1 month and indicates a pain score of Nonresponsive. MEDICAL/SURGICAL HISTORY: Non-responsive. Non-responsive. RADIATION DOSE: 59.35 CTDI (mGy) COMPARISON: [facility] [place]/O [place], 09/22/2018. . TECHNIQUE: CT of the head without contrast. Using automated exposure control and adjustment of the mA and/or kV according to patient size, radiation dose was kept as low as reasonably achievable to ob tain optimal diagnostic quality images. DICOM format image data is available electronically for revi ew and comparison. FINDINGS: Cerebrum: The ventricles are normal for age. No evidence of midline shift, mass lesion, hemorrhage or acute infarction. No extraaxial fluid collections are seen. Posterior Fossa: The cerebellum and brainstem are intact. The 4th ventricle is midline. The cerebe llopontine angle is unremarkable. Extracranial: The visualized portion of the orbits is intact. Mild mucosal thickening is noted withi n the bilateral maxillary, right sphenoid and bilateral ethmoid sinuses. Skull: The calvaria is intact. No evidence of skull fracture. CONCLUSION: 1. No acute intracranial abnormality. 2. Mild mucosal thickening within the bilateral maxillary and ethmoid sinuses as well as the right s phenoid sinus. . Electronically signed by: Jason Crouch MD Board Certified Radiologist 10/13/2018 2:08 PM EST
--- NOTE | 2018-10-13 14:23 | CT ---
EXAM DATE: 10/13/2018 2:15 PM EST AGE/SEX: 68 years / Male INDICATIONS: Abdominal distention. CLINICAL DATA: This is the patient's initial encounter. Patient reports that signs and symptoms have been present for 1 day and indicates a pain score of Nonresponsive. MEDICAL/SURGICAL HISTORY: Non-responsive. Non-responsive. RADIATION DOSE: 7.41 CTDI (mGy) ; Combined studies COMPARISON: [facility] [place]BD[place] & [place]ELVIS W [place]AST, 09/15/2018. [facility] [place], [place] KIDNEY/RENAL/BLADDER, 09/25. . TECHNIQUE: Multiple contiguous axial images were obtained through the abdomen. Images were obtained using multiple row detector helical technique. Using automated exposure control and adjustment of the mA and/or kV according to patient size, radiation dose was kept as low as reasonably achievable to o btain optimal diagnostic quality images. DICOM format image data is available electronically for rev iew and comparison. FINDINGS: Lower Lungs: Tiny bilateral pleural effusions are noted. Focal patchy opacity is noted within the lef t posterior lung base consistent with possible pneumonia. Clinical correlation is recommended. Liver: The liver has a homogeneous density without space-occupying lesion. There is no dilation of th e biliary tree. Spleen: Homogeneous density without enlargement. Pancreas: Unremarkable without mass or calcification. Kidneys: Normal in size and shape. No evidence of mass or hydronephrosis. Adrenal Glands: Unremarkable. Aorta: The aorta and proximal iliac vessels are grossly unremarkable without aneurysmal dilation. Bowel/Mesentery: Uncomplicated colonic diverticulosis is noted. No acute diverticulitis is noted. So me ascites is noted within the pelvis. A gastrojejunostomy tube is noted. Abdominal Wall: Diffuse anasarca is noted. Retroperitoneum: No evidence of adenopathy in the retrocrural, para-aortic, or deep pelvic regions. Bladder: Contours are smooth. Reproductive Organs: No abnormal masses or calcifications seen. Inguinal: The inguinal region is unremarkable without evidence of adenopathy. Bony Structures: Degenerative changes are noted throughout the thoracolumbar spine. Mild compression deformity is noted involving T12. CONCLUSION: 1. Diffuse anasarca. 2. Uncomplicated colonic diverticulosis. 3. Tiny bilateral pleural effusions. 4. Focal patchy opacity within left posterior lung base consistent with possible pneumonia. Clinical correlation is recommended. 5. Mild compression deformity involving T12. 6. Degenerative changes throughout the thoracolumbar spine. Electronically signed by: Jason Crouch MD Board Certified Radiologist 10/13/2018 2:21 PM EST
[2018-10-13] MEDS ORDERED: Sodium Polystyrene Sulfonate/Sorbitol Liq 15 GM/60 ML UDC PO ONE (14:32)
--- NOTE | 2018-10-13 14:32 | CT ---
EXAM DATE: 10/13/2018 2:13 PM EST AGE/SEX: 68 years / Male INDICATIONS: Respiratory distress. CLINICAL DATA: This is the patient's initial encounter. Patient reports that signs and symptoms have been present for 1 day and indicates a pain score of Nonresponsive. MEDICAL/SURGICAL HISTORY: Non-responsive. Non-responsive. RADIATION DOSE: 7.41 CTDI (mGy) ; Combined studies COMPARISON: [facility] [place], CT CHEST W/O CONTRAST, 09/28/2018. C, CT CHEST W CONTRAST, 09/15/2018. C, CT ABDOMEN & PELVIS W/O CONTRAST, 10/13/2018. . TECHNIQUE: Multiple contiguous axial images were obtained through the chest without contrast. Image s were obtained in suspended respiration using multiple row detector helical technique. Using automa gigi exposure control and adjustment of the mA and/or kV according to patient size, radiation dose was kept as low as reasonably achievable to obtain optimal diagnostic quality images. DICOM format imag e data is available electronically for review and comparison. FINDINGS: Lungs: Underlying emphysematous changes and fibrotic scarring are noted bilaterally. Patchy consolid ation is noted within the posterior aspect of the left lower lobe consistent with possible pneumonia. Nodular density is noted within the right lower lobe measuring 9 mm in the area of previous focal in filtrate and may represent nodular infiltrate. Close surveillance of this finding is suggested to con firm stability or improvement. Focal nodular infiltrate is also noted within the right upper lobe belem suring 13 mm and is stable compared with previous examination. There has been slight interval worseni ng nodular infiltrate within the left apex. Tracheostomy tube is noted with its tip above the hue. Mediastinum: There is good visualization of the great vessels of the middle mediastinum. No evidenc e of mediastinal or hilar adenopathy/mass. Coronary artery calcifications are noted. Pleurae: Calcified pleural plaque is again noted within the right posterior medial hemithorax. Nodul ar pleural thickening is noted along the posterior aspect of the left hemithorax and is stable. Axillae: Unremarkable. Bony Structures: Mild compression deformity involving T12 is noted. Miscellaneous: The examination was extended to include the upper abdomen, and both adrenal glands ar e normal in size and configuration. Anasarca is noted. CONCLUSION: 1. Diffuse anasarca. 2. Patchy consolidation is noted within the posterior aspect of the left lower lobe consistent with possible pneumonia. Nodular density is noted within the right lower lobe measuring 9 mm in the area o f previous focal infiltrate and may represent nodular infiltrate. Close surveillance of this finding is suggested to confirm stability or improvement. Focal nodular infiltrate is also noted within the r ight upper lobe measuring 13 mm and is stable compared with previous examination. There has been slig ht interval worsening nodular infiltrate within the left apex. 3. Underlying emphysematous changes and fibrotic scarring are noted bilaterally. 4. Calcified pleural plaque is again noted within the right posterior medial hemithorax. Nodular ple ural thickening is noted along the posterior aspect of the left hemithorax and is stable. 5. Coronary artery calcifications. 6. Mild compression deformity involving T12. Electronically signed by: Jason Crouch MD Board Certified Radiologist 10/13/2018 2:31 PM EST
[2018-10-13] MEDS: Bumetanide Inj 25 MG/100 ML BAG IV.CONT SCH ×2 (14:45→18:47)
[2018-10-13] MEDS: hydrALAZINE HCl Inj 20 MG/ML Vial IV.PUSH PRN (23:53)
[2018-10-14] MEDS: QUEtiapine 100 MG Tablet PO SCH ×2 (00:03→10:33)
[2018-10-14] MEDS: Dexmedetomidine Inj 1,000 MCG in Sodium Chlor 0.9% Inj 240 ML IV.CONT PRN (04:28)
[2018-10-14] MEDS: Albumin Human 5% Inj 500 ML IV.SIG SCH ×2 (04:28→15:25)
[2018-10-14] MEDS: Haloperidol Inj 5 MG/ML Ampul IM PRN (04:29)
[2018-10-14 04:30] LABS: Alanine Aminotransferase 17 U/L (12-78); Anion Gap 7 meq/L (5-15); Aspartate Aminotransferase 13 U/L (15-37); Blood Urea Nitrogen 92 mg/dL (7-18); Carbon Dioxide 24.7 meq/L (21.0-32.0); Chloride 112 meq/L (98-107); Glomerular Filtration Rate 29 mL/min (>89); Glucose,Random 157 mg/dL (74-106); Potassium 5.7 meq/L (3.5-5.1)
[2018-10-14] MEDS: Artificial Tears Opth Drops 15 ML Bottle EACH EYE SCH ×6 (04:30→23:28)
[2018-10-14] MEDS: Oral Hygiene Kit OROPHARYNG SCH ×4 (04:30→23:28)
[2018-10-14 04:33] LABS: Alkaline Phosphatase 162 U/L (45-117); Total Protein 7.3 g/dL (6.4-8.2)
[2018-10-14 04:36] LABS: Sodium 144 meq/L (136-145)
[2018-10-14] MEDS: Heparin - SQ 10,000 UNITS/ML Vial SQ SCH ×3 (05:16→21:51)
[2018-10-14] MEDS: Sod Chloride 0.9% Inj 1,000 ML IV.SIG SCH ×2 (05:34→20:04)
[2018-10-14 06:04] LABS: ABG Base Excess 0.7 mmol/L (-2-2); ABG PCO2 78 mmHg (38-42); ABG PO2 127 mmHg (61-120)
--- NOTE | 2018-10-14 08:12 | P.PNNPSY ---
- Behavior Intact: Impulsive/agitated - Psychosocial Moderate: Psychosocial, Family/other adjustment, Realistic expectation - Progress Notes/Response to Treatment Contents of Sessions: Adjustment, Level of consciousness Time with Patient: 30 minutes Premorbid Psychological Status: Premorbid Cognitive, Emotional and Behavioral Status: Unstable. The patient has high school years of education and a sporadic work history prior to this injury. The patient has presumed prior psychiatric difficulties, as described above. Substance abuse history is significant for ETOH. Behavioral Reactions of Patient and Family/Support System: Tenuous. The patients family is experiencing ongoing issues of adjustment given the nature of the injury, and this aspect of recovery will require ongoing monitoring. Emotional/Behavioral Status of Patient and Family/Support System: Tenuous. Pertinent issues, if appropriate to this patients clinical care, are described in detail above. Maximizing Acute Care Outcome: It is recommended that the patient be monitored for emergent behavioral impulsivity as the medical condition evolves. At this point in the recovery process, the patient does not have cognitive capacity as the patient is unable to understand a situation and its likely consequences, nor is the patient able to manipulate information rationally. Cognitive capacity will be assessed throughout the recovery process. Anticipated Problems: Ongoing areas of concern will include behavioral impulsivity, lack of insight and judgment, which is expected to improve with time and treatment. Treatment Plan: This clinician will continue to follow with you throughout the course of this patients critical care treatment, and I will be available to meet with the patients family/support system to facilitate their understanding and the ongoing care of their family member. The goals of neuropsychological intervention shall be both educational and supportive to the family/support system as is deemed clinically appropriate. Disinhibition Score: 14.00 Aggression Score: 14.00 Lability Score: 14.00 Agitated Behavior Total Score: 14 Impression: 68 year old man with multiple medical challenges resulting in major neurocognitive disorder. Progress Note Narrative: Day 10 of current hospitalization. This patient has multiple medical challenges , which are contributing to his agitation/restlessness. He is presently managed on VPA 250 BID, Seroquel 100 q8H and he is receiving PRN Haldol. Sedation needs are being taken care of in alternative fashion for agitation, and trauma team has d/c'ed Seroquel and Haldol at this time. I will follow. - Diagnosis (1) Major neurocognitive disorder due to multiple etiologies Status: Acute
[2018-10-14 09:40] LABS: Baso % (Auto) 0.2 % (0.0-2.0); Eos # (Auto) 0.1 th/mm3 (0.0-0.4); Eos % (Auto) 0.9 % (0.0-4.0); Lymph # (Auto) 0.3 th/mm3 (1.0-4.8); Lymph % (Auto) 3.1 % (9.0-44.0); Mean Corpuscular Hemoglobin 30.1 pg (27.0-34.0); Mean Corpuscular Volume 93.8 fL (80.0-100.0); Mean Platelet Volume 9.7 fL (7.0-11.0); Mono # (Auto) 0.9 th/mm3 (0.0-0.9); Mono % (Auto) 9.3 % (0.0-8.0); Neut # (Auto) 8.6 th/mm3 (1.8-7.7); Neut % (Auto) 86.5 % (16.0-70.0); Platelet Count 125 th/mm3 (150-450); Red Blood Count 2.67 mil/mm3 (4.50-5.90); Red Cell Distribution Width 17.6 % (11.6-17.2)
[2018-10-14] MEDS ORDERED: Cisatracurium Inj 100 MG in Sodium Chlor 0.9% Inj 240 ML IV.CONT PRN (10:00)
--- NOTE | 2018-10-14 10:09 | XR ---
EXAM DATE: 10/14/2018 9:59 AM EST AGE/SEX: 68 years / Male INDICATIONS: Respiratory distress CLINICAL DATA: This is the patient's subsequent encounter. Patient reports that signs and symptoms h ave been present for 4 - 6 days and indicates a pain score of Nonresponsive. MEDICAL/SURGICAL HISTORY: . Hypertension. Chronic obstructive pulmonary disease. Smoker. . C hest tube, left. Tracheostomy. [place] [facility] [place]13[place]. . FINDINGS: Tracheostomy and feeding tube are again noted. Aeration is stable with patchy bilateral parenchymal o pacities unchanged. Cardiac contours are stable. CONCLUSION: No significant change Electronically signed by: Solo Licona MD Board Certified Radiologist 10/14/2018 10:08 AM EST
[2018-10-14] MEDS: Propofol 1000 mg/100 ml Inj 1,000 MG/100 ML BOTTLE IV.CONT PRN ×3 (10:23→20:12)
[2018-10-14] MEDS: Sodium Chloride 0.9% 2 ML Flush BID IV.FLUSH SCH ×2 (10:33→20:10)
[2018-10-14] MEDS: Senna/Docusate Sodium 8.6/50 MG Tablet PO SCH ×2 (10:33→20:11)
[2018-10-14] MEDS: levoFLOXacin 500 MG Tablet PO SCH (10:33)
[2018-10-14] MEDS: Pantoprazole Inj 40 MG Vial IV.PUSH SCH (10:33)
[2018-10-14] MEDS: Chlorhexidine 0.12% Oral Kit 15 ML UDC OROPHARYNG SCH ×2 (10:34→20:03)
[2018-10-14] MEDS: hydrALAZINE HCl Inj 20 MG/ML Vial IV.PUSH PRN ×2 (11:14→23:28)
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
[2018-10-14] MEDS: MethylPREDNISolone Sod Succinate Inj 40 MG/ML Vial IV.PUSH SCH ×2 (12:21→20:11)
[2018-10-14 12:29] LABS: ABG Base Excess 1.6 mmol/L (-2-2); ABG PCO2 49 mmHg (38-42); ABG PO2 209 mmHg (61-120)
[2018-10-14 12:34] LABS: ABG Base Excess -0.4 mmol/L (-2-2); ABG PCO2 58 mmHg (38-42); ABG PO2 181 mmHg (61-120)
[2018-10-14 12:38] LABS: ABG Base Excess 1.1 mmol/L (-2-2); ABG PCO2 63 mmHg (38-42); ABG PO2 68 mmHg (61-120)
--- NOTE | 2018-10-14 13:31 | P.PNNP ---
Subjective Interval history: On ventilator FiO2 45 %. Creatinine continues to increase 2.24 today with potassium level of 5.7. <Tabitha Lockwood - Last Filed: 10/14/18 13:25> Physical Exam Vital signs: Vital Signs 10/13/18 13:35 10/13/18 13:40 10/13/18 14:00 Temperature Pulse Rate 107 H 108 H 119 H Respiratory Rate 33 H 42 H Blood Pressure 197/103 H 170/73 H Pulse Oximetry 98 99 100 10/13/18 14:05 10/13/18 14:30 10/13/18 14:35 Temperature Pulse Rate 118 H 122 H 123 H Respiratory Rate 45 H 26 H 24 Blood Pressure 148/89 H 138/74 Pulse Oximetry 100 99 10/13/18 15:00 10/13/18 15:05 10/13/18 15:35 Temperature Pulse Rate 117 H 116 H 80 Respiratory Rate 29 H 30 H 8 L Blood Pressure 133/80 109/58 L Pulse Oximetry 96 96 97 10/13/18 16:00 10/13/18 16:05 10/13/18 16:34 Temperature 97.7 F Pulse Rate 110 H 115 H Respiratory Rate 30 H 29 H 23 Blood Pressure 145/71 H Pulse Oximetry 95 95 98 10/13/18 16:35 10/13/18 17:00 10/13/18 17:05 Temperature Pulse Rate 89 79 81 Respiratory Rate 14 14 12 Blood Pressure 108/70 105/59 L Pulse Oximetry 99 98 98 10/13/18 17:35 10/13/18 18:00 10/13/18 18:05 Temperature Pulse Rate 98 H 107 H 109 H Respiratory Rate 23 21 17 Blood Pressure 177/81 H 175/70 H Pulse Oximetry 95 98 98 10/13/18 18:35 10/13/18 19:00 10/13/18 19:46 Temperature Pulse Rate 112 H 106 H 109 H Respiratory Rate 25 H 20 20 Blood Pressure 165/76 H 154/70 H Pulse Oximetry 98 99 100 10/13/18 20:00 10/13/18 20:05 10/13/18 21:00 Temperature 97.4 F L Pulse Rate 95 H 109 H 83 Respiratory Rate 16 26 H 13 Blood Pressure 129/77 136/63 Pulse Oximetry 100 100 100 10/13/18 21:35 10/13/18 22:00 10/13/18 22:35 Temperature Pulse Rate 105 H 101 H 90 Respiratory Rate 27 H 16 16 Blood Pressure 123/76 139/63 Pulse Oximetry 97 100 100 10/13/18 23:00 10/13/18 23:05 10/13/18 23:35 Temperature Pulse Rate 78 94 H 115 H Respiratory Rate 14 35 H 28 H Blood Pressure 190/91 H 188/83 H 167/70 H Pulse Oximetry 100 97 97 10/13/18 23:59 10/14/18 00:00 10/14/18 01:00 Temperature 97.4 F L Pulse Rate 106 H 110 H Respiratory Rate 22 18 21 Blood Pressure 124/60 123/65 Pulse Oximetry 100 100 98 10/14/18 01:35 10/14/18 02:00 10/14/18 02:35 Temperature Pulse Rate 110 H 110 H 109 H Respiratory Rate 24 24 18 Blood Pressure 115/64 148/70 H 124/65 Pulse Oximetry 98 98 98 10/14/18 03:00 10/14/18 03:55 10/14/18 04:00 Temperature 97.4 F L Pulse Rate 106 H 95 H Respiratory Rate 26 H 19 18 Blood Pressure 115/66 155/60 H Pulse Oximetry 98 100 100 10/14/18 05:00 10/14/18 05:05 10/14/18 06:00 Temperature Pulse Rate 91 H 90 107 H Respiratory Rate 15 15 23 Blood Pressure 109/56 L 138/61 Pulse Oximetry 99 99 99 10/14/18 06:38 10/14/18 07:00 10/14/18 08:00 Temperature 97.5 F L Pulse Rate 88 91 H Respiratory Rate 27 H 22 22 Blood Pressure 191/94 H 138/63 Pulse Oximetry 100 100 100 10/14/18 08:10 10/14/18 09:00 10/14/18 10:00 Temperature Pulse Rate 92 H 98 H Respiratory Rate 22 22 29 H Blood Pressure 173/77 H 157/72 H Pulse Oximetry 99 100 100 10/14/18 10:58 10/14/18 11:00 Temperature Pulse Rate 94 H 92 H Respiratory Rate 22 22 Blood Pressure 138/65 Pulse Oximetry 100 100 Intake & Output 10/13/18 10/14/18 10/14/18 18:59 06:59 18:59 Intake Total 2182 / 2182 1618 / 1618 Output Total 450 / 450 250 / 250 Balance 1732 / 1732 1368 / 1368 Weight 92.3 kg Intake: IV 1600 / 1600 750 / 750 Bumex Inj 25 mg In 100 ml @ 1 100 / 100 MG/HR 4 mls/hr IV.CONT .Q24H [facility] Rx#:[id number] Precedex Inj 1,000 MCG In NS 500 / 500 250 / 250 Inj 240 ML @ 0.2 MCG/KG/HR 4.13 mls/hr IV.CONT TITRATE PRN Rx# :[id number] Alburx 5% Inj 500 ML @ 250 mls/ 500 / 500 hr IV.SIG Q12H [facility] Rx#:[id number] NS Inj 1,000 ML @ 40 mls/hr IV. 1000 / 1000 SIG .Q24H [facility] Rx#:[id number] Tube Feeding 462 / 462 808 / 808 Tube Irrigant 120 / 120 Water Bolus Amount 60 / 60 Output: Urine 250 / 250 Urine Amount (Catheter) 400 / 400 Indwelling Urethral Catheter 400 / 400 Wound Vac Amount 50 / 50 Left Flank 50 / 50 Other: Mode Setting Left Flank Continuous Continuous Date of Last Bowel Movement 10/13/18 10/13/18 # Bowel Movements 1 Narrative: GENERAL: Eyes open not responding to commands. SKIN: Warm and dry. NECK: Supple, trachea midline. No JVD. Tracheotomy CARDIOVASCULAR: Regular rate and rhythm without murmurs, gallops, or rubs. RESPIRATORY: Breath sounds rhonchi bilaterally. Opening mouth wider at each breath. GASTROINTESTINAL: Abdomen soft, non-tender, nondistended. + BS. GENITOURINARY: Indwelling Anthony catheter, dark colored urine. MUSCULOSKELETAL: No cyanosis, generalized pitting edema. - Urinary Catheter Management Indwelling Temp Sensing Catheter Cath placed during this visit: yes, but has since been removed by the nurse Reason for continuing: Decision to DC catheter Removal date: 10/08/18 Removal time: 16:20 Condom Cath placed during this visit: no Indwelling Urethral Catheter Cath placed during this visit: yes Reason for continuing: Other continuation reason Insertion date: 10/10/18 Insertion time: 09:35 <Tabitha Lockwood - Last Filed: 10/14/18 13:25> Vital signs: Vital Signs 10/13/18 22:00 10/13/18 22:35 10/13/18 23:00 Temperature Pulse Rate 101 H 90 78 Respiratory Rate 16 16 14 Blood Pressure 139/63 190/91 H Pulse Oximetry 100 100 100 10/13/18 23:05 10/13/18 23:35 10/13/18 23:59 Temperature Pulse Rate 94 H 115 H Respiratory Rate 35 H 28 H 22 Blood Pressure 188/83 H 167/70 H Pulse Oximetry 97 97 100 10/14/18 00:00 10/14/18 01:00 10/14/18 01:35 Temperature 97.4 F L Pulse Rate 106 H 110 H 110 H Respiratory Rate 18 21 24 Blood Pressure 124/60 123/65 115/64 Pulse Oximetry 100 98 98 10/14/18 02:00 10/14/18 02:35 10/14/18 03:00 Temperature Pulse Rate 110 H 109 H 106 H Respiratory Rate 24 18 26 H Blood Pressure 148/70 H 124/65 115/66 Pulse Oximetry 98 98 98 10/14/18 03:55 10/14/18 04:00 10/14/18 05:00 Temperature 97.4 F L Pulse Rate 95 H 91 H Respiratory Rate 19 18 15 Blood Pressure 155/60 H 109/56 L Pulse Oximetry 100 100 99 10/14/18 05:05 10/14/18 06:00 10/14/18 06:38 Temperature Pulse Rate 90 107 H Respiratory Rate 15 23 27 H Blood Pressure 138/61 Pulse Oximetry 99 99 100 10/14/18 07:00 10/14/18 08:00 10/14/18 08:10 Temperature 97.5 F L Pulse Rate 88 91 H Respiratory Rate 22 22 22 Blood Pressure 191/94 H 138/63 Pulse Oximetry 100 100 99 10/14/18 09:00 10/14/18 10:00 10/14/18 10:58 Temperature Pulse Rate 92 H 98 H 94 H Respiratory Rate 22 29 H 22 Blood Pressure 173/77 H 157/72 H Pulse Oximetry 100 100 100 10/14/18 11:00 10/14/18 11:06 10/14/18 12:00 Temperature 97.9 F Pulse Rate 92 H 96 H 104 H Respiratory Rate 22 22 24 Blood Pressure 138/65 129/59 L 125/58 L Pulse Oximetry 100 100 100 10/14/18 13:00 10/14/18 14:00 10/14/18 15:00 Temperature Pulse Rate 97 H 76 106 H Respiratory Rate 24 24 24 Blood Pressure 120/59 L 109/59 L 161/69 H Pulse Oximetry 100 100 100 10/14/18 15:15 10/14/18 16:00 10/14/18 17:00 Temperature 98.0 F Pulse Rate 107 H 95 H 100 H Respiratory Rate 24 24 24 Blood Pressure 138/65 128/62 Pulse Oximetry 100 100 98 10/14/18 18:00 10/14/18 20:16 Temperature Pulse Rate 102 H 101 H Respiratory Rate 24 24 Blood Pressure 124/80 Pulse Oximetry 98 100 Intake & Output 10/14/18 10/14/18 10/15/18 06:59 18:59 06:59 Intake Total 1618 / 1618 3561 / 3561 100 / 100 Output Total 250 / 250 400 / 400 Balance 1368 / 1368 3161 / 3161 100 / 100 Weight 92.3 kg Intake: IV 750 / 750 2630 / 2630 100 / 100 Bumex Inj 25 mg In 100 ml @ 1 100 / 100 MG/HR 4 mls/hr IV.CONT .Q24H [facility] Rx#:[id number] Nimbex Inj 100 MG In NS Inj 240 250 / 250 ML @ 1 MCG/KG/MIN 13.84 mls/hr IV.CONT TITRATE PRN Rx#: [id number] Precedex Inj 1,000 MCG In NS 250 / 250 180 / 180 Inj 240 ML @ 0.2 MCG/KG/HR 4.13 mls/hr IV.CONT TITRATE PRN Rx# :[id number] Diprivan 1000 mg/100 ml Inj 1, 100 / 100 100 / 100 000 mg In 100 ml @ 5 MCG/KG/MIN 2.769 mls/hr IV.CONT TITRATE PRN Rx#:[id number] Alburx 5% Inj 500 ML @ 250 mls/ 500 / 500 1000 / 1000 hr IV.SIG Q12H [facility] Rx#:[id number] NS Inj 1,000 ML @ 40 mls/hr IV. 1000 / 1000 SIG .Q24H [facility] Rx#:[id number] Tube Feeding 808 / 808 871 / 871 Tube Irrigant 60 / 60 Water Bolus Amount 60 / 60 Output: Urine 250 / 250 Urine Amount (Catheter) 400 / 400 Indwelling Urethral Catheter 400 / 400 Wound Vac Amount 0 / 0 Right Upper Arm 0 / 0 Other: Mode Setting Left Flank Continuous Right Upper Arm Continuous Date of Last Bowel Movement 10/13/18 # Bowel Movements 0 - Urinary Catheter Management Indwelling Temp Sensing Catheter Cath placed during this visit: no Condom Cath placed during this visit: no Indwelling Urethral Catheter Cath placed during this visit: no <Karmen Brito - Last Filed: 10/14/18 21:37> Assessment and Plan - Assessment (1) Acute kidney injury Code(s): N17.9 - Acute kidney failure, unspecified Status: Acute Plan: Acute kidney injury with a creatinine of 1.30 which has increased 0.73 on day of consult Avoid nephrotoxins including NSAIDS, IV contrast, and aminoglycosides. Creatinine continues to increase at 2.24, continues have edema Urinary output remains on lower side at 400 ml/24 hours, has indwelling Anthony catheter. Potassium level elevated at 5.7 will treat with Kayexalate. Palliative care meeting. If continues with aggressive goals will proceed with vas cath placement and HD as with aggressive diuretics patient remains fluid overloaded with low UOP. (2) Anemia Code(s): D64.9 - Anemia, unspecified Status: Acute Plan: HGB stable at 8.0. Iron stores adequate. <Tabitha Lockwood - Last Filed: 10/14/18 13:25> - Assessment (1) Acute kidney injury Code(s): N17.9 - Acute kidney failure, unspecified Status: Acute Plan: Patient seen and examined, agree with above. Patient has AQUILINO and anasarca. K is 5.7, Kayexalate given. Creatinine also increasing. Palliative care meeting today. May need HD if continue to proceed with aggressive treatment. (2) Anemia Code(s): D64.9 - Anemia, unspecified Status: Acute <Karmen Brito - Last Filed: 10/14/18 21:37>
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
[2018-10-14] MEDS ORDERED: Morphine Inj 4 MG/ML Vial IV.PUSH PRN (15:12)
[2018-10-14] MEDS ORDERED: fentaNYL 10 mcg/mL Premix Drip 2,500 MCG/250 ML BAG IV.SIG PRN (16:06)
[2018-10-14] MEDS: Bumetanide Inj 25 MG/100 ML BAG IV.CONT SCH (16:35)
[2018-10-15] MEDS: Propofol 1000 mg/100 ml Inj 1,000 MG/100 ML BOTTLE IV.CONT PRN ×3 (01:09→11:36)
[2018-10-15] MEDS: Oral Hygiene Kit OROPHARYNG SCH (03:59)
[2018-10-15] MEDS: Artificial Tears Opth Drops 15 ML Bottle EACH EYE SCH ×2 (04:00→08:23)
[2018-10-15] MEDS: Albumin Human 5% Inj 500 ML IV.SIG SCH (04:16)
[2018-10-15] MEDS: Heparin - SQ 10,000 UNITS/ML Vial SQ SCH (05:25)
[2018-10-15 06:03] LABS: ABG Base Excess -1.4 mmol/L (-2-2); ABG PCO2 57 mmHg (38-42); ABG PO2 141 mmHg (61-120)
--- NOTE | 2018-10-15 06:30 | XR ---
EXAM DATE: 10/15/2018 6:12 AM EST AGE/SEX: 68 years / Male INDICATIONS: Respiratory failure. CLINICAL DATA: This is the patient's subsequent encounter. Patient reports that signs and symptoms h ave been present for 1 month and indicates a pain score of Nonresponsive. MEDICAL/SURGICAL HISTORY: . Hypertension. Chronic obstructive pulmonary disease. Smoker. . Ch est tube, left. Tracheostomy. COMPARISON: [facility] [place], CHEST 1V SINGLE AP, 10/14/2018. . FINDINGS: Single view the chest some joints the tracheostomy tube is in good position. There is a minimal conso lidation in the right lower lobe. I don't see any visible pneumothorax. Numerous left-sided rib fract ures are unchanged. CONCLUSION: Numerous left-sided rib fractures without evidence of pneumothorax. Patchy infiltrates throughout the lungs Electronically signed by: Nico Ace MD Board Certified Radiologist 10/15/2018 6:29 AM EST
[2018-10-15] MEDS: Pantoprazole Inj 40 MG Vial IV.PUSH SCH (08:22)
[2018-10-15] MEDS: Chlorhexidine 0.12% Oral Kit 15 ML UDC OROPHARYNG SCH (08:22)
[2018-10-15] MEDS: levoFLOXacin 500 MG Tablet PO SCH (08:22)
[2018-10-15] MEDS: Sodium Chloride 0.9% 2 ML Flush BID IV.FLUSH SCH (08:24)
[2018-10-15] MEDS: Senna/Docusate Sodium 8.6/50 MG Tablet PO SCH (08:25)
[2018-10-15] MEDS: MethylPREDNISolone Sod Succinate Inj 40 MG/ML Vial IV.PUSH SCH (08:25)
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
[2018-10-15 08:40] LABS: Baso % (Auto) 0.3 % (0.0-2.0); Hematocrit 24.1 % (39.0-51.0); Lymph # (Auto) 0.1 th/mm3 (1.0-4.8); Lymph % (Auto) 1.5 % (9.0-44.0); Mean Corpuscular HGB Conc 33.2 % (32.0-36.0); Mean Corpuscular Hemoglobin 30.3 pg (27.0-34.0); Mean Corpuscular Volume 91.2 fL (80.0-100.0); Mean Platelet Volume 9.7 fL (7.0-11.0); Mono # (Auto) 0.7 th/mm3 (0.0-0.9); Mono % (Auto) 7.6 % (0.0-8.0); Neut # (Auto) 8.6 th/mm3 (1.8-7.7); Neut % (Auto) 90.6 % (16.0-70.0); Platelet Count 157 th/mm3 (150-450); Red Blood Count 2.65 mil/mm3 (4.50-5.90); Red Cell Distribution Width 17.3 % (11.6-17.2); White Blood Count 9.5 th/mm3 (4.0-11.0)
[2018-10-15 09:11] LABS: Calcium 8.5 mg/dL (8.5-10.1); Carbon Dioxide 25.4 meq/L (21.0-32.0); Potassium 6.2 meq/L (3.5-5.1)
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
[2018-10-15 10:50] VITALS: BP 101/55; PULSE 92; RESP 16; TEMP 98; O2SAT 100
[2018-10-15] MEDS ORDERED: Acetaminophen 650 MG Supp RECTAL PRN (12:25)
[2018-10-15] MEDS ORDERED: Hyoscyamine Inj 0.5 MG/ML Ampul IV.PUSH PRN (12:25)
[2018-10-15] MEDS ORDERED: HYDROmorphone PF Inj 1 MG/ML Ampul IV.PUSH PRN ×2 (12:25)
[2018-10-15] MEDS ORDERED: Bisacodyl 10 MG Supp RECTAL PRN (12:25)
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
[2018-10-15] MEDS ORDERED: fentaNYL Citrate Inj 100 MCG/2 ML Ampul IV.PUSH ONE ×2 (13:30→14:00)
[2018-10-15] MEDS ORDERED: Hyoscyamine Inj 0.5 MG/ML Ampul IV.PUSH ONE (13:45)
[2018-10-15] MEDS ORDERED: HYDROmorphone PF Inj 1 MG/ML Ampul IV.PUSH SCH (16:00)
--- NOTE | 2018-10-16 06:27 | P.DN ---
- Provider Primary care physician: UNKNOWN Consults: 10/05/18 07:07 Consult to Neuropsychology Routine Consulting Provider: Bryan Foley Preferred Cap Coverer:: Bryan Foley, PhD Reason for Consultation: Eval and treat Notified:: Physician Spoke with:: Dr Foley Date Notified:: 10/05/18 Time Notified:: 07:30 Comments:: left MSG on Dr Foley VM. Ordering Provider: LANA 10/05/18 08:42 HUB Only Consult Order Routine Consulting Provider: [facility] Reason for Consultation: LTACH 10/07/18 10:15 Consult to Infectious Diseases Routine Consulting Provider: Rk hWite Reason for Consultation: s/p trauma Returned from [facility] On cefepime s/p debreidment of LEFT chest with wound vac. Notified:: Service Spoke with:: Reyes Date Notified:: 10/07/18 Time Notified:: 10:20 Ordering Provider: CATERINA 10/11/18 09:10 Consult to Nephrology Routine Consulting Provider: Karmen Brito Does the patient have a Architectural Modeler who follows them?: No Preferred Nephrology Cap Coverer:: Rehabilitation Team Lead Physician Reason for Consultation: s/p trauma Elevated BUN/Creat Notified:: Service Spoke with:: Sabina Date Notified:: 10/11/18 Time Notified:: 09:17 Ordering Provider: CATERINA 10/14/18 09:28 Consult to Palliative Care Routine Consulting Provider: Keny Galvan Reason for Consultation: Goals of care Notified:: Service Spoke with:: aron Date Notified:: 10/14/18 Time Notified:: 09:59 Ordering Provider: LANA - Date and Time Date of admission: 10/04/18 20:20 Date of : 10/15/18 Time of : 17:28 - Summary Procedures: 09/15: L CT placed 09/16: Intubated 09/16: L CT placed (32 F) 09/23: DC CT #1 09/26: DC CT #2 09/29: 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 09/30: DINNER COOK placement ([facility]) (Unk date) Debridement of LEFT chest wall with wound vac placement ([facility]) 12/10: Returned from [facility] 10/10: XLT Trach change Brief History: S/P SKILLED NURSING Result Diagrams: 10/15/18 07:45 10/15/18 07:45 Significant Findings: Abnormal Lab Results 10/15/18 10/15/18 07:45 07:45 WBC 9.5 RBC 2.65 L Hgb 8.0 L Hct 24.1 L MCV 91.2 MCH 30.3 MCHC 33.2 RDW 17.3 H Plt Count 157 MPV 9.7 Neut % (Auto) 90.6 H Lymph % (Auto) 1.5 L [place] % (Auto) 7.6 Eos % (Auto) 0.0 Baso % (Auto) 0.3 Neut # (Auto) 8.6 H Lymph # (Auto) 0.1 L [place] # (Auto) 0.7 Eos # (Auto) 0.0 Baso # (Auto) 0.0 WBC Differential . Differential Comment Auto diff final Sodium 144 Potassium 6.2 H Chloride 109 H Carbon Dioxide 25.4 Anion Gap 10 BUN 106 H Creatinine 2.77 H Estimated GFR 23 L Random Glucose 140 H Calcium 8.5 Hospital Course: INJURIES: LEFT rib fx (1) LEFT tension PTX w/ extensive SQ emphysema Pneumomediastinum ?Traumatic occlusion of LEFT subclavian vein Incidental finding of nodular lung densities RIGHT lung PMHx: COPD on home oxygen, HTN, Diverticulosis, ETOH abuse, tobacco use 10/05/2018 Neurologically patient is awake alert but disoriented sometimes follows commands sometimes does not Quite agitated requiring neuro behavioral modification Precedex Haldol Ativan as needed Hemodynamically patient is stable Bilateral breath sounds patient is tracheostomy on assist control ventilation ABGs consistent with hypercapnia and compensated respiratory acidemia. 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 lives with chronic hypercapnia and compensated respiratory acidemia/metabolic alkalemia Correcting this pattern would be unwise considering the patient's respiratory drive is clearly based on hydrogen ion concentration in the fourth ventricle which is again predicated by the end-tidal CO2 Patient has significant secretions however doing well on CPAP. Will place on trach collar/T-piece today and see how patient does as far as separation from the ventilator Left chest wound nicely treated with wound VAC Renal function preserved Enteral feeding restarted Patient will transfer to LTAC when insurance approval comes through 10/07/2018 Neurologically patient is somewhat improved he is more awake alert and oriented today Following commands consistently tracking and focusing and attempting to communicate Hemodynamically patient remains intact Bilateral breath sounds tolerate CPAP well and was placed on trach collar which she is tolerating as well Will keeps on CPAP overnight on trach collar during the day and hopefully separate from the ventilator next 24 hours completely Secretions have definitely decreased Wound VAC in left chest wound draining serosanguineous fluid clean Abdomen soft enteral feeds via the Dobbhoff tube Renal function preserved and patient was somewhat overloaded now he is normovolemic As far since disposition is concerned, insurance company refused authorization to place patient in LTAC and I spoke peer to peer with a physician there who of course does not know anything about the patient yet he stated that patient is probably best served to stay in this hospital because he is not about to give 27 days of LTAC authorization I explained to him the need for LTAC placement, physical therapy the patient will require and further progression and all this fell on deaf ears So this is another example of of a bureaucrat disguised as a physician directing care of the patient he has never seen, treated, or in any other way encountered, other than on a piece of paper. 10/08/2018 Patient follows commands communicates tracks He did not sustain neurologic injury however he did need a long time to overcome effects of withdrawal and ICU delirium Motorically fully intact Hemodynamically patient is intact with some blood pressure control Bilateral good breath sounds patient tolerated CPAP with 12 cm of pressure support and gradually being decreased to transition to trach collar He should be able to be from the ventilator next 2 days Patient was denied by insurance company for the second time placement LTAC which medically would be appropriate at this time for this gentleman. 10/09/2018 No change in status patient is quite awake and alert trying to communicate Gets very agitated and sometimes angry to inability to talk Currently on Seroquel and valproic acid with some additional Haldol at times Left chest tube wound VAC changed today and drainage is serous Bilateral breath sounds patient tried on trach collar today however he did not tolerate it had to be placed on CPAP He just simply is not ready to come off the ventilator yet Abdomen soft enteral feeds tolerated Renal function preserved 10/10/2018 Neurologically patient is grossly unchanged He remains agitated restless pulling on lines and catheters and bucking the ventilator Had to adjust sedation place patient back on Precedex Hemodynamically patient remained stable and has not spiked fevers For about 48 hours patient was off and on able to tolerate CPAP and T-piece but now he does not anymore for he becomes restless and developed rapid shallow respirations This morning tracheostomy cannula got partially dislodged and I replaced this with the XL distal 8 cannula bringing the peak inspiratory pressures and ventilatory mechanics back to normal Patient now on assist control ventilation Bilateral breath sounds and mechanics improved since sedation reinstituted Patient spiked white count is currently on cefepime and I will leave this up to infectious disease specialist Abdomen soft enteral feeds Via Dobbhoff tolerated patient has bowel movements Renal function preserved At this point I believe patient has a septic source probably pulmonary and will make sure that he is managed adequately with early antibiotics and see which way this goes 10/11/2018 Patient remains extremely restless and has periods of bucking of the ventilator and totally known cooperative Need sedation with Precedex Haldol valproic acid and Seroquel Adjusted by Dr. Foley and neuropsychology care is greatly appreciated Hemodynamically stable Bilateral breath sounds on assist control ventilation with periods of CPAP Initially patient tolerated well but now became agitated and hard to control to cooperate with ventilator Good PO2 FiO2 gradient Abdomen soft and enteral feeds tolerated Renal function preserved but gradually deteriorating with rising BUN despite volume load I believe at this point patient is combination of intravascular depletion and extravascular hypervolemia i.e. anasarca in face of hypoalbuminemia and probably a systemic inflammatory response type reaction with large amount of third space This would explain rising BUN in face of normal creatinine and oliguria Patient needs IV fluids as well as Lasix to mobilize the third space and still preserve intravascular volume will give 1 unit PRBC 10/12/2018 No general change in status Neurologically patient is intact however he is very restless and agitated and hard to manage Episodes of panic where he fights the ventilator Patient placed on Valium protocol as per Dr. Foley Hemodynamically intact Bilateral breath sounds patient remains on assist control ventilation with quite improved PO2 FiO2 gradient and mild hypercapnia Attempts to place patient on CPAP have failed at this point due to agitation and shallow rapid breathing Patient has severe COPD and this is going to be Herculean task therefore patient will be best served in an LTAC facility at this time Abdomen soft Renal function is preserved however patient does have elevated BUN and creatinine and nephrology has been consulted Patient has large third space interstitial edema volume while his intravascular space is relatively depleted Agree with albumin/Bumex combo regimen Not interactive care at this point patient remains on antibiotics and on the ventilator We will try to make attempt to place patient to LTAC again 10/13/2018 Patient neurologically unchanged he is somewhat confused and agitated hard to manage Only difference will be patient is not following commands as initially did We will repeat CT scan of the brain Moves all 4 extremities Hemodynamically patient is intact however in the last few days required large amount of fluids for hemodynamic support Patient has a massive third space loss and picture of systemic inflammatory response but without actual source Bilateral breath sounds patient is bucking the ventilator and is tachypneic Excellent PO2 FiO2 gradient on 35% FiO2 however pulmonary mechanics obviously not agreeing with the patient's needs Switch the patient to pressure control mode which he seems to be tolerating much better Abdomen is soft enteral feeds as tolerated patient had several bowel movements which are pasty and are normal indicative of any intestinal infection Renal function is precarious with a BUN finally coming down but creatinine still hovering around 1.9 It is not quite clear why this is happening and what is prompting the third space loss and SIRS type picture with renal function elevation We will repeat CT scan of the brain chest abdomen and pelvis starting point and see if there is any questionable septic source Nephrology help is greatly appreciated Addendum I reviewed CT of the head, chest abdomen and pelvis. Except for extensive anasarca patient has no intra-abdominal or thoracic pathology that would account for his systemic inflammatory response type reaction Well ammonia level is slightly elevated certainly does not account for patient' s encephalopathy The fact that patient has systemic inflammatory response clearly affects the brain and some swelling may occur resulting in encephalopathy Patient is being treated symptomatically and will see how he does 10/14/2018 Neurologically patient is sedated on Precedex/switching to propofol Neurologically is unchanged and very agitated with decrease of sedation unable to cooperate with ventilatory support Hemodynamically remained stable Bilateral breath sounds very poor inspiratory effort and very poor oxygen movement PO2 FiO2 gradient worsened in last 24 hours and patient became severely hypercapnic and has developed respiratory acidosis Peak inspiratory pressures have risen from 30-50 cmH2O Patient does not tolerate pressure control ventilation and this worsened the situation even more Patient is now back on assist control ventilation and in order to get any chest and air movement patient had to be paralyzed with cisatracurium In summary this patient has exacerbation of COPD superimposed on previous lung injury and fibrosis. He was oxygen dependent at home and at this point exacerbation of COPD has led to above changes. Patient has severely decreased pulmonary and chest wall compliance which will slightly improve now with cisatracurium Based on this patient is now paralyzed on cisatracurium bronchodilators and Solu -Medrol. Abdomen is soft Renal function is further deteriorating resulting in rise in BUN and creatinine and I agree with nephrology that this point patient will need a Vas-Cath and dialysis for the same. Based on the patient's deterioration pre-existing medical conditions and now multiorgan failure this patient has no reasonable chance of meaningful recovery and palliative care has been consulted to address this. I have spoken to the friend who is his healthcare surrogate. In face of no reasonable chance of recovery healthcare surrogate has chosen to withdraw the care at this point and we will honor those wishes Palliative care help is greatly appreciated 10/15/2018 Neurologically unchanged Nimbex-cisatracurium has been discontinued yesterday in the dissipation of withdrawal of care Patient remains on small dose propofol and fentanyl Hemodynamically patient is now deteriorating with more third space loss Bilateral breath sounds and deteriorating pulmonary function. Patient had severe exacerbation of COPD in addition to the systemic inflammatory response sequela resulting in peak inspiratory pressures and hypoxia and hypercarbia Renal function continues to deteriorate and I agree with nephrology as far as dialysis considering the patient is now supportive care and will be withdrawn by hospice no further therapy will be administered Patient is scheduled for withdrawal of care as per health proxy surrogate wishes Andres was compassionately extubated on 10/15/2018 and provided comfort care at the direction of the palliative care team. Patient was pronounced on 10/15/2018 at 1728 by the RN. Family was present when patient passed.
== END 2018-10-15 19:57 | disposition expired | DRG 207 ==
LOC: N03 20:30
PROVIDERS: ADMIT Family Medicine Hospice and Palliative Medicine; ATTEND Family Medicine Hospice and Palliative Medicine
CPT/HCPCS: 36430; 36600; 36620; 70450; 71010; 71045; 71250; 74176; 76775; 76937; 80048; 80053; 80069; 81001; 82140; 82570; 82728; 82805; 83540; 83550; 83690; 83935; 84132; 84165; 84300; 84443; 85025; 85027; 86850; 86900; 86901; 86923; 87070; 87077; 87086; 87186; 87205; 87641; 92610; 93005; 93970; 94003; 94640; 94657; 94664; 94665; 97110; 97163; 97167; 97530; C9113; G0195; J0360; J0692; J1630; J1644; J1940; J2270; J2405; J2704; J2920; J3010; J7030; J7050; J7506; J7512; P9016; P9045; S0171